=== PATIENT | male | born 1945 | race African-American/Black ===

== ENCOUNTER → 2016-12-17 | Outpatient (CLI) | payer MEDICARE, OTHER ==
--- NOTE | 2016-12-17 12:09 | MR ---
EXAMINATION TYPE: MR lumbar spine wo con DATE OF EXAM: 12/17/2016 COMPARISON: Prior MRI lumbar spine August 13, 2009. HISTORY: Lumbar stenosis and Lumbar DDD per order. Left-sided pain when walking into leg for 6 months per patient. TECHNIQUE: Multiplanar, multisequence imaging of the lumbar spine is performed without IV contrast. FINDINGS: Sagittal images of the lumbar spine show vertebral body heights to remain satisfactory. The re is straightening of lumbar spine on sagittal images. There is subtle grade 1 anterolisthesis of L3 on L4 new from prior exam measured 2 to 3 mm. There is persistent disc desiccation L3-L4 and L4-L5 l evels with mild to moderate disc space narrowing now present. There is mild anterior spurring with he terogeneous endplate changes L4-L5 level seen, they're Schmorl node in the inferior L4 endplate redem onstrated that is more prominent versus prior. No large posterior disc herniations are seen on sagitt al images The conus medullaris is stable in position ending at L1-L2 disc space level. The bone bonnie ow signal intensity otherwise is within normal limits. Axial images show the T12-L1, L1-L2, L2-L3 levels all to remain within normal limits. Axial images at L3-L4 level show mild facet degenerative changes and ligamentum flavum hypertrophy mi ldly effacing posterior lateral thecal sac on axial image 14. There is mild to moderate broad disc bu lge seen minimally effacing anterior thecal sac. There is mild to minimal bilateral anterior inferior neural foraminal narrowing. Some progression in findings from prior study is seen. Axial images at L4-L5 level show moderate broad disc bulge and mild facet degenerative changes bilate rally. There is mild effacement of the anterior thecal sac and posterior lateral thecal sac. There is mild to moderate bilateral anterior inferior neural foraminal narrowing at this level identified. Axial images at the L5-S1 level show mild facet degenerative changes bilaterally. There is broad-base d central disc protrusion seen but spinal canal is preserved and bilateral neural foramina are patent . No suspicious retroperitoneal findings are seen. Paraspinal muscle bulk is preserved. IMPRESSION: Straightening of lumbar spine is redemonstrated. There is new spondylolisthesis L3-L4 lev el. There is interval progression of degenerative changes mid to lower lumbar spine as detailed above . No prominent disc herniation is seen to account for patient's left-sided radiculopathy type symptom s. No significant spinal canal stenosis is noted.
== END | disposition home or self-care (01) ==
LOC: RADMRIMAIN 11:14
PROVIDERS: ATTEND Orthopaedic Surgery
DX: M43.16 Spondylolisthesis, lumbar region (principal); M47.816 Spondylosis without myelopathy or radiculopathy, lumbar region; R22.42 Localized swelling, mass and lump, left lower limb
CPT/HCPCS: 72148

== ENCOUNTER → 2017-04-22 | Day surgery (SDC) | payer MEDICARE, OTHER ==
[2017-04-20 14:30] VITALS: BMI 26.9
[~2017-04-22] MED LIST: LACTATED RINGERS 1,000 ML IV SCH; LIDOCAINE 1% 20 ML VIAL (10MG/ML) FOR IV START INTRADERMA ONE; PROPOFOL 10 MG/ML 20 ML VIAL IV ONE
[2017-04-22 11:30] VITALS: TEMP 97.8
--- NOTE | 2017-04-22 11:50 | P.GSHP ---
History of Present Illness H&P Date: 04/22/17 Chief Complaint: Screening colonoscopy, change in bowel habits This a 71-year-old male referred from Dr. Quevedo. Patient presents today for screening colonoscopy. His last colonoscopy is over 6 years ago. He's had some change in bowel habits with increasing constipation. Past Medical History Past Medical History: Eye Disorder, Hyperlipidemia, Hypertension Additional Past Medical History / Comment(s): glaucoma julio eyes,myasthenia gravis History of Any Multi-Drug Resistant Organisms: None Reported Additional Past Surgical History / Comment(s): thymus gland removed Past Anesthesia/Blood Transfusion Reactions: No Reported Reaction Smoking Status: Never smoker - Past Family History Mother Family Medical History: Cancer Additional Family Medical History / Comment(s): lung Medications and Allergies Home Medications Medication Instructions Recorded Confirmed Type Aspirin EC [Ecotrin] 325 mg PO DAILY 04/20/17 04/22/17 History Brinzolamide/Brimonidine Tart 1 drop BOTH EYES BID 04/20/17 04/22/17 History [Simbrinza 1%-0.2% Eye Drops] Latanoprost Ophth [Xalatan 0.005%] 1 drops BOTH EYES HS 04/20/17 04/22/17 History NIFEdipine [Procardia XL] 90 mg PO QAM 04/20/17 04/22/17 History Simvastatin [Zocor] 20 mg PO DAILY 04/20/17 04/22/17 History Tamsulosin HCl [Flomax] 0.4 mg PO DAILY 04/20/17 04/22/17 History Allergies Allergy/AdvReac Type Severity Reaction Status Date / Time No Known Allergies Allergy Verified 04/22/17 11:31 Surgical - Exam Vital Signs Temp Pulse Resp BP Pulse Ox 97.8 F 58 L 16 166/77 96 04/22/17 11:29 04/22/17 11:29 04/22/17 11:29 04/22/17 11:29 04/22/17 11:29 - General well developed, no distress - Eyes PERRL - ENT normal pinna - Neck no masses - Respiratory normal expansion - Cardiovascular Rhythm: regular - Abdomen Abdomen: soft, non tender Assessment and Plan Assessment: Change in bowel habit with constipation. We'll perform screening colonoscopy.
--- NOTE | 2017-04-22 12:04 | P.OP ---
Date of Procedure: 04/22/17 Preoperative Diagnosis: Screening colonoscopy, change in bowel habits, constipation Postoperative Diagnosis: Normal colonoscopy Procedure(s) Performed: Colonoscopy Anesthesia: MAC Surgeon: Rakesh Watters Pathology: none sent Condition: stable Disposition: PACU Description of Procedure: N PROCEDURE: The patient was placed on the endoscopy table in the lateral position. Digital rectal examination was performed which revealed no abnormalities. The prostate was symmetrical without nodules. Flexible colonoscope was then placed in the patient's anus and passed throughout the entire colon. The ileocecal valve was visualized. The cecum, ascending, transverse, descending and sigmoid colon were normal. The rectum was normal as well. There were no masses, polyps or diverticula noted in the entire colon. SUMMARY OF FINDINGS: Normal colonoscopy.
[2017-04-22 12:24] VITALS: RESP 16
[2017-04-22 12:53] VITALS: BP 146/72; PULSE 45
== END ==
LOC: ORWHC2ENDO 10:33
PROVIDERS: ATTEND Surgery
DX: K59.00 Constipation, unspecified (principal); I10 Essential (primary) hypertension; H40.9 Unspecified glaucoma; E78.5 Hyperlipidemia, unspecified; G70.00 Myasthenia gravis without (acute) exacerbation; Z79.82 Long term (current) use of aspirin; Z79.899 Other long term (current) drug therapy; R19.4 Change in bowel habit
CPT/HCPCS: 45378; J2704

== ENCOUNTER → 2018-04-25 | Outpatient (CLI) | payer MEDICARE ==
--- NOTE | 2018-04-26 18:19 | CT ---
EXAMINATION TYPE: CT abdomen pelvis w con DATE OF EXAM: 04/25/2018 COMPARISON: MRI lumbar spine dated 12/17/2016 HISTORY: Change in bowels CT DLP: 1582 mGycm Automated exposure control for dose reduction was used. TECHNIQUE: Helical acquisition of images was performed from the lung bases through the pelvis. CONTRAST: Performed with Oral Contrast and with IV Contrast, patient injected with 100 mL of Isovue 300. FINDINGS: LUNG BASES: Very minimal left basilar subsegmental dependent atelectasis is present. LIVER/GB: Liver is unremarkable and homogeneous enhancement. No intrahepatic biliary ductal dilatatio n is seen. No cholelithiasis. PANCREAS: No significant abnormality is seen. SPLEEN: No significant abnormality is seen. ADRENALS: No significant abnormality is seen. KIDNEYS: There are bilateral nonobstructing renal calculi. There is a punctate left lower pole renal calculus and a 3 mm left lower pole renal calculus. On the right there are 3 4 mm renal calculi of th e lower pole. Emanating from the left lower pole there is a 1.6 cm renal cyst. No hydronephrosis of e ither kidney. REPRODUCTIVE ORGANS: The prostate gland is heterogenous and enlarged measuring 6.6 cm in transverse d imension. There is asymmetric enlargement of the left seminal vesicle. URINARY BLADDER: No significant abnormality is seen. ADENOPATHY: Or superficial inguinal adenopathy bilaterally measuring up to 1.5 cm in short axis on t he left and 1.3 cm in short axis on the right. No retroperitoneal or mesenteric abnormal adenopathy i s seen. OSSEOUS STRUCTURES: There is a nonspecific sclerotic focus of the L4 vertebral body measuring 1 cm. This was present on the MRI lumbar spine dated 12/17/2016 and is stable, therefore likely representing a benign bone island. Degenerative change with Schmorl's node formation is seen at the inferior endpl ate of L4. Mild degenerative changes of L4-S1 are present. BOWEL: Sigmoid colon is redundant and mostly decompressed. Moderate amount retained colonic stool is seen. Oral contrast does not extend into the colon. These findings Limited evaluation of the colon. Appendix is within normal limits. Large and small bowel are nondilated. No periappendiceal or pericol onic fat stranding is seen. There is a very small fat filled umbilical hernia.. OTHER: Mild atheromatous plaquing is seen of the abdominal aorta and its branches. IMPRESSION: 1. NO EVIDENCE OF BOWEL OBSTRUCTION. EVALUATION FOR COLONIC MASSES IS LIMITED ORAL CONTRAST DOES N OT EXTEND INTO THE COLON AND THERE IS A MODERATE AMOUNT RETAINED COLONIC STOOL. GIVEN THE PATIENT'S D ESCRIBED CHANGE IN BOWEL HABITS COLONOSCOPY WOULD BE RECOMMENDED. 2. BILATERAL ABNORMAL SUPERFICIAL INGUINAL ADENOPATHY. MANAGEMENT CONSIDERATIONS WOULD BE FOR SHORT-T ERM FOLLOW-UP IN 3 MONTHS TO ASSESS STABILITY, PET/CT OR CONSIDERATION FOR PERCUTANEOUS BIOPSY IF THE RE IS CLINICAL SUSPICION. 3. ENLARGED AND HETEROGENOUS PROSTATE GLAND WITH ASYMMETRIC ENLARGEMENT OF THE LEFT SEMINAL VESICLE. CORRELATION WITH PSA IS RECOMMENDED. 4. BILATERAL NONOBSTRUCTING RENAL CALCULI AND BENIGN-APPEARING LEFT RENAL CYST.
== END | disposition home or self-care (01) ==
LOC: RADCTMAIN 13:50
PROVIDERS: ATTEND Internal Medicine
DX: N20.0 Calculus of kidney (principal); N40.0 Benign prostatic hyperplasia without lower urinary tract symptoms; N28.1 Cyst of kidney, acquired; R59.0 Localized enlarged lymph nodes; R19.4 Change in bowel habit
CPT/HCPCS: 82565; 84520; 74177; 36415; Q9967

== ENCOUNTER → 2021-01-14 | Outpatient (CLI) | payer MEDICARE ==
--- NOTE | 2021-01-14 12:58 | US ---
EXAMINATION TYPE: US thyroid st tissue head/neck DATE OF EXAM: 01/14/2021 COMPARISON: NONE CLINICAL HISTORY: R22.0 Swellling/ Mass/ palpable abnormality. Enlarged thyroid GLAND SIZE: Right Lobe: 3.4 x 0.8 x 0.9 cm Overall Parenchyma: homogenous Left Lobe: 8.4 x 6.4 x 7.1 cm, enlarged Overall Parenchyma: heterogeneous Isthmus Thickness: 0.5 cm NODULES RIGHT: # of nodules measured on right: 0 LEFT: # of nodules measured on left: 0 ISTHMUS: # of nodules measured in the isthmus: 0 Bilateral neck scanned, no evidence of lymphadenopathy. IMPRESSION: 1. Markedly enlarged left lobe thyroid which appears heterogenous. Discrete mass is not identified.
== END | disposition home or self-care (01) ==
LOC: RADUSWWP 12:07
PROVIDERS: ATTEND Internal Medicine
DX: E04.9 Nontoxic goiter, unspecified (principal)
CPT/HCPCS: 76536

== ENCOUNTER → 2022-03-24 | Outpatient (CLI) | payer MEDICARE ==
--- NOTE | 2022-03-24 15:55 | US ---
EXAMINATION TYPE: US renals and bladder DATE OF EXAM: 03/24/2022 COMPARISON: CT, US CLINICAL HISTORY: CKD. CKD. Hx of stones. EXAM MEASUREMENTS: Right Kidney: 10.7 x 5.9 x 4.4 cm Left Kidney: 10.9 x 5.0 x 4.7 cm Right Kidney: Anechoic area at mid-appearance of possible dilated collecting system: 1.5 x 1.0 x 0.7 cm. Hyperechoic focus seen at lower pole: 0.5 x 0.5 x 0.3 cm. Left Kidney: Hyperechoic focus seen at lower pole: 0.6 x 0.4 x 0.4 cm. Bladder: Not fully distended. Limited evaluation. Bilateral Jets seen: No *Prostate appears prominent in bladder images: 5.5 x 5.4 x 5.6 cm. IMPRESSION: 1. Nonobstructing inferior pole renal stones.
== END | disposition home or self-care (01) ==
LOC: RADUSWWP 14:38
PROVIDERS: ATTEND Internal Medicine Nephrology
DX: N18.32 Chronic kidney disease, stage 3b (principal); N20.0 Calculus of kidney
CPT/HCPCS: 76770

== ENCOUNTER 2022-09-27 12:11 | Emergency (ER) | payer MEDICARE ==
--- NOTE | 2022-09-27 12:45 | ED ---
General Adult HPI - General Chief complaint: Upper Respiratory Infection Stated complaint: cough Time Seen by Provider: 09/27/22 12:36 Source: patient, RN notes reviewed Mode of arrival: ambulatory Limitations: no limitations - History of Present Illness Initial comments: Patient is a pleasant 76-year-old male presenting to the emergency department with concerns with cough. Onset of symptoms was around a month ago. Patient did have productive cough however that just lasted a few days. Cough is been dry since that time. No new medications. Patient does have mild discomfort/scratchiness to his throat. No fevers. No dyspnea. No chest pain. Patient states his thyroid is chronically enlarged feels that is unchanged. Patient states he does see regularly for this and does have an appointment scheduled coming up. - Related Data Home Medications Medication Instructions Recorded Confirmed Aspirin EC [Ecotrin] 325 mg PO DAILY 04/20/17 04/22/17 Brinzolamide/Brimonidine Tart 1 drop BOTH EYES BID 04/20/17 04/22/17 [Simbrinza 1%-0.2% Eye Drops] Latanoprost Ophth [Xalatan 0.005%] 1 drops BOTH EYES HS 04/20/17 04/22/17 NIFEdipine [Procardia XL] 90 mg PO QAM 04/20/17 04/22/17 Simvastatin [Zocor] 20 mg PO DAILY 04/20/17 04/22/17 Tamsulosin HCl [Flomax] 0.4 mg PO DAILY 04/20/17 04/22/17 Allergies Allergy/AdvReac Type Severity Reaction Status Date / Time No Known Allergies Allergy Verified 09/27/22 12:25 Review of Systems ROS Statement: Those systems with pertinent positive or pertinent negative responses have been documented in the HPI. ROS Other: All systems not noted in ROS Statement are negative. Constitutional: Denies: fever Eyes: Denies: eye pain ENT: Reports: throat pain. Denies: ear pain Respiratory: Reports: as per HPI, cough Cardiovascular: Denies: chest pain Endocrine: Denies: fatigue Gastrointestinal: Denies: abdominal pain Genitourinary: Denies: urgency Musculoskeletal: Denies: back pain Past Medical History Past Medical History: Eye Disorder, Hyperlipidemia, Hypertension, Thyroid Disorder Additional Past Medical History / Comment(s): glaucoma julio eyes,myasthenia gr justin History of Any Multi-Drug Resistant Organisms: None Reported Additional Past Surgical History / Comment(s): thymus gland removed Past Anesthesia/Blood Transfusion Reactions: No Reported Reaction Past Psychological History: No Psychological Hx Reported Smoking Status: Never smoker Past Alcohol Use History: None Reported Past Drug Use History: None Reported - Past Family History Mother Family Medical History: Cancer Additional Family Medical History / Comment(s): lung General Exam Limitations: no limitations General appearance: alert, in no apparent distress Head exam: Present: normocephalic Eye exam: Present: normal appearance ENT exam: Present: normal oropharynx Neck exam: Present: thyromegaly Respiratory exam: Present: normal lung sounds bilaterally. Absent: respiratory distress, wheezes Cardiovascular Exam: Present: regular rate, normal rhythm GI/Abdominal exam: Present: soft. Absent: tenderness Extremities exam: Present: normal inspection. Absent: pedal edema, calf tenderness Neurological exam: Present: alert Psychiatric exam: Present: normal affect, normal mood Skin exam: Present: normal color Course Vital Signs 09/27/22 12:21 Temperature 98.0 F Pulse Rate 69 Respiratory 18 Rate Blood Pressure 160/85 O2 Sat by Pulse 99 Oximetry Medical Decision Making - Medical Decision Making Was pt. sent in by a medical professional or institution (, PA, [employer], urgent care, hospital, or usp...) When possible be specific @ -No Did you speak to anyone other than the patient for history (EMS, parent, family, police, friend...)? What history was obtained from this source @ -No Did you review nursing and triage notes (agree or disagree)? Why? @ -I reviewed and agree with nursing and triage notes Were old charts reviewed (outside hosp., previous admission, EMS record, old EKG, old radiological studies, urgent care reports/EKG's, usp records)? Report findings @ -No old charts were reviewed Differential Diagnosis (chest pain, altered mental status, abdominal pain women, abdominal pain men, vaginal bleeding, weakness, fever, dyspnea, syncope, headache, dizziness, GI bleed, back pain, seizure, CVA, palpatations, mental health)? @ -Differential Fever: Pneumonia, viral URI, endocarditis, myocarditis, pericarditis, otitis, sinusitis, peritonsillar Abscess, retropharyngeal Abscess, epiglottitis, peritonitis, appendicitis, Dominga cystitis, diverticulitis, hepatitis, colitis, UTI, PID, TOA, pyelonephritis, prostatitis, epididymitis, meningitis, en cephalitis, pulmonary embolism, CVA, thyroid storm, pancreatitis, adrenal crisis, cavernous sinus thrombosis, this is not meant to be an all-inclusive list. EKG interpreted by me (3pts min.). @ -As above X-rays interpreted by me (1pt min.). @ -Chest x-ray shows no acute process. Soft tissue neck x-ray shows thyroid prominence possible mass CT interpreted by me (1pt min.). @ -None done U/S interpreted by me (1pt. min.). @ -None done What testing was considered but not performed or refused? (CT, X-rays, U/S, labs)? Why? @ -None What meds were considered but not given or refused? Why? @ -None Did you discuss the management of the patient with other professionals (professionals i.e. , PA, [employer], lab, RT, psych nurse, social service assistant, ham curer, teacher, corporation officer, egg caser)? Give summary @ -No Was smoking cessation discussed for >3mins.? @ -No Was critical care preformed (if so, how long)? @ -No Were there social determinants of health that impacted care today? How? (Homelessness, low income, unemployed, alcoholism, drug addiction, transportation, low edu. Level, literacy, decrease access to med. care, longterm, rehab)? @ -No Was there de-escalation of care discussed even if they declined (Discuss DNR or withdrawal of care, Hospice)? DNR status @ -No What co-morbidities impacted this encounter? (DM, HTN, Smoking, COPD, CAD, Ca ncer, CVA, ARF, Chemo, Hep., AIDS, mental health diagnosis, sleep apnea, morbid obesity)? @ -None Was patient admitted / discharged? Hospital course, mention meds given and route, prescriptions, significant lab abnormalities, going to OR and other pertinent info. @ -Patient reevaluated. Patient updated. Patient is not a candidate for anti viral therapy secondary to onset close to a month ago. Patient is in no respiratory distress and stable for discharge. Patient is advised ENT follow-up regarding his thyroid. Patient is made aware of concern for this. Undiagnosed new problem with uncertain prognosis? @ -No Drug Therapy requiring intensive monitoring for toxicity (Heparin, Nitro, Insulin, Cardizem)? @ -No Were any procedures done? @ -No Diagnosis/symptom? @ -COVID-19, thyromegaly Acute, or Chronic, or Acute on Chronic? @ -Acute, chronic Uncomplicated (without systemic symptoms) or Complicated (systemic symptoms)? @ -default Side effects of treatment? @ -No Exacerbation, Progression, or Severe Exacerbation? @ -No Poses a threat to life or bodily function? How? (Chest pain, [place], AR, pneumonia, PE, COPD, DKA, ARF, appy, cholecystitis, CVA, Diverticulitis, Homicidal, Suicidal, threat to staff... and all critical care pts) @ -No - Lab Data Lab Results 09/27/22 Range/Units 12:54 Influenza Type A (PCR) Not Detected (Not Detectd) Influenza Type B (PCR) Not Detected (Not Detectd) RSV (PCR) Not Detected (Not Detectd) SARS-CoV-2 (PCR) Detected A (Not Detectd) Disposition Clinical Impression: Thyromegaly, Thyroid mass, COVID-19 Disposition: HOME SELF-CARE Condition: Stable Instructions (If sedation given, give patient instructions): COVID-19 (Coronavirus Disease 2019) (ED) Additional Instructions: Please do follow-up through primary care physician in the next couple days for recheck. Please also follow-up with ENT within the week, number provided. Return for difficulty breathing, not tolerating fluids, fevers, worsening symptoms or other concerns. Is patient prescribed a controlled substance at d/c from ED?: No Referrals: Kale Quevedo MD [Primary Care Provider] - 1-2 days Jaime Ovalle MD [STAFF PHYSICIAN] - 1-2 days Time of Disposition: 14:18
--- NOTE | 2022-09-27 13:15 | XR ---
EXAMINATION TYPE: XR chest 2V DATE OF EXAM: 09/27/2022 COMPARISON: NONE HISTORY: Shortness of breath TECHNIQUE: Frontal and lateral views of the chest are obtained. FINDINGS: Scattered senescent parenchymal changes noted. Hyperinflation compatible with COPD. No evidence for infiltrate. No evidence for atelectasis. Heart size is stable. Median sternotomy changes. Tracheal deviation from left to right may reflect underlying thyroid mass. No evidence for hilar prominence. Degenerative changes dorsal spine. IMPRESSION: 1. No evidence for acute pulmonary disease.
--- NOTE | 2022-09-27 13:16 | XR ---
EXAMINATION TYPE: XR soft tissue neck DATE OF EXAM: 09/27/2022 COMPARISON: NONE HISTORY: Cough TECHNIQUE: 2 views of the soft tissues of the neck are submitted. FINDINGS: The airway is patent. Normal appearing epiglottis. Retropharyngeal soft tissues are withi n normal limits. No evidence for radiopaque foreign body. Degenerative changes cervical spine. Trac heal deviation from left to right. Suspect underlying mass possibly of thyroid origin. IMPRESSION: Tracheal deviation from left to right. Suspect underlying mass possibly of thyroid origin.
[2022-09-27 14:36] VITALS: BP 140/80; PULSE 70; RESP 16; TEMP 98.3
== END 2022-09-27 14:41 | disposition home or self-care (01) ==
LOC: EC 12:11
DX: E01.0 Iodine-deficiency related diffuse (endemic) goiter (principal); C73 Malignant neoplasm of thyroid gland; U07.1 COVID-19; E78.5 Hyperlipidemia, unspecified; I10 Essential (primary) hypertension; Z79.899 Other long term (current) drug therapy; Z79.82 Long term (current) use of aspirin
CPT/HCPCS: 70360; 71046; 87636; 99283

== ENCOUNTER → 2022-12-20 | Outpatient (CLI) | payer MEDICARE | END | disposition home or self-care (01) | LOC: LABWHC1 14:21 | PROVIDERS: ATTEND Internal Medicine Nephrology | DX: N18.32 Chronic kidney disease, stage 3b (principal) | CPT/HCPCS: 36415; 80051; 82565; 84520; 85025; 85610; 85730; 86850; 86900; 86901 ==

== ENCOUNTER 2022-12-22 07:57 | Day surgery (SDC) | payer MEDICARE ==
[2022-12-20 16:23] LABS: Partial Thromboplastin Time 23.8 sec (22.0-30.0); Prothrombin Time 10.4 sec (9.0-12.0)
[2022-12-20 16:27] LABS: Anisocytosis Slight; Basophils % (A) 1 %; Eosinophils # (A) 0.1 k/uL (0-0.7); Eosinophils % (A) 1 %; HCT 37.2 % (39.0-53.0); HGB 11.4 gm/dL (13.0-17.5); Hypochromasia Slight; Lymphocytes # (A) 1.2 k/uL (1.0-4.8); Lymphocytes % (A) 24 %; MCH 26.2 pg (25.0-35.0); MCHC 30.8 g/dL (31.0-37.0); MCV 85.2 fL (80.0-100.0); Mean Platelet Volume 7.9; Monocytes # (A) 0.4 k/uL (0-1.0); Monocytes % (A) 7 %; Neutrophils # (A) 3.2 k/uL (1.3-7.7); Neutrophils % (A) 66 %; Platelet Count 165 k/uL (150-450); RBC 4.36 m/uL (4.30-5.90); RDW 16.1 % (11.5-15.5); WBC 4.8 k/uL (3.8-10.6)
[2022-12-20 16:35] LABS: African American GFR (CKD) 16 (>60 ml/min/1.73 sqM); Anion Gap 8 mmol/L; Blood Urea Nitrogen 48 mg/dL (9-20); Carbon Dioxide 25 mmol/L (22-30); Chloride 111 mmol/L (98-107); Non-African American GFR(CKD) 14 (>60 ml/min/1.73 sqM); Potassium 5.1 mmol/L (3.5-5.1); Sodium 144 mmol/L (137-145)
[2022-12-22] MEDS ORDERED: HYDROmorphone 0.5 MG/0.5 ML SYRINGE IVP PRN (08:18)
[2022-12-22] MEDS ORDERED: ALPRAZolam 0.25 MG TAB PO PRN (08:18)
[2022-12-22] MEDS ORDERED: DESMOPRESSIN ACETATE 32 MCG in SODIUM CHLORIDE 0.9% 50 ML IVPB ONE (09:00)
[2022-12-22 09:23] VITALS: RESP 16; TEMP 97.7
--- NOTE | 2022-12-22 12:29 | CT ---
EXAMINATION TYPE: CT biopsy renal LT DATE OF EXAM: 12/22/2022 COMPARISON: NONE HISTORY: Chronic renal disease CT DLP: 3176 mGycm The procedure was explained to the patient. The risks, complications, benefits, and alternatives wer e discussed and any questions were answered. Informed consent was obtained. Patient was placed pron e on the CT table and prepped and draped in the usual sterile fashion. Utilizing CT guidance, an 18 gauge core biopsy needle access into the left renal cortex was achieved and three 18 gauge core samples were obtained. The patient was stable throughout the procedure and r emained stable upon discharge. IMPRESSION: Successful 18 gauge core biopsy of the kidney function.
[2022-12-23 15:42] VITALS: BP 154/76; PULSE 54
== END 2022-12-22 14:35 | disposition home or self-care (01) ==
LOC: RADPROMAIN 07:57
PROVIDERS: ATTEND Internal Medicine Nephrology
DX: I12.9 Hypertensive chronic kidney disease with stage 1 through stage 4 chronic kidney disease, or unspecified chronic kidney disease (principal); N18.9 Chronic kidney disease, unspecified
CPT/HCPCS: 86900; 86901; 80051; 82565; 84520; 85025; 85610; 85730; 86850; 36415 ×2; 50200; 77012; J2597; J1170

== ENCOUNTER 2023-08-03 07:59 | Day surgery (SDC) | payer MEDICARE ==
[~2023-08-03 07:59] MED LIST changes: +HYDROmorphone 0.5 MG/0.5 ML SYRINGE IVP PRN; +LIDOCAINE 1% (10MG/ML) FOR IV START INTRADERMA PRN; -LIDOCAINE 1% 20 ML VIAL (10MG/ML) FOR IV START INTRADERMA ONE; -PROPOFOL 10 MG/ML 20 ML VIAL IV ONE; +droPERidol 5 MG/2 ML VIAL IVP ONE
[2023-08-03] MEDS: LACTATED RINGERS 1,000 ML IV ONE (08:20)
[2023-08-03] MEDS: SODIUM CHLORIDE 0.9% 500 ML 500 ML IV ONE (08:20)
[2023-08-03] MEDS: ONDANSETRON 4 MG/2 ML VIAL IVP ONE (09:34)
[2023-08-03] MEDS: DEXAMETHASONE SOD PHOSPHATE 4 MG/ML 1 ML VIAL IV ONE (09:34)
[2023-08-03 09:39] LABS: African American GFR (CKD) 11 (>60 ml/min/1.73 sqM); Anion Gap 9 mmol/L; Anisocytosis Slight; Basophils % (A) 1 %; Blood Urea Nitrogen 59 mg/dL (9-20); Calcium 7.8 mg/dL (8.4-10.2); Carbon Dioxide 22 mmol/L (22-30); Chloride 113 mmol/L (98-107); Eosinophils # (A) 0.1 k/uL (0-0.7); Eosinophils % (A) 3 %; Glucose 93 mg/dL (74-99); HCT 30.1 % (39.0-53.0); HGB 9.2 gm/dL (13.0-17.5); Lymphocytes # (A) 0.9 k/uL (1.0-4.8); Lymphocytes % (A) 21 %; MCH 25.1 pg (25.0-35.0); MCHC 30.4 g/dL (31.0-37.0); MCV 82.4 fL (80.0-100.0); Mean Platelet Volume 7.2; Monocytes # (A) 0.4 k/uL (0-1.0); Monocytes % (A) 9 %; Neutrophils # (A) 2.7 k/uL (1.3-7.7); Neutrophils % (A) 65 %; Non-African American GFR(CKD) 9 (>60 ml/min/1.73 sqM); Platelet Count 177 k/uL (150-450); Potassium 4.6 mmol/L (3.5-5.1); RBC 3.66 m/uL (4.30-5.90); RDW 16.7 % (11.5-15.5); Sodium 144 mmol/L (137-145); WBC 4.1 k/uL (3.8-10.6)
[2023-08-03] MEDS ORDERED: LIDOCAINE 1% INJ 10MG/ML (20 ML MDV) ONE (09:54)
[2023-08-03] MEDS ORDERED: fentaNYL (PF) 50 MCG/ML 2 ML AMP ONE (09:54)
[2023-08-03] MEDS ORDERED: PROTAMINE SULFATE 10 MG/ML 5 ML VIAL ONE (09:54)
[2023-08-03] MEDS ORDERED: PROPOFOL 10 MG/ML 20 ML VIAL IV ONE (09:54)
[2023-08-03] MEDS ORDERED: HEPARIN SODIUM,PORCINE 5,000 UNIT/ML 1 ML VIAL ONE (09:54)
[2023-08-03] MEDS ORDERED: MIDAZOLAM 2 MG/2 ML VIAL ONE (09:54)
[2023-08-03] MEDS: LIDOCAINE 1% INJ 10MG/ML (20 ML MDV) SQ ONE ×2 (10:35)
[2023-08-03] MEDS: THROMBIN (BOVINE) 5,000 UNIT VIAL MISCELLANE ONE (10:35)
[2023-08-03] MEDS: HEPARIN SODIUM,PORCINE (1 ML) 2,000 UNIT in SODIUM CHLORIDE 0.9% 500 ML 500 ML IRRIGATION ONE (10:37)
[2023-08-03] MEDS: ceFAZolin 2 GM in SODIUM CHLORIDE 0.9% 500 ML 500 ML IRRIGATION ONE (10:37)
--- NOTE | 2023-08-03 12:03 | P.OP ---
Date of Procedure: 08/03/23 Preoperative Diagnosis: CKD with need for hemodialysis access. Postoperative Diagnosis: Same. Procedure(s) Performed: Creation of a right upper extremity brachial artery to brachial vein AV dialysis graft utilizing 4 to 7 mm PTFE graft. Anesthesia: AGUEDA Surgeon: Austin Bone Estimated Blood Loss (ml): 15 Urine output (ml): 0 Pathology: none sent Condition: stable Disposition: no change Indications for Procedure: Patient is a 77-year-old male suffering from decreasing renal function and is in need of hemodialysis access. He was evaluated for AV fistula however his veins are not thought to be of good quality to support an AV fistula and the patient was offered an AV graft. The procedure, risk and benefits were discussed with the patient. All questions were answered to patient's satisfaction. Description of Procedure: Patient was brought the op room placed in the supine position administered general inhalational anesthesia administered by the department of anesthesiology. Patient received intravenously administered Ancef in the perioperative phase for prophylactic antibiotic therapy. The right upper extremity was sterilely prepped and draped in usual manner. Palpable radial pulse was noted at the beginning of the procedure. 1% Xylocaine was utilized for local anesthesia of the tissues overlying the distal segment of the brachial artery. Transverse skin incision was made through the studies here and carried down through the subcutaneous tissues. Hemostasis was achieved using electrocautery. Brachial artery was identified and dissected free of investing tissues and Vesseloops were utilized to control the artery both proximally and distally. The brachial vein was also identified and dissected free investing tissues and encircled with Vesseloops. 4 mm 7 mm PTFE graft was selected. A counterincision was made at the distal forearm level. Subcutaneous tunnel was created in a loop fashion in the graft was then tunneled tunneled, with care taken to avoid twisting of the graft. The patient received 5000 units of heparin intravenously. Once adequate circulation timeout occurred the Vesseloops surrounding the brachial artery were drawn close. 5 mm arteriotomy was made to extend with Guzman Metzenobias scissors. The PTFE graft was spatulated to match the arteriotomy and into side anastomosis was created with 6-0 Prolene suture placed in running fashion. Once completed flow was restored through the artery and into the graft flushing any debris or air. Flow was then restored distally. Vesseloops surrounding the vein were drawn close and a longitudinal venotomy was made and extended with Guzman scissors. The graft was cut to appropriate length and spatulated to match the venotomy. In the side anastomosis between the graft and the vein was completed with 6-0 Prolene suture placed in running fashion. Just prior to completion of anastomotic line the graft was flushed no thrombus was retrieved. The anastomotic line was completed and flow restored through the graft into the venous outflow tract. Excellent flow characteristics within the graft were noted. Patient received 12.5 mg of protamine to reverse the heparin effect. Topical thrombin and Gelfoam were placed about the anastomotic line to help assure hemostasis. The wounds were irrigated. Deep tissues were closed with 3-0 Vicryl dermis was closed with 4-0 Monocryl placed in a running intradermal fashion. Steri-Strips were applied. Appropriate dressings were then placed. Patient tolerated the procedure well. Palpable radial pulse was noted at the completion of the procedure. Patient was taken to the recovery in satisfactory and stable condition. Plan - Discharge Summary New Discharge Prescriptions: No Action Simvastatin [Zocor] 20 mg PO DAILY Latanoprost Ophth [Xalatan 0.005%] 1 drops BOTH EYES HS Brinzolamide/Brimonidine Tart [Simbrinza 1%-0.2% Eye Drops] 1 drop BOTH EYES BID Tamsulosin HCl [Flomax] 0.4 mg PO DAILY NIFEdipine [Procardia XL] 90 mg PO QAM Donepezil [Aricept] 5 mg PO HS Aspirin [Adult Low Dose Aspirin EC] 81 mg PO DAILY Discharge Medication List Brinzolamide/Brimonidine Tart [Simbrinza 1%-0.2% Eye Drops] 1 drop BOTH EYES BID 04/20/17 [History] Latanoprost Ophth [Xalatan 0.005%] 1 drops BOTH EYES HS 04/20/17 [History] NIFEdipine [Procardia XL] 90 mg PO QAM 04/20/17 [History] Simvastatin [Zocor] 20 mg PO DAILY 04/20/17 [History] Tamsulosin HCl [Flomax] 0.4 mg PO DAILY 04/20/17 [History] Aspirin [Adult Low Dose Aspirin EC] 81 mg PO DAILY 12/07/22 [History] Donepezil [Aricept] 5 mg PO HS 12/22/22 [History]
[2023-08-03 12:27] VITALS: PULSE 59; RESP 16; TEMP 97
[2023-08-03 13:10] VITALS: BP 169/80
== END 2023-08-03 13:16 | disposition home or self-care (01) ==
LOC: OR 07:59
PROVIDERS: ATTEND Surgery
DX: N18.6 End stage renal disease (principal); I12.0 Hypertensive chronic kidney disease with stage 5 chronic kidney disease or end stage renal disease; E78.00 Pure hypercholesterolemia, unspecified; N40.0 Benign prostatic hyperplasia without lower urinary tract symptoms; Z79.82 Long term (current) use of aspirin; Z79.899 Other long term (current) drug therapy; Z98.890 Other specified postprocedural states
CPT/HCPCS: 36830; 80048; 85025; L8670; J2250; J2720; J1644; J1100; J0690; J2405; J2001; J3010; J2704

== ENCOUNTER 2023-08-03 19:06 | Emergency (ER) | payer MEDICARE ==
[2023-08-03 19:32] VITALS: BP 206/94; PULSE 92; RESP 16; TEMP 97.4
--- NOTE | 2023-08-03 19:42 | ED ---
General Adult HPI - General Chief complaint: Urogenital Stated complaint: Post-op pain Time Seen by Provider: 08/03/23 19:35 Source: patient, RN notes reviewed Mode of arrival: ambulatory Limitations: no limitations - History of Present Illness Initial comments: 77-year-old male presenting to the ED with complaints of difficulty urinating. Has history of chronic kidney disease and just had dialysis graft placed in his right arm by Dr. Talavera Reports since the morning has been unable to urinate. Denies fever or chills. No chest pain shortness of breath. No other complaints at this time. - Related Data Home Medications Medication Instructions Recorded Confirmed Brinzolamide/Brimonidine Tart 1 drop BOTH EYES BID 04/20/17 08/03/23 [Simbrinza 1%-0.2% Eye Drops] Latanoprost Ophth [Xalatan 0.005%] 1 drops BOTH EYES HS 04/20/17 08/03/23 NIFEdipine [Procardia XL] 90 mg PO QAM 04/20/17 08/03/23 Simvastatin [Zocor] 20 mg PO DAILY 04/20/17 08/03/23 Tamsulosin HCl [Flomax] 0.4 mg PO DAILY 04/20/17 08/03/23 Aspirin [Adult Low Dose Aspirin EC] 81 mg PO DAILY 12/07/22 08/03/23 Donepezil [Aricept] 5 mg PO HS 12/22/22 08/03/23 Previous Rx's Medication Instructions Recorded HYDROcodone/APAP 5-325MG [[place] 1 tab PO Q6HR PRN 3 Days #10 tab 08/03/23 5-325] Allergies Allergy/AdvReac Type Severity Reaction Status Date / Time No Known Allergies Allergy Verified 12/22/22 09:09 Review of Systems ROS Statement: Those systems with pertinent positive or pertinent negative responses have been documented in the HPI. ROS Other: All systems not noted in ROS Statement are negative. Past Medical History Past Medical History: Eye Disorder, Hyperlipidemia, Hypertension, Renal Disease, Thyroid Disorder Additional Past Medical History / Comment(s): glaucoma julio eyes,myasthenia gravis History of Any Multi-Drug Resistant Organisms: None Reported Additional Past Surgical History / Comment(s): thymus gland removed 1988. dialysis graft Past Anesthesia/Blood Transfusion Reactions: No Reported Reaction Past Psychological History: No Psychological Hx Reported Smoking Status: Never smoker Past Alcohol Use History: Occasional Past Drug Use History: None Reported - Past Family History Mother Family Medical History: Cancer Additional Family Medical History / Comment(s): lung General Exam - General Exam Comments Initial Comments: Visual Physical Exam Vital signs reviewed General: Well-appearing, nontoxic, no acute distress. Head: Normocephalic, atraumatic Eyes: PERRLA, EOMI ENT: Airway patent Chest: Nonlabored breathing Skin: No visual rash, normal skin tone Neuro: Alert and oriented 3 Musculoskeletal: No gross abnormalities Limitations: no limitations General appearance: alert, in no apparent distress Eye exam: Present: normal appearance Neck exam: Present: normal inspection Respiratory exam: Present: normal lung sounds bilaterally Cardiovascular Exam: Present: regular rate GI/Abdominal exam: Present: soft. Absent: distended, tenderness, guarding, rebound, rigid Neurological exam: Present: alert, oriented X3 Skin exam: Present: warm, dry Course Vital Signs 08/03/23 19:10 Temperature 97.4 F L Pulse Rate 92 Respiratory 16 Rate Blood Pressure 206/94 O2 Sat by Pulse 98 Oximetry Medical Decision Making - Medical Decision Making Quicknote portion performed. Signed Blaise Muhammad PA-C Was pt. sent in by a medical professional or institution (JOSEE Villalobos, BEHAVIORAL HEALTH CASE MANAGER, urgent care, hospital, or snf...) When possible be specific @ -No Did you speak to anyone other than the patient for history (EMS, parent, family, police, friend...)? What history was obtained from this source @ -No Did you review nursing and triage notes (agree or disagree)? Why? @ -I reviewed and agree with nursing and triage notes Were old charts reviewed (outside hosp., previous admission, EMS record, old EKG, old radiological studies, urgent care reports/EKG's, snf records)? Report findings @ -No old charts were reviewed Differential Diagnosis (chest pain, altered mental status, abdominal pain women, abdominal pain men, vaginal bleeding, weakness, fever, dyspnea, syncope, headache, dizziness, GI bleed, back pain, seizure, CVA, palpatations, mental health, musculoskeletal)? @ -Differential Abdominal Pain Men: Appendicitis, cholecystitis, diverticulosis, ischemic bowel, pancreatitis, hepatitis, UTI, gastroenteritis, AAA, incarcerated hernia, bowel obstruction, constipation, inflammatory bowel, hepatitis, peptic ulcer disease, splenic infarction, perforated viscus, testicular torsion, this is not meant to be an all-inclusive list EKG interpreted by me (3pts min.). @ -None X-rays interpreted by me (1pt min.). @ -None done CT interpreted by me (1pt min.). @ -None done U/S interpreted by me (1pt. min.). @ -None done What testing was considered but not performed or refused? (CT, X-rays, U/S, labs)? Why? @ -None What meds were considered but not given or refused? Why? @ -None Did you discuss the management of the patient with other professionals (professionals i.e. DrKlaus, PA, BEHAVIORAL HEALTH CASE MANAGER, lab, RT, psych nurse, director of social media marketing, time lock expert, teacher, field artillery officer, high risk case manager)? Give summary @ -No Was smoking cessation discussed for >3mins.? @ -No Was critical care preformed (if so, how long)? @ -No Were there social determinants of health that impacted care today? How? (Homelessness, low income, unemployed, alcoholism, drug addiction, transportation, low edu. Level, literacy, decrease access to med. care, fci, rehab)? @ -No Was there de-escalation of care discussed even if they declined (Discuss DNR or withdrawal of care, Hospice)? DNR status @ -No What co-morbidities impacted this encounter? (DM, HTN, Smoking, COPD, CAD, Cancer, CVA, ARF, Chemo, Hep., AIDS, mental health diagnosis, sleep apnea, morbid obesity)? @ -None Was patient admitted / discharged? Hospital course, mention meds given and route, prescriptions, significant lab abnormalities, going to OR and other pertinent info. @ -Discharge 77-year-old male with a past medical history significant for chronic kidney disease reporting he had a hemodialysis shunt placed today this morning by Dr. Talavera. Reports that since then he has been unable to urinate. Upon arrival to the ED bladder scan showed greater than 500 cc. Laboratory studies reviewed. CBC largely unremarkable. Chemistry panel significant for elevations in BUN and creatinine at 60 and 5.22 consistent with history of kidney disease. No other remarkable findings on chemistry panel. Urine shows no significant evidence of infection. A Marino catheter was placed and patient discharged home in stable condition with referral to see urology. Discussed return precautions with patient and family at bedside who verbalized agreement. Undiagnosed new problem with uncertain prognosis? @ -No Drug Therapy requiring intensive monitoring for toxicity (Heparin, Nitro, Insulin, Cardizem)? @ -No Were any procedures done? @ -No Diagnosis/symptom? @ -Status post dialysis shunt, difficulty urinating Acute, or Chronic, or Acute on Chronic? @ -Acute Uncomplicated (without systemic symptoms) or Complicated (systemic symptoms)? @ -Uncomplicated Side effects of treatment? @ -No Exacerbation, Progression, or Severe Exacerbation? @ -No Poses a threat to life or bodily function? How? (Chest pain, [place], [place], pneumonia, PE, COPD, DKA, ARF, appy, cholecystitis, CVA, Diverticulitis, Homicidal, Suicidal, threat to staff... and all critical care pts) @ -No - Lab Data Result diagrams: 08/03/23 21:30 08/03/23 21:30 Lab Results 08/03/23 08/03/23 08/03/23 Range/Units 21:30 21:30 21:58 WBC 6.7 (3.8-10.6) k/uL RBC 4.08 L (4.30-5.90) m/uL Hgb 10.5 L (13.0-17.5) gm/dL Hct 34.4 L (39.0-53.0) % MCV 84.1 (80.0-100.0) fL MCH 25.7 (25.0-35.0) pg MCHC 30.6 L (31.0-37.0) g/dL RDW 16.6 H (11.5-15.5) % Plt Count 182 (150-450) k/uL MPV 7.7 Neutrophils % 83 % Lymphocytes % 11 % Monocytes % 3 % Eosinophils % 2 % Basophils % 0 % Neutrophils # 5.5 (1.3-7.7) k/uL Lymphocytes # 0.8 L (1.0-4.8) k/uL Monocytes # 0.2 (0-1.0) k/uL Eosinophils # 0.1 (0-0.7) k/uL Basophils # 0.0 (0-0.2) k/uL Hypochromasia Slight Anisocytosis Slight Sodium 140 (137-145) mmol/L Potassium 4.9 (3.5-5.1) mmol/L Chloride 109 H (98-107) mmol/L Carbon Dioxide 19 L (22-30) mmol/L Anion Gap 12 mmol/L BUN 60 H (9-20) mg/dL Creatinine 5.22 H (0.66-1.25) mg/dL Est GFR (CKD-EPI)AfAm 11 (>60 ml/min/1.73 sqM) Est GFR (CKD-EPI)NonAf 10 (>60 ml/min/1.73 sqM) Glucose 123 H (74-99) mg/dL Calcium 8.1 L (8.4-10.2) mg/dL Total Bilirubin 0.4 (0.2-1.3) mg/dL AST 23 (17-59) U/L ALT 13 (4-49) U/L Alkaline Phosphatase 104 (38-126) U/L Total Protein 8.2 (6.3-8.2) g/dL Albumin 3.8 (3.5-5.0) g/dL Urine Color Colorless Urine Appearance Clear (Clear) Urine pH 6.0 (5.0-8.0) Ur Specific [place] 1.012 (1.001-1.035) Urine Protein 2+ H (Negative) Urine Glucose (UA) 2+ H (Negative) Urine Ketones Negative (Negative) Urine Blood Small H (Negative) Urine Nitrite Negative (Negative) Urine Bilirubin Negative (Negative) Urine Urobilinogen <2.0 (<2.0) mg/dL Ur Leukocyte Esterase Negative (Negative) Urine RBC 4 (0-5) /hpf Urine WBC 1 (0-5) /hpf Urine Bacteria Rare H (None) /hpf Urine Mucus Rare H (None) /hpf Disposition Clinical Impression: Difficulty urinating Disposition: HOME SELF-CARE Condition: Good Instructions (If sedation given, give patient instructions): Marino Catheter Placement and Care (ED), How to Change a Catheter Drainage Bag (DC) Additional Instructions: Please return to the Emergency Department if symptoms worsen or any other concerns. Please follow-up with urology. Is patient prescribed a controlled substance at d/c from ED?: No Referrals: None,Stated [Primary Care Provider] - 1-2 days Abel Colbert MD [STAFF PHYSICIAN] - 1-2 days Ricardo Richter MD [STAFF PHYSICIAN] - 1-2 days Time of Disposition: 22:40
[2023-08-03 21:44] LABS: Anisocytosis Slight; Basophils % (A) 0 %; Eosinophils # (A) 0.1 k/uL (0-0.7); Eosinophils % (A) 2 %; HCT 34.4 % (39.0-53.0); HGB 10.5 gm/dL (13.0-17.5); Hypochromasia Slight; Lymphocytes # (A) 0.8 k/uL (1.0-4.8); Lymphocytes % (A) 11 %; MCH 25.7 pg (25.0-35.0); MCHC 30.6 g/dL (31.0-37.0); MCV 84.1 fL (80.0-100.0); Mean Platelet Volume 7.7; Monocytes # (A) 0.2 k/uL (0-1.0); Monocytes % (A) 3 %; Neutrophils # (A) 5.5 k/uL (1.3-7.7); Neutrophils % (A) 83 %; Platelet Count 182 k/uL (150-450); RBC 4.08 m/uL (4.30-5.90); RDW 16.6 % (11.5-15.5); WBC 6.7 k/uL (3.8-10.6)
[2023-08-03 22:07] LABS: ALT 13 U/L (4-49); AST 23 U/L (17-59); African American GFR (CKD) 11 (>60 ml/min/1.73 sqM); Albumin 3.8 g/dL (3.5-5.0); Alkaline Phosphatase 104 U/L (38-126); Anion Gap 12 mmol/L; Blood Urea Nitrogen 60 mg/dL (9-20); Calcium 8.1 mg/dL (8.4-10.2); Carbon Dioxide 19 mmol/L (22-30); Chloride 109 mmol/L (98-107); Glucose 123 mg/dL (74-99); Non-African American GFR(CKD) 10 (>60 ml/min/1.73 sqM); Potassium 4.9 mmol/L (3.5-5.1); Sodium 140 mmol/L (137-145); Total Bilirubin 0.4 mg/dL (0.2-1.3); Total Protein 8.2 g/dL (6.3-8.2)
[2023-08-03 22:15] LABS: Appearance,Urine Clear (Clear); Bacteria,Urine Rare /hpf; Bilirubin,Urine Negative (Negative); Blood,Urine Small (Negative); Color,Urine Colorless; Glucose,Urine (UA) 2+ (Negative); Ketones,Urine Negative (Negative); Leukocyte Esterase,Urine Negative (Negative); Mucus,Urine Rare /hpf; Nitrite,Urine Negative (Negative); Protein,Urine 2+ (Negative); RBC,Urine 4 /hpf (0-5); Specific Gravity,Urine 1.012 (1.001-1.035); Urobilinogen,Urine <2.0 mg/dL (<2.0); WBC,Urine 1 /hpf (0-5)
== END 2023-08-03 23:05 | disposition home or self-care (01) ==
LOC: EC 19:06
DX: R39.198 Other difficulties with micturition (principal)
CPT/HCPCS: 36415; 51702; 80053; 81001; 85025; 99283

== ENCOUNTER 2023-10-01 12:56 | Observation (INO) | payer MEDICARE ==
--- NOTE | 2023-10-01 13:06 | ED ---
General Adult HPI - General Stated complaint: Syncope Time Seen by Provider: 10/01/23 12:58 Source: patient, EMS, RN notes reviewed Mode of arrival: EMS Limitations: no limitations - History of Present Illness Initial comments: Patient is a 77-year-old male presenting to the emergency department following syncopal episode. Patient felt lightheaded however did not recall passing out. EMS reports that patient was reportedly unresponsive for 2 to 5 minutes. Patient was found wet however they are unclear if patient was sweaty or somebody put water on him. Patient states he feels fine at this time he has no complaints. No chest pain or dyspnea. No abdominal or back pain. No headache or confusion or weakness. - Related Data Home Medications Medication Instructions Recorded Confirmed Brinzolamide/Brimonidine Tart 1 drop BOTH EYES BID 04/20/17 09/16/23 [Simbrinza 1%-0.2% Eye Drops] Latanoprost Ophth [Xalatan 0.005%] 1 drops BOTH EYES HS 04/20/17 09/16/23 NIFEdipine [Procardia XL] 90 mg PO QAM 04/20/17 09/16/23 Simvastatin [Zocor] 20 mg PO DAILY 04/20/17 09/16/23 Tamsulosin HCl [Flomax] 0.4 mg PO DAILY 04/20/17 09/16/23 Aspirin [Adult Low Dose Aspirin EC] 81 mg PO DAILY 12/07/22 09/16/23 Donepezil [Aricept] 5 mg PO HS 12/22/22 09/16/23 Previous Rx's Medication Instructions Recorded HYDROcodone/APAP 5-325MG [[place] 1 tab PO Q6HR PRN 3 Days #10 tab 08/03/23 5-325] Allergies Allergy/AdvReac Type Severity Reaction Status Date / Time No Known Allergies Allergy Verified 10/01/23 13:17 Review of Systems ROS Statement: Those systems with pertinent positive or pertinent negative responses have been documented in the HPI. ROS Other: All systems not noted in ROS Statement are negative. Constitutional: Denies: fever Eyes: Denies: eye pain ENT: Denies: ear pain Respiratory: Denies: cough, dyspnea Cardiovascular: Denies: chest pain Endocrine: Denies: fatigue Gastrointestinal: Denies: abdominal pain Musculoskeletal: Denies: back pain Neurological: Denies: headache, weakness Past Medical History Past Medical History: Eye Disorder, Hyperlipidemia, Hypertension, Renal Disease, Thyroid Disorder Additional Past Medical History / Comment(s): glaucoma julio eyes,myasthenia gravis History of Any Multi-Drug Resistant Organisms: None Reported Additional Past Surgical History / Comment(s): thymus gland removed 1988. dialysis graft right arm Past Anesthesia/Blood Transfusion Reactions: No Reported Reaction Smoking Status: Never smoker - Past Family History Mother Family Medical History: Cancer Additional Family Medical History / Comment(s): lung General Exam Limitations: no limitations General appearance: alert, in no apparent distress Head exam: Present: normocephalic Eye exam: Present: normal appearance, PERRL, EOMI ENT exam: Present: normal oropharynx Neck exam: Present: normal inspection. Absent: tenderness, meningismus Respiratory exam: Present: normal lung sounds bilaterally Cardiovascular Exam: Present: normal rhythm, bradycardia GI/Abdominal exam: Present: soft. Absent: tenderness Extremities exam: Present: normal inspection, full ROM. Absent: tenderness, pedal edema, calf tenderness Neurological exam: Present: alert, oriented X3, CN II-XII intact. Absent: motor sensory deficit Expanded Neurological exam: Present: protecting the airway Patient oriented to: Present: person, place, time Speech: Present: fluid speech Cranial nerves: EOM's Intact: Normal Motor strength exam: RUE: 5, LUE: 5, RLE: 5, LLE: 5 Eye Response: (4) open spontaneously Motor Response: (6) obeys commands Verbal Response: (5) oriented Psychiatric exam: Present: normal affect, normal mood Skin exam: Present: normal color Course Vital Signs 10/01/23 10/01/23 13:13 13:26 Temperature 99.5 F 98.1 F Pulse Rate 48 L 48 L Respiratory 18 18 Rate Blood Pressure 133/55 O2 Sat by Pulse 99 Oximetry EKG Findings - EKG Results: EKG: interpreted by ERMD (First-degree AV block with a AL of 255. QT 494. QTc 470), sinus rhythm, normal axis, normal QRS, normal ST/T Medical Decision Making - Medical Decision Making Was pt. sent in by a medical professional or institution (, PA, MOUNTING MACHINE OPERATOR, urgent care, hospital, or assisted...) When possible be specific @ -No Did you speak to anyone other than the patient for history (EMS, parent, family, police, friend...)? What history was obtained from this source @ -EMS helps provide history as patient did not recall having a syncopal episode Did you review nursing and triage notes (agree or disagree)? Why? @ -I reviewed and agree with nursing and triage notes Were old charts reviewed (outside hosp., previous admission, EMS record, old EKG, old radiological studies, urgent care reports/EKG's, assisted records)? Report findings @ -No old charts were reviewed Differential Diagnosis (chest pain, altered mental status, abdominal pain women, abdominal pain men, vaginal bleeding, weakness, fever, dyspnea, syncope, h eadache, dizziness, GI bleed, back pain, seizure, CVA, palpatations, mental health, musculoskeletal)? @ -Differential Syncope: Valvular disease, hypertrophic cardiomyopathy, pulmonary embolism, tamponade, tachycardia, bradycardia, MD, hypovolemia, hemorrhage, dissection, anemia, intracranial hemorrhage, seizure, hypoglycemia, carbon monoxide poisoning, this is not meant to be an all-inclusive list. EKG interpreted by me (3pts min.). @ -As above X-rays interpreted by me (1pt min.). @ -Chest x-ray shows no acute process CT interpreted by me (1pt min.). @ -CT scan of the brain does not reveal acute abnormality U/S interpreted by me (1pt. min.). @ -None done What testing was considered but not performed or refused? (CT, X-rays, U/S, labs)? Why? @ -None What meds were considered but not given or refused? Why? @ -None Did you discuss the management of the patient with other professionals (professionals i.e. , PA, MOUNTING MACHINE OPERATOR, lab, RT, psych nurse, mental health social worker, hvac specialist, teacher, human resource officer, nurse case management)? Give summary @ -Case was discussed with Dr. Jones who will admit covering hospital call Was smoking cessation discussed for >3mins.? @ -No Was critical care preformed (if so, how long)? @ -No Were there social determinants of health that impacted care today? How? (Homelessness, low income, unemployed, alcoholism, drug addiction, transportation, low edu. Level, literacy, decrease access to med. care, [place] [facility], rehab)? @ -No Was there de-escalation of care discussed even if they declined (Discuss DNR or withdrawal of care, Hospice)? DNR status @ -No What co-morbidities impacted this encounter? (DM, HTN, Smoking, COPD, CAD, Cancer, CVA, ARF, Chemo, Hep., AIDS, mental health diagnosis, sleep apnea, morbid obesity)? @ -None Was patient admitted / discharged? Hospital course, mention meds given and route, prescriptions, significant lab abnormalities, going to OR and other pertinent info. @ -Patient presents with syncopal episode. Patient does have some bradycardia and QTc 470. Patient is on Procardia. Patient will be admitted with cardiac consult. Admission orders written Undiagnosed new problem with uncertain prognosis? @ -No Drug Therapy requiring intensive monitoring for toxicity (Heparin, Nitro, Insulin, Cardizem)? @ -No Were any procedures done? @ -No Diagnosis/symptom? @ -Syncope Acute, or Chronic, or Acute on Chronic? @ -Acute Uncomplicated (without systemic symptoms) or Complicated (systemic symptoms)? @ -Default Side effects of treatment? @ -No Exacerbation, Progression, or Severe Exacerbation? @ -No Poses a threat to life or bodily function? How? (Chest pain, USA, MD, pneumonia, PE, COPD, DKA, ARF, appy, cholecystitis, CVA, Diverticulitis, Homicidal, Suicidal, threat to staff... and all critical care pts) @ -No - Lab Data Result diagrams: 10/01/23 13:37 10/01/23 13:37 Lab Results 10/01/23 10/01/23 10/01/23 Range/Units 13:37 13:37 13:37 WBC 4.3 (3.8-10.6) k/uL RBC 3.89 L (4.30-5.90) m/uL Hgb 9.9 L (13.0-17.5) gm/dL Hct 33.0 L (39.0-53.0) % MCV 84.8 (80.0-100.0) fL MCH 25.4 (25.0-35.0) pg MCHC 30.0 L (31.0-37.0) g/dL RDW 16.1 H (11.5-15.5) % Plt Count 129 L (150-450) k/uL MPV 8.5 Neutrophils % 73 % Lymphocytes % 14 % Monocytes % 9 % Eosinophils % 2 % Basophils % 1 % Neutrophils # 3.1 (1.3-7.7) k/uL Lymphocytes # 0.6 L (1.0-4.8) k/uL Monocytes # 0.4 (0-1.0) k/uL Eosinophils # 0.1 (0-0.7) k/uL Basophils # 0.0 (0-0.2) k/uL Hypochromasia Slight Anisocytosis Slight PT 11.0 (10.0-12.5) sec INR 1.0 (<1.2) APTT 24.5 (22.0-30.0) sec Sodium 138 (137-145) mmol/L Potassium 3.4 L (3.5-5.1) mmol/L Chloride 101 (98-107) mmol/L Carbon Dioxide 29 (22-30) mmol/L Anion Gap 8 mmol/L BUN 23 H (9-20) mg/dL Creatinine 3.99 H (0.66-1.25) mg/dL Est GFR (CKD-EPI)AfAm 16 (>60 ml/min/1.73 sqM) Est GFR (CKD-EPI)NonAf 14 (>60 ml/min/1.73 sqM) Glucose 127 H (74-99) mg/dL Calcium 8.6 (8.4-10.2) mg/dL Magnesium 1.8 (1.6-2.3) mg/dL Total Bilirubin 0.4 (0.2-1.3) mg/dL AST 23 (17-59) U/L ALT 10 (4-49) U/L Alkaline Phosphatase 85 (38-126) U/L Troponin I (0.000-0.034) ng/mL Total Protein 7.1 (6.3-8.2) g/dL Albumin 3.6 (3.5-5.0) g/dL 10/01/23 Range/Units 13:37 WBC (3.8-10.6) k/uL RBC (4.30-5.90) m/uL Hgb (13.0-17.5) gm/dL Hct (39.0-53.0) % MCV (80.0-100.0) fL MCH (25.0-35.0) pg MCHC (31.0-37.0) g/dL RDW (11.5-15.5) % Plt Count (150-450) k/uL MPV Neutrophils % % Lymphocytes % % Monocytes % % Eosinophils % % Basophils % % Neutrophils # (1.3-7.7) k/uL Lymphocytes # (1.0-4.8) k/uL Monocytes # (0-1.0) k/uL Eosinophils # (0-0.7) k/uL Basophils # (0-0.2) k/uL Hypochromasia Anisocytosis PT (10.0-12.5) sec INR (<1.2) APTT (22.0-30.0) sec Sodium (137-145) mmol/L Potassium (3.5-5.1) mmol/L Chloride (98-107) mmol/L Carbon Dioxide (22-30) mmol/L Anion Gap mmol/L BUN (9-20) mg/dL Creatinine (0.66-1.25) mg/dL Est GFR (CKD-EPI)AfAm (>60 ml/min/1.73 sqM) Est GFR (CKD-EPI)NonAf (>60 ml/min/1.73 sqM) Glucose (74-99) mg/dL Calcium (8.4-10.2) mg/dL Magnesium (1.6-2.3) mg/dL Total Bilirubin (0.2-1.3) mg/dL AST (17-59) U/L ALT (4-49) U/L Alkaline Phosphatase (38-126) U/L Troponin I <0.012 (0.000-0.034) ng/mL Total Protein (6.3-8.2) g/dL Albumin (3.5-5.0) g/dL Disposition Clinical Impression: Syncope Disposition: ADMITTED IP TO THIS [facility] Is patient prescribed a controlled substance at d/c from ED?: No Referrals: Nonstaff,Physician [REFERRING] - 1-2 days Time of Disposition: 14:37
[2023-10-01 13:53] LABS: Anisocytosis Slight; Basophils % (A) 1 %; Eosinophils # (A) 0.1 k/uL (0-0.7); Eosinophils % (A) 2 %; HGB 9.9 gm/dL (13.0-17.5); Hypochromasia Slight; Lymphocytes # (A) 0.6 k/uL (1.0-4.8); Lymphocytes % (A) 14 %; MCH 25.4 pg (25.0-35.0); MCV 84.8 fL (80.0-100.0); Mean Platelet Volume 8.5; Monocytes # (A) 0.4 k/uL (0-1.0); Monocytes % (A) 9 %; Neutrophils # (A) 3.1 k/uL (1.3-7.7); Neutrophils % (A) 73 %; Platelet Count 129 k/uL (150-450); RBC 3.89 m/uL (4.30-5.90); RDW 16.1 % (11.5-15.5); WBC 4.3 k/uL (3.8-10.6)
[2023-10-01 14:06] LABS: ALT 10 U/L (4-49); AST 23 U/L (17-59); African American GFR (CKD) 16 (>60 ml/min/1.73 sqM); Albumin 3.6 g/dL (3.5-5.0); Alkaline Phosphatase 85 U/L (38-126); Anion Gap 8 mmol/L; Blood Urea Nitrogen 23 mg/dL (9-20); Calcium 8.6 mg/dL (8.4-10.2); Carbon Dioxide 29 mmol/L (22-30); Chloride 101 mmol/L (98-107); Glucose 127 mg/dL (74-99); Magnesium 1.8 mg/dL (1.6-2.3); Non-African American GFR(CKD) 14 (>60 ml/min/1.73 sqM); Potassium 3.4 mmol/L (3.5-5.1); Sodium 138 mmol/L (137-145); Total Bilirubin 0.4 mg/dL (0.2-1.3); Total Protein 7.1 g/dL (6.3-8.2)
[2023-10-01 14:13] LABS: Partial Thromboplastin Time 24.5 sec (22.0-30.0)
--- NOTE | 2023-10-01 14:23 | CT ---
EXAMINATION TYPE: CT brain wo con DATE OF EXAM: 10/01/2023 COMPARISON: None HISTORY: syncope CT DLP: 1233.[address] of the brain was performed. The ventricles, basal cisterns and sulci overlying the cerebral convexities demonstrate mild enlargem ent. There is no evidence for intracranial hemorrhage or sulcal effacement. There is decreased attenuation about the periventricular white matter and deep white matter of both c erebral hemispheres, compatible with chronic small vessel ischemia. Differential diagnosis does inclu de demyelination. No mass effects are seen.No midline shift. Osseous calvarium is intact. Mucous retention cyst left maxillary sinus. If symptoms persist consider MRI. IMPRESSION: 1. Age related atrophic and chronic small vessel ischemic change without acute intracranial process s een at this time.
--- NOTE | 2023-10-01 14:30 | XR ---
EXAMINATION TYPE: XR chest 2V DATE OF EXAM: 10/01/2023 COMPARISON: 09/27/22 HISTORY: Shortness of breath TECHNIQUE: Frontal and lateral views of the chest are obtained. FINDINGS: Scattered senescent parenchymal changes noted. Hyperinflation compatible with COPD. No evidence for infiltrate. No evidence for atelectasis. Heart size is stable. Mediastinal structures are stable and grossly unremarkable. No evidence for hilar prominence. Degenerative changes dorsal spine. IMPRESSION: 1. No evidence for acute pulmonary disease.
[2023-10-01] MEDS ORDERED: NALOXONE 0.4 MG/ML 1 ML VIAL IV PRN (14:38)
[2023-10-01] MEDS: SODIUM CHLORIDE 0.9% 1,000 ML IV SCH (15:49)
--- NOTE | 2023-10-01 16:04 | P.HPIM ---
History of Present Illness H&P Date: 10/01/23 Patient is a 77-year-old male with history of end-stage renal disease, hypertension, BPH, dyslipidemia, cognitive disorders presenting with episode of syncope. Claims that he was outside with a bunch of other family members on a boat when he had an episode of syncope while standing. He is unsure for how long he was on the floor, denies any periods of confusion, loss of bowel or bladder control, or any tongue biting. He denies if anyone witnessed any seizure-like activities. He denies any chest pain, shortness of breath, palpitations. In the ED, temperature was 99.5, pulse 48, respiratory rate 18, blood pressure range between 133/55, saturating at 99% on room air. EKG independently interpreted, shows sinus bradycardia with first-degree AV block, QTc slightly prolonged. Chest x-ray independently interpreted, shows no significant opacities. Head CT does not show any acute process. WBC 4.3, hemoglobin around baseline at 9.9, platelet 129, sodium 138, potassium 3.4, creatinine 3.99, glucose 127, troponin negative. Patient admitted for further workup. Pending cardiology and nephrology evaluation. Pertinent positives and negatives as discussed in HPI, a complete review of systems was performed and all other systems are negative. Patient seen and examined at bedside. Vital signs reviewed General: nontoxic, no distress, appears at stated age Derm: warm, dry Head: atraumatic, normocephalic, symmetric Eyes: EOMI, no lid lag, anicteric sclera, pupils equal round reactive to light ENT: Nose and ears atraumatic Neck: No thyromegaly, supple Mouth: no lip lesion, mucus membranes moist Cardiovascular: S1S2 reg, bradycardic, no murmur, no edema Lungs: clear to auscultation bilateral, no rhonchi, no rales, no wheeze, no accessory muscle use Abdominal: soft, nontender to palpation, no guarding, no appreciable organomegaly Ext: no gross muscle atrophy, muscle strength muscle strength 5 out of 5 in all 4 extremities, no contractures, right arm fistula Neuro: CN II-XII grossly intact Psych: Alert, oriented, appropriate affect Assessment/Plan: Active: Syncope and collapse Sinus bradycardia with first-degree AV block Prolonged QTc -Possibly vasovagal versus secondary to bradycardia -Check orthostatic vitals -Hold nifedipine -Continue to monitor on telemetry -Cardiology consulted -TSH, echo ordered -Repeat troponin ESRD Mild hypokalemia -No indications for emergent dialysis -Nephrology consulted, pending recommendations Resolved: Chronic: Dyslipidemia Hypertension BPH Cognitive disorder The patient is admitted with an anticipated less than 2 midnight stay as observation status for evaluation of syncope. Surrogate decision-maker: Gurdeep CODE STATUS: Full code DVT prophylaxis: Subcu heparin Anticipated discharge date: Pending clinical course Anticipated discharge place: Pending clinical course A total of 55 minutes was spent on the care of this complex patient more than 50% of the time was spent in counseling and care coordination. Past Medical History Past Medical History: Eye Disorder, Hyperlipidemia, Hypertension, Renal Disease, Thyroid Disorder Additional Past Medical History / Comment(s): glaucoma julio eyes,myasthenia gravis History of Any Multi-Drug Resistant Organisms: None Reported Additional Past Surgical History / Comment(s): thymus gland removed 1988. dialysis graft right arm Past Anesthesia/Blood Transfusion Reactions: No Reported Reaction Smoking Status: Never smoker - Past Family History Mother Family Medical History: Cancer Additional Family Medical History / Comment(s): lung Medications and Allergies Home Medications Medication Instructions Recorded Confirmed Type Brinzolamide/Brimonidine Tart 1 drop BOTH EYES BID 04/20/17 10/01/23 History [Simbrinza 1%-0.2% Eye Drops] Latanoprost Ophth [Xalatan 0.005%] 1 drop BOTH EYES HS 04/20/17 10/01/23 History NIFEdipine [Procardia XL] 90 mg PO DAILY 04/20/17 10/01/23 History Simvastatin [Zocor] 20 mg PO DAILY 04/20/17 10/01/23 History Tamsulosin HCl [Flomax] 0.4 mg PO DAILY 04/20/17 10/01/23 History Aspirin [Adult Low Dose Aspirin EC] 81 mg PO DAILY 12/07/22 10/01/23 History Donepezil [Aricept] 5 mg PO DAILY 12/22/22 10/01/23 History Calcium Carbonate [Calcium] 1,200 mg PO BID 10/01/23 10/01/23 History Levothyroxine Sodium [Synthroid] 125 mcg PO DAILY 10/01/23 10/01/23 History lisinopriL [Zestril] 5 mg PO DAILY 10/01/23 10/01/23 History Allergies Allergy/AdvReac Type Severity Reaction Status Date / Time No Known Allergies Allergy Verified 10/01/23 16:01 Physical Exam Vitals: Vital Signs Temp Pulse Resp BP Pulse Ox 10/01/23 13:26 98.1 F 48 L 18 10/01/23 13:13 99.5 F 48 L 18 133/55 99 Intake and Output 10/01/23 10/01/23 10/01/23 06:59 14:59 22:59 Other: Weight 95.254 kg Results CBC & Chem 7: 10/01/23 13:37 10/01/23 13:37 Labs: Abnormal Lab Results - Last 24 Hours (Table) 10/01/23 10/01/23 Range/Units 13:37 13:37 RBC 3.89 L (4.30-5.90) m/uL Hgb 9.9 L (13.0-17.5) gm/dL Hct 33.0 L (39.0-53.0) % MCHC 30.0 L (31.0-37.0) g/dL RDW 16.1 H (11.5-15.5) % Plt Count 129 L (150-450) k/uL Lymphocytes # 0.6 L (1.0-4.8) k/uL Potassium 3.4 L (3.5-5.1) mmol/L BUN 23 H (9-20) mg/dL Creatinine 3.99 H (0.66-1.25) mg/dL Glucose 127 H (74-99) mg/dL
[2023-10-01] MEDS: CALCIUM CARBONATE 500 MG CHEWABLE PO SCH (20:52)
[2023-10-01] MEDS: DORZOLAMIDE HCL 2% DROPS 10 ML BTL BOTH EYES SCH (20:52)
[2023-10-01] MEDS: FAMOTIDINE 20 MG TAB PO SCH (20:52)
[2023-10-01] MEDS: LATANOPROST 0.005% OPHTH DROPS 2.5 ML BTL BOTH EYES SCH (22:11)
[2023-10-02 07:10] LABS: Basophils % (A) 1 %; Eosinophils # (A) 0.1 k/uL (0-0.7); Eosinophils % (A) 3 %; HCT 31.6 % (39.0-53.0); HGB 9.4 gm/dL (13.0-17.5); Hypochromasia Slight; Lymphocytes # (A) 1.4 k/uL (1.0-4.8); Lymphocytes % (A) 36 %; MCH 25.6 pg (25.0-35.0); MCHC 29.8 g/dL (31.0-37.0); MCV 85.8 fL (80.0-100.0); Monocytes # (A) 0.3 k/uL (0-1.0); Monocytes % (A) 8 %; Neutrophils # (A) 1.9 k/uL (1.3-7.7); Neutrophils % (A) 51 %; Platelet Count 121 k/uL (150-450); RBC 3.68 m/uL (4.30-5.90); WBC 3.8 k/uL (3.8-10.6)
[2023-10-02 07:28] LABS: ALT 8 U/L (4-49); AST 22 U/L (17-59); African American GFR (CKD) 12 (>60 ml/min/1.73 sqM); Albumin 3.2 g/dL (3.5-5.0); Alkaline Phosphatase 80 U/L (38-126); Anion Gap 4 mmol/L; Blood Urea Nitrogen 30 mg/dL (9-20); Calcium 7.9 mg/dL (8.4-10.2); Carbon Dioxide 29 mmol/L (22-30); Chloride 104 mmol/L (98-107); Glucose 89 mg/dL (74-99); Non-African American GFR(CKD) 10 (>60 ml/min/1.73 sqM); Potassium 4.6 mmol/L (3.5-5.1); Sodium 137 mmol/L (137-145); Total Bilirubin 0.3 mg/dL (0.2-1.3); Total Protein 6.5 g/dL (6.3-8.2)
[2023-10-02] MEDS: TAMSULOSIN 0.4 MG CAP.ER.24H PO SCH (08:50)
[2023-10-02] MEDS: FAMOTIDINE 20 MG TAB PO SCH (08:50)
[2023-10-02] MEDS: ASPIRIN 81 MG PO SCH (08:50)
[2023-10-02] MEDS: LEVOTHYROXINE 125 MCG TAB PO SCH (08:51)
[2023-10-02] MEDS: ATORVASTATIN 10 MG TAB PO SCH (08:51)
[2023-10-02] MEDS: lisinopriL 5 MG TAB PO SCH (08:51)
[2023-10-02] MEDS: DONEPEZIL 5 MG TAB PO SCH (09:26)
[2023-10-02 09:44] VITALS: RESP 14; TEMP 98
[2023-10-02 09:49] VITALS: BP 130/55; PULSE 55
--- NOTE | 2023-10-02 09:56 | P.CRDCN ---
History of Present Illness History of present illness: HISTORY OF PRESENT ILLNESS: This is a 77-year-old male with a past medical history significant for hypertension, hyperlipidemia, end-stage renal disease on hemodialysis and valvular heart disease. Patient follows in the office with Dr. Roman. We have been asked to see the patient in consultation for syncope. Patient examined at the bedside. Patient states he was getting ready to go on a boat tour yesterday when he passed out. He states he was standing in the boarding line when he began to have blurred vision. He denied any chest pain or pressure. Patient states he remembers all of the events that happened. He remembers people standing over him talking to him and stating they were going to call an ambulance and the patient states he told them not to call an ambulance but they did anyways. However according to EMS the patient was unresponsive for a minute or 2. The patient denies having any syncopal episodes in the past. The patient states that he feels like he may have been dehydrated. He states that he had dialysis in the morning and then he did not have anything to drink afterwards. He does not know exactly how much fluid was removed yesterday. He states he has been on dialysis for approximately 1 month. His normal dialysis days are Tuesday and Tuesday. Patient was found to be bradycardic with a heart rate in the 50s. Patient states his heart rate has been in the 50s60s since he was 20 years old and this is normal for him. DIAGNOSTICS: - EKG reveals sinus mechanism with first-degree AV block. No signs of acute ischemia. - Chest xray negative for acute process. - Laboratory data: WBC 3.8. Hemoglobin 9.4. Platelet count 121. Sodium 137. Potassium 4.6. BUN 30. Creatinine 5.05. Troponin 0.012. 0.036. 0.012. TSH 3.060. - Current home cardiac medications include aspirin 81 mg daily, simvastatin 20 mg daily, lisinopril 5 mg daily, and nifedipine 90 mg daily. - Most recent echocardiogram obtained in March 2023 reveals normal EF, mild to moderate TR, mild to moderate AR, mild to moderate MR. - Patient underwent Lexiscan stress test in February 2022 which was negative for ischemia REVIEW OF SYSTEMS: At the time of my exam: CONSTITUTIONAL: Denies fever or chills. HEENT: Denies blurred vision, vision changes, or eye pain. Denies hemoptysis CARDIOVASCULAR: Denies chest pain. Denies orthopnea. Denies PND. Denies palpit ations RESPIRATORY: Denies shortness of breath. GASTROINTESTINAL: Denies abdominal pain. Denies nausea or vomiting. HEMATOLOGIC: Denies bleeding disorders. GENITOURINARY: Denies any blood in urine. SKIN: Denies pruitis. Denies rash. PHYSICAL EXAM: VITAL SIGNS: Reviewed. GENERAL: Well-developed in no acute distress. HEENT: Head is normocephalic. Pupils are equal, round. Sclerae anicteric. Mucous membranes of the mouth are moist. Neck supple. No JVD or thyromegaly LUNGS: Respirations even and unlabored. Lungs essentially clear to auscultation bilaterally. HEART: Regular rate and rhythm. S1 and S2 heard. Systolic murmur noted. ABDOMEN: Soft. Nondistended. Nontender. EXTREMITIES: Normal range of motion. No clubbing or cyanosis. Peripheral pulses intact. No lower extremity edema NEUROLOGIC: Awake and alert. Oriented x 3. ASSESSMENT: Syncope Isolated reading of 1 elevated troponin of unclear significance, no evidence of ischemia/myocardial injury Hypertension Hyperlipidemia End-stage renal disease, initiated on hemodialysis approximately 1 month ago Valvular heart disease PLAN: Continue telemetry monitoring Obtain orthostatic blood pressures Nifedipine has been placed on hold Continue telemetry monitoring Patient may be discharged home this afternoon from a cardiac standpoint. May have echocardiogram performed on an outpatient basis Further recommendations pending patient course Nurse practitioner note has been reviewed by physician. Signing provider agrees with the documented findings, assessment, and plan of care documented by FACE HARDENER as a scribe. Past Medical History Past Medical History: Eye Disorder, Hyperlipidemia, Hypertension, Renal Disease, Thyroid Disorder Additional Past Medical History / Comment(s): glaucoma julio eyes,myasthenia gravis History of Any Multi-Drug Resistant Organisms: None Reported Additional Past Surgical History / Comment(s): thymus gland removed 1988. dialysis graft right arm Past Anesthesia/Blood Transfusion Reactions: No Reported Reaction Smoking Status: Never smoker - Past Family History Mother Family Medical History: Cancer Additional Family Medical History / Comment(s): lung Medications and Allergies Home Medications Medication Instructions Recorded Confirmed Type Brinzolamide/Brimonidine Tart 1 drop BOTH EYES BID 04/20/17 10/01/23 History [Simbrinza 1%-0.2% Eye Drops] Latanoprost Ophth [Xalatan 0.005%] 1 drop BOTH EYES HS 04/20/17 10/01/23 History NIFEdipine [Procardia XL] 90 mg PO DAILY 04/20/17 10/01/23 History Simvastatin [Zocor] 20 mg PO DAILY 04/20/17 10/01/23 History Tamsulosin HCl [Flomax] 0.4 mg PO DAILY 04/20/17 10/01/23 History Aspirin [Adult Low Dose Aspirin EC] 81 mg PO DAILY 12/07/22 10/01/23 History Donepezil [Aricept] 5 mg PO DAILY 12/22/22 10/01/23 History Calcium Carbonate [Calcium] 1,200 mg PO BID 10/01/23 10/01/23 History Levothyroxine Sodium [Synthroid] 125 mcg PO DAILY 10/01/23 10/01/23 History lisinopriL [Zestril] 5 mg PO DAILY 10/01/23 10/01/23 History Allergies Allergy/AdvReac Type Severity Reaction Status Date / Time No Known Allergies Allergy Verified 10/01/23 16:01 Physical Exam Vitals: Vital Signs Temp Pulse Resp BP Pulse Ox 10/02/23 06:00 52 L 16 150/72 98 10/02/23 02:00 51 L 16 130/60 98 10/01/23 22:00 48 L 16 136/71 97 10/01/23 19:46 55 L 16 139/68 100 10/01/23 18:22 98.1 F 58 L 18 147/78 100 10/01/23 13:26 98.1 F 48 L 18 10/01/23 13:13 99.5 F 48 L 18 133/55 99 Results 10/02/23 06:40 10/02/23 06:40 Cardiac Enzymes 10/01/23 10/01/23 10/01/23 Range/Units 13:37 13:37 16:58 AST 23 (17-59) U/L Troponin I <0.012 0.036 H* (0.000-0.034) ng/mL 10/01/23 10/02/23 Range/Units 22:00 06:40 AST 22 (17-59) U/L Troponin I <0.012 (0.000-0.034) ng/mL Coagulation 10/01/23 Range/Units 13:37 PT 11.0 (10.0-12.5) sec APTT 24.5 (22.0-30.0) sec CBC 10/01/23 10/02/23 Range/Units 13:37 06:40 WBC 4.3 3.8 (3.8-10.6) k/uL RBC 3.89 L 3.68 L (4.30-5.90) m/uL Hgb 9.9 L 9.4 L (13.0-17.5) gm/dL Hct 33.0 L 31.6 L (39.0-53.0) % Plt Count 129 L 121 L (150-450) k/uL Comprehensive Metabolic Panel 10/01/23 10/02/23 Range/Units 13:37 06:40 Sodium 138 137 (137-145) mmol/L Potassium 3.4 L 4.6 (3.5-5.1) mmol/L Chloride 101 104 (98-107) mmol/L Carbon Dioxide 29 29 (22-30) mmol/L BUN 23 H 30 H (9-20) mg/dL Creatinine 3.99 H 5.05 H (0.66-1.25) mg/dL Glucose 127 H 89 (74-99) mg/dL Calcium 8.6 7.9 L (8.4-10.2) mg/dL AST 23 22 (17-59) U/L ALT 10 8 (4-49) U/L Alkaline Phosphatase 85 80 (38-126) U/L Total Protein 7.1 6.5 (6.3-8.2) g/dL Albumin 3.6 3.2 L (3.5-5.0) g/dL Current Medications Generic Name Dose Route Start Last Admin Trade Name Freq PRN Reason Stop Dose Admin Aspirin 81 mg 10/02/23 09:00 Aspirin 81 Mg PO DAILY [facility] Atorvastatin Calcium 10 mg 10/02/23 09:00 Atorvastatin 10 Mg Tab PO DAILY [facility] Calcium Carbonate/Glycine 1,000 mg 10/01/23 21:00 10/01/23 20:52 Calcium Carbonate 500 Mg Chewable PO Not Given BID [facility] Donepezil HCl 5 mg 10/02/23 09:00 Donepezil 5 Mg Tab PO DAILY [facility] Dorzolamide HCl 1 drops 10/01/23 21:00 10/01/23 20:52 Dorzolamide Hcl 2% Drops 10 Ml Btl BOTH EYES 1 drops BID CECILIA Administration Famotidine 20 mg 10/02/23 09:00 Famotidine 20 Mg Tab PO DAILY [facility] Sodium Chloride 1,000 mls @ 20 mls/hr 10/01/23 14:45 10/01/23 15:49 Saline 0.9% IV 20 mls/hr .Q24H [facility] Administration Latanoprost 1 drops 10/01/23 21:00 10/01/23 22:11 Latanoprost 0.005% Ophth Drops 2.5 Ml Btl BOTH EYES 1 drops HS [facility] Administration Levothyroxine Sodium 125 mcg 10/02/23 09:00 Levothyroxine 125 Mcg Tab PO DAILY [facility] Lisinopril 5 mg 10/02/23 09:00 Lisinopril 5 Mg Tab PO DAILY [facility] Naloxone HCl 0.2 mg 10/01/23 14:38 Naloxone 0.4 Mg/Ml 1 Ml Vial IV Q2M PRN Opioid Reversal Tamsulosin HCl 0.4 mg 10/02/23 09:00 Tamsulosin 0.4 Mg Cap.Er.24h PO DAILY [facility] 10/02/23 06:40 10/02/23 06:40
--- NOTE | 2023-10-02 10:17 | P.DS ---
Providers Date of admission: 10/01/23 14:38 Expected date of discharge: 10/02/23 Attending physician: Kurt Gama MD Consults: 10/01/23 14:38 Consult Physician Routine Consulting Provider: Ulises Roman Consult Reason/Comments: syncope, sirisha, [id number] Do you want consulting provider notified?: Yes 10/01/23 15:09 Consult Physician Routine Consulting Provider: Jigna Harvey Consult Reason/Comments: ESRD Do you want consulting provider notified?: Yes Primary care physician: Vasquez Morton MD Hospital Course: Discharge Diagnosis: Syncope and collapse Sinus bradycardia with first-degree AV block Prolonged QTc ESRD Mild hypokalemia Hospital Course: 77-year-old male with history of end-stage renal disease, hypertension, BPH, dyslipidemia, cognitive disorders presenting with episode of syncope. In the ED, temperature was 99.5, pulse 48, respiratory rate 18, blood pressure range between 133/55, saturating at 99% on room air. EKG independently interpreted, shows sinus bradycardia with first-degree AV block, QTc slightly prolonged. Chest x-ray independently interpreted, shows no significant opacities. Head CT does not show any acute process. WBC 4.3, hemoglobin around baseline at 9.9, platelet 129, sodium 138, potassium 3.4, creatinine 3.99, glucose 127, troponin negative. Patient admitted for further workup. Cardiology and nephrology consulted. Patient's second troponin was mildly elevated at 0.036. Denies any chest pain. Orthostatic vitals negative. Syncope likely vasovagal. Outpatient follow-up with cardiology for echocardiogram. Nifedipine discontinued. Patient seen and examined at bedside. Vital signs reviewed and stable. General: Nontoxic, no distress, appears at stated age Derm: Warm, dry Head: Atraumatic, normocephalic, symmetric Eyes: EOMI, no lid lag, anicteric sclera Mouth: No lip lesion, mucus membranes moist Cardiovascular: S1S2 reg, no murmur Lungs: CTA bilateral, no rhonchi, no rales, no accessory muscle use Abdominal: Soft, nontender to palpation, no guarding, no appreciable organomegaly Ext: No gross muscle atrophy, no edema, no contractures Neuro: CN II-XI grossly intact, no focal neuro deficits Psych: Alert, oriented, appropriate affect A total of 33 minutes of time were spent preparing this complex discharge summary. Patient was discharged on 10/02/2023 at 0958. Patient Condition at Discharge: Stable Plan - Discharge Summary New Discharge Prescriptions: Continue Simvastatin [Zocor] 20 mg PO DAILY Latanoprost Ophth [Xalatan 0.005%] 1 drop BOTH EYES HS Brinzolamide/Brimonidine Tart [Simbrinza 1%-0.2% Eye Drops] 1 drop BOTH EYES BID Tamsulosin HCl [Flomax] 0.4 mg PO DAILY Donepezil [Aricept] 5 mg PO DAILY lisinopriL [Zestril] 5 mg PO DAILY Aspirin [Adult Low Dose Aspirin EC] 81 mg PO DAILY Levothyroxine Sodium [Synthroid] 125 mcg PO DAILY Calcium Carbonate [Calcium] 1,200 mg PO BID Discontinued NIFEdipine [Procardia XL] 90 mg PO DAILY Discharge Medication List Brinzolamide/Brimonidine Tart [Simbrinza 1%-0.2% Eye Drops] 1 drop BOTH EYES BID 04/20/17 [History] Latanoprost Ophth [Xalatan 0.005%] 1 drop BOTH EYES HS 04/20/17 [History] Simvastatin [Zocor] 20 mg PO DAILY 04/20/17 [History] Tamsulosin HCl [Flomax] 0.4 mg PO DAILY 04/20/17 [History] Aspirin [Adult Low Dose Aspirin EC] 81 mg PO DAILY 12/07/22 [History] Donepezil [Aricept] 5 mg PO DAILY 12/22/22 [History] Calcium Carbonate [Calcium] 1,200 mg PO BID 10/01/23 [History] Levothyroxine Sodium [Synthroid] 125 mcg PO DAILY 10/01/23 [History] lisinopriL [Zestril] 5 mg PO DAILY 10/01/23 [History] Follow up Appointment(s)/Referral(s): Catrachito Santos MD [STAFF PHYSICIAN] - 1 Week Nonstaff,Physician [REFERRING] - 1-2 days Patient Instructions/Handouts: Syncope (DC), Bradycardia (DC) Activity/Diet/Wound Care/Special Instructions: Please see your PCP and cardiology. You will need an echocardiogram. Discharge Disposition: HOME SELF-CARE
== END 2023-10-02 11:24 | disposition home or self-care (01) ==
LOC: SUPCPDRO 12:56 → EC 12:56 → 6NMEDSUR 14:38 → 3SCARD 19:27
PROVIDERS: ADMIT Student in an Organized Health Care Education/Training Program; ATTEND Student in an Organized Health Care Education/Training Program
DX: R55 Syncope and collapse (principal); I44.0 Atrioventricular block, first degree; N18.6 End stage renal disease; R94.31 Abnormal electrocardiogram [ECG] [EKG]; E87.6 Hypokalemia; I12.0 Hypertensive chronic kidney disease with stage 5 chronic kidney disease or end stage renal disease; E78.5 Hyperlipidemia, unspecified; F10.20 Alcohol dependence, uncomplicated; E11.22 Type 2 diabetes mellitus with diabetic chronic kidney disease
CPT/HCPCS: 99285; 36415; 93005; 80053 ×2; 84443; 83735; 84484; 85025 ×2; 85610; 85730; 71046; 70450; G0378 ×2

== ENCOUNTER → 2023-10-12 | Outpatient (CLI) | payer MEDICARE ==
[2023-10-13 03:52] LABS: T4, Free (Free Thyroxine) 1.38 ng/dL (0.80-1.80)
== END | disposition home or self-care (01) ==
LOC: LABWHC1 15:21
PROVIDERS: ATTEND Internal Medicine
DX: C73 Malignant neoplasm of thyroid gland (principal); E03.9 Hypothyroidism, unspecified
CPT/HCPCS: 36415; 84432; 84439; 84443; 86800

== ENCOUNTER 2024-02-07 08:21 | Observation (INO) | payer MEDICARE ==
[2024-02-07] MEDS ORDERED: NALOXONE 0.4 MG/ML 1 ML VIAL IV PRN (08:53)
--- NOTE | 2024-02-07 08:53 | ED ---
General Adult HPI - General Chief complaint: Recheck/Abnormal Lab/Rx Stated complaint: Port clogged Time Seen by Provider: 02/07/24 08:22 Source: patient, RN notes reviewed Mode of arrival: ambulatory Limitations: no limitations - History of Present Illness Initial comments: 78-year-old male presents emergency department chief complaint of fistula proble ms. Patient states he went to dialysis today states that they could not access his fistula and there was no thrill. Patient denies any other complaints he does have some discomfort in his right forearm where his fistula is. Patient states this was done by Dr. Talavera over 1 year ago. Patient denies any chest pain shortness of breath. Patient states he did have dialysis on Tuesday. - Related Data Home Medications Medication Instructions Recorded Confirmed Brinzolamide/Brimonidine Tart 1 drop BOTH EYES BID 04/20/17 02/07/24 [Simbrinza 1%-0.2% Eye Drops] Latanoprost Ophth [Xalatan 0.005%] 1 drop BOTH EYES HS 04/20/17 02/07/24 Simvastatin [Zocor] 20 mg PO HS 04/20/17 02/07/24 Tamsulosin HCl [Flomax] 0.4 mg PO DAILY 04/20/17 02/07/24 Donepezil [Aricept] 5 mg PO HS 12/22/22 02/07/24 Calcium Acetate [Phoslo] 667 mg PO AC-TID 02/07/24 02/07/24 Levothyroxine Sodium [Synthroid] 137 mcg PO DAILY 02/07/24 02/07/24 lisinopriL [Zestril] 10 mg PO DAILY 02/07/24 02/07/24 Allergies Allergy/AdvReac Type Severity Reaction Status Date / Time No Known Allergies Allergy Verified 02/07/24 09:32 Review of Systems ROS Statement: Those systems with pertinent positive or pertinent negative responses have been documented in the HPI. ROS Other: All systems not noted in ROS Statement are negative. Past Medical History Past Medical History: Eye Disorder, Hyperlipidemia, Hypertension, Renal Disease, Thyroid Disorder Additional Past Medical History / Comment(s): glaucoma julio eyes,myasthenia gravis, dialysis Tue, Thurs, Sat, History of Any Multi-Drug Resistant Organisms: None Reported Additional Past Surgical History / Comment(s): thymus gland removed 1988. dialysis graft right arm Past Anesthesia/Blood Transfusion Reactions: No Reported Reaction Past Psychological History: No Psychological Hx Reported Smoking Status: Never smoker Past Alcohol Use History: None Reported Past Drug Use History: None Reported - Past Family History Mother Family Medical History: Cancer Additional Family Medical History / Comment(s): lung General Exam Limitations: no limitations General appearance: alert, in no apparent distress Head exam: Present: atraumatic, normocephalic, normal inspection ENT exam: Present: normal exam, mucous membranes moist Neck exam: Present: normal inspection, full ROM. Absent: tenderness, meningismus, lymphadenopathy Respiratory exam: Present: normal lung sounds bilaterally. Absent: respiratory distress, wheezes, rales, rhonchi, stridor Cardiovascular Exam: Present: regular rate, normal rhythm, normal heart sounds. Absent: systolic murmur, diastolic murmur, rubs, gallop, clicks Neurological exam: Present: alert Skin exam: Present: warm, dry, intact, normal color. Absent: rash Course Vital Signs 02/07/24 02/07/24 02/07/24 08:21 10:15 11:23 Temperature 97.7 F 97.8 F Pulse Rate 57 L 52 L 45 L Respiratory 18 16 18 Rate Blood Pressure 189/75 164/80 165/79 O2 Sat by Pulse 100 99 100 Oximetry Medical Decision Making - Medical Decision Making Was pt. sent in by a medical professional or institution (Dr. PA, RAFTSMAN, urgent care, hospital, or care home...) When possible be specific @ -Dialysis Did you speak to anyone other than the patient for history (EMS, parent, family, police, friend...)? What history was obtained from this source @ -No Did you review nursing and triage notes (agree or disagree)? Why? @ -I reviewed and agree with nursing and triage notes Were old charts reviewed (outside hosp., previous admission, EMS record, old EKG, old radiological studies, urgent care reports/EKG's, care home records)? Report findings @ -No old charts were reviewed Differential Diagnosis (chest pain, altered mental status, abdominal pain women, abdominal pain men, vaginal bleeding, weakness, fever, dyspnea, syncope, headache, dizziness, GI bleed, back pain, seizure, CVA, palpatations, mental health, musculoskeletal)? @ -Fistula complications, malfunctioning fistula, ESRD EKG interpreted by me (3pts min.). @ -None X-rays interpreted by me (1pt min.). @ -None done CT interpreted by me (1pt min.). @ -None done U/S interpreted by me (1pt. min.). @ -None done What testing was considered but not performed or refused? (CT, X-rays, U/S, labs)? Why? @ -None What meds were considered but not given or refused? Why? @ -None Did you discuss the management of the patient with other professionals (professionals i.e. , PA, RAFTSMAN, lab, RT, psych nurse, social media campaign manager, diploma medical assistant, teacher, fisheries enforcement officer, window caser)? Give summary @ -Discussed the case with vascular who come evaluate the patient. Discussed case with sound physician for admission Was smoking cessation discussed for >3mins.? @ -No Was critical care preformed (if so, how long)? @ -No Were there social determinants of health that impacted care today? How? (Homelessness, low income, unemployed, alcoholism, drug addiction, transportation, low edu. Level, literacy, decrease access to med. care, nursing home, rehab)? @ -No Was there de-escalation of care discussed even if they declined (Discuss DNR or withdrawal of care, Hospice)? DNR status @ -No What co-morbidities impacted this encounter? (DM, HTN, Smoking, COPD, CAD, Cancer, CVA, ARF, Chemo, Hep., AIDS, mental health diagnosis, sleep apnea, morbid obesity)? @ -ESRD Was patient admitted / discharged? Hospital course, mention meds given and route, prescriptions, significant lab abnormalities, going to OR and other pertinent info. @ -Admitted patient has right fistula not functioning. Patient will be admitted for vascular procedure. Patient will have consult to nephrology Undiagnosed new problem with uncertain prognosis? @ -No Drug Therapy requiring intensive monitoring for toxicity (Heparin, Nitro, Insulin, Cardizem)? @ -No Were any procedures done? @ -No Diagnosis/symptom? @ -Fistula malfunction, ESRD Acute, or Chronic, or Acute on Chronic? @ -Acute, chronic Uncomplicated (without systemic symptoms) or Complicated (systemic symptoms)? @ -Complicated Side effects of treatment? @ -No Exacerbation, Progression, or Severe Exacerbation? @ -No Poses a threat to life or bodily function? How? (Chest pain, USA, AR, pneumonia, PE, COPD, DKA, ARF, appy, cholecystitis, CVA, Diverticulitis, Homicidal, Suicidal, threat to staff... and all critical care pts) @ -Yes renal failure without dialysis causing hyperkalemia and cardiac arrest - Lab Data Result diagrams: 02/07/24 08:49 02/07/24 08:49 Lab Results 02/07/24 02/07/24 02/07/24 Range/Units 08:49 08:49 08:49 WBC 6.3 (3.8-10.6) k/uL RBC 4.07 L (4.30-5.90) m/uL Hgb 11.5 L (13.0-17.5) gm/dL Hct 36.6 L (39.0-53.0) % MCV 89.9 (80.0-100.0) fL MCH 28.3 (25.0-35.0) pg MCHC 31.5 (31.0-37.0) g/dL RDW 16.7 H (11.5-15.5) % Plt Count 174 (150-450) k/uL MPV 7.3 Neutrophils % 66 % Lymphocytes % 23 % Monocytes % 7 % Eosinophils % 3 % Basophils % 1 % Neutrophils # 4.1 (1.3-7.7) k/uL Lymphocytes # 1.5 (1.0-4.8) k/uL Monocytes # 0.4 (0-1.0) k/uL Eosinophils # 0.2 (0-0.7) k/uL Basophils # 0.0 (0-0.2) k/uL Hypochromasia Slight Anisocytosis Slight PT 10.9 (10.0-12.5) sec INR 1.0 (<1.2) APTT 25.3 (22.0-30.0) sec Sodium 141 (137-145) mmol/L Potassium 5.2 H (3.5-5.1) mmol/L Chloride 99 (98-107) mmol/L Carbon Dioxide 32 H (22-30) mmol/L Anion Gap 10 mmol/L BUN 64 H (9-20) mg/dL Creatinine 10.19 H* (0.66-1.25) mg/dL Est GFR (CKD-EPI)AfAm 5 (>60 ml/min/1.73 sqM) Est GFR (CKD-EPI)NonAf 4 (>60 ml/min/1.73 sqM) Glucose 87 (74-99) mg/dL Calcium 8.1 L (8.4-10.2) mg/dL Phosphorus 4.7 H (2.5-4.5) mg/dL Magnesium 2.5 H (1.6-2.3) mg/dL Total Bilirubin 0.5 (0.2-1.3) mg/dL AST 24 (17-59) U/L ALT 12 (4-49) U/L Alkaline Phosphatase 74 (38-126) U/L Total Protein 8.3 H (6.3-8.2) g/dL Albumin 4.1 (3.5-5.0) g/dL Disposition Clinical Impression: Complication of AV dialysis fistula, ESRD (end stage renal disease) Disposition: ADMITTED IP TO THIS [facility] Time of Disposition: 08:53
[2024-02-07 09:00] LABS: Anisocytosis Slight; Basophils % (A) 1 %; Eosinophils # (A) 0.2 k/uL (0-0.7); Eosinophils % (A) 3 %; HCT 36.6 % (39.0-53.0); HGB 11.5 gm/dL (13.0-17.5); Hypochromasia Slight; Lymphocytes # (A) 1.5 k/uL (1.0-4.8); Lymphocytes % (A) 23 %; MCH 28.3 pg (25.0-35.0); MCHC 31.5 g/dL (31.0-37.0); MCV 89.9 fL (80.0-100.0); Mean Platelet Volume 7.3; Monocytes # (A) 0.4 k/uL (0-1.0); Monocytes % (A) 7 %; Neutrophils # (A) 4.1 k/uL (1.3-7.7); Neutrophils % (A) 66 %; Platelet Count 174 k/uL (150-450); RBC 4.07 m/uL (4.30-5.90); RDW 16.7 % (11.5-15.5); WBC 6.3 k/uL (3.8-10.6)
[2024-02-07 09:11] LABS: Partial Thromboplastin Time 25.3 sec (22.0-30.0); Prothrombin Time 10.9 sec (10.0-12.5)
[2024-02-07 09:21] LABS: ALT 12 U/L (4-49); AST 24 U/L (17-59); African American GFR (CKD) 5 (>60 ml/min/1.73 sqM); Albumin 4.1 g/dL (3.5-5.0); Alkaline Phosphatase 74 U/L (38-126); Anion Gap 10 mmol/L; Blood Urea Nitrogen 64 mg/dL (9-20); Calcium 8.1 mg/dL (8.4-10.2); Carbon Dioxide 32 mmol/L (22-30); Chloride 99 mmol/L (98-107); Glucose 87 mg/dL (74-99); Magnesium 2.5 mg/dL (1.6-2.3); Non-African American GFR(CKD) 4 (>60 ml/min/1.73 sqM); Phosphorus 4.7 mg/dL (2.5-4.5); Potassium 5.2 mmol/L (3.5-5.1); Sodium 141 mmol/L (137-145); Total Bilirubin 0.5 mg/dL (0.2-1.3); Total Protein 8.3 g/dL (6.3-8.2)
--- NOTE | 2024-02-07 12:43 | P.GSCN ---
History of Present Illness Consult date: 02/07/24 Reason for Consult: Malfunctioning fistula Requesting physician: Hawk Issa History of present illness: This a pleasant 78-year-old -[place] male end-stage renal disease on hemodialysis who presented to the emergency department after he went to dialysis this morning and they were unable to access his AV graft. He gets dialysis Saturdays. He has a right upper extremity brachial AV graft that was placed in August [address] Bone. States he has not had any problems with dialysis since the graft has been placed. States he has not missed any dialysis until today. His last dialysis treatment was on Tuesday without any complications. He denies any pain in his right arm, swelling, or drainage. He denies any shortness of breath, chest pain, or extremity swelling. Sodium 141 potassium 5.2 BUN 64 creatinine 10.19 magnesium 2.5 Past Medical History Past Medical History: Eye Disorder, Hyperlipidemia, Hypertension, Renal Disease, Thyroid Disorder Additional Past Medical History / Comment(s): glaucoma julio eyes,myasthenia gravis, dialysis Tue, , Tue, History of Any Multi-Drug Resistant Organisms: None Reported Additional Past Surgical History / Comment(s): thymus gland removed 1988. dialysis graft right arm Past Anesthesia/Blood Transfusion Reactions: No Reported Reaction Past Psychological History: No Psychological Hx Reported Smoking Status: Never smoker Past Alcohol Use History: None Reported Past Drug Use History: None Reported - Past Family History Mother Family Medical History: Cancer Additional Family Medical History / Comment(s): lung Medications and Allergies Home Medications Medication Instructions Recorded Confirmed Type Brinzolamide/Brimonidine Tart 1 drop BOTH EYES BID 04/20/17 02/07/24 History [Simbrinza 1%-0.2% Eye Drops] Latanoprost Ophth [Xalatan 0.005%] 1 drop BOTH EYES HS 04/20/17 02/07/24 History Simvastatin [Zocor] 20 mg PO HS 04/20/17 02/07/24 History Tamsulosin HCl [Flomax] 0.4 mg PO DAILY 04/20/17 02/07/24 History Donepezil [Aricept] 5 mg PO HS 12/22/22 02/07/24 History Calcium Acetate [Phoslo] 667 mg PO AC-TID 02/07/24 02/07/24 History Levothyroxine Sodium [Synthroid] 137 mcg PO DAILY 02/07/24 02/07/24 History lisinopriL [Zestril] 10 mg PO DAILY 02/07/24 02/07/24 History Allergies Allergy/AdvReac Type Severity Reaction Status Date / Time No Known Allergies Allergy Verified 02/07/24 09:32 Surgical - Exam Vital Signs Temp Pulse Resp BP Pulse Ox 97.7 F 57 L 18 189/75 100 02/07/24 08:21 02/07/24 08:21 02/07/24 08:21 02/07/24 08:21 02/07/24 08:21 General appearance: The patient is alert, oriented, appears in no acute distress. HET: Head is normocephalic and atraumatic. Pupils are equal and reactive. Neck: Supple. Heart: Regular. Lungs: Equal expansion, normal respiratory effort. Abdomen: Soft, nontender, nondistended. Extremities: Normal skin color and turgor. Right upper extremity AV graft with nonpalpable thrill, no audible bruit. Palpable radial pulse. Neurological: No focal deficits. Strength and sensation are grossly intact. Results - Labs 02/07/24 08:49 02/07/24 08:49 Abnormal Lab Results - Last 24 Hours (Table) 02/07/24 02/07/24 Range/Units 08:49 08:49 RBC 4.07 L (4.30-5.90) m/uL Hgb 11.5 L (13.0-17.5) gm/dL Hct 36.6 L (39.0-53.0) % RDW 16.7 H (11.5-15.5) % Potassium 5.2 H (3.5-5.1) mmol/L Carbon Dioxide 32 H (22-30) mmol/L BUN 64 H (9-20) mg/dL Creatinine 10.19 H* (0.66-1.25) mg/dL Calcium 8.1 L (8.4-10.2) mg/dL Phosphorus 4.7 H (2.5-4.5) mg/dL Magnesium 2.5 H (1.6-2.3) mg/dL Total Protein 8.3 H (6.3-8.2) g/dL Diabetes panel 02/07/24 Range/Units 08:49 Sodium 141 (137-145) mmol/L Potassium 5.2 H (3.5-5.1) mmol/L Chloride 99 (98-107) mmol/L Carbon Dioxide 32 H (22-30) mmol/L BUN 64 H (9-20) mg/dL Creatinine 10.19 H* (0.66-1.25) mg/dL Glucose 87 (74-99) mg/dL Calcium 8.1 L (8.4-10.2) mg/dL AST 24 (17-59) U/L ALT 12 (4-49) U/L Alkaline Phosphatase 74 (38-126) U/L Total Protein 8.3 H (6.3-8.2) g/dL Albumin 4.1 (3.5-5.0) g/dL Calcium panel 02/07/24 Range/Units 08:49 Calcium 8.1 L (8.4-10.2) mg/dL Phosphorus 4.7 H (2.5-4.5) mg/dL Albumin 4.1 (3.5-5.0) g/dL Pituitary panel 02/07/24 Range/Units 08:49 Sodium 141 (137-145) mmol/L Potassium 5.2 H (3.5-5.1) mmol/L Chloride 99 (98-107) mmol/L Carbon Dioxide 32 H (22-30) mmol/L BUN 64 H (9-20) mg/dL Creatinine 10.19 H* (0.66-1.25) mg/dL Glucose 87 (74-99) mg/dL Calcium 8.1 L (8.4-10.2) mg/dL Adrenal panel 02/07/24 Range/Units 08:49 Sodium 141 (137-145) mmol/L Potassium 5.2 H (3.5-5.1) mmol/L Chloride 99 (98-107) mmol/L Carbon Dioxide 32 H (22-30) mmol/L BUN 64 H (9-20) mg/dL Creatinine 10.19 H* (0.66-1.25) mg/dL Glucose 87 (74-99) mg/dL Calcium 8.1 L (8.4-10.2) mg/dL Total Bilirubin 0.5 (0.2-1.3) mg/dL AST 24 (17-59) U/L ALT 12 (4-49) U/L Alkaline Phosphatase 74 (38-126) U/L Total Protein 8.3 H (6.3-8.2) g/dL Albumin 4.1 (3.5-5.0) g/dL Assessment and Plan Assessment: 1. Right upper extremity malfunctioning AV graft 2. End-stage renal disease on hemodialysis Plan: 1. Keep n.p.o. 2. Will plan for right upper extremity fistulogram with possible intervention 3. Hemodialysis per nephrology Thank you for this consultation, we will continue to follow. The impression and plan of care has been dictated as directed. I performed a history and examination of this patient, discussed the same with the dictator. I agree with the dictator's note ,documented as a scribe. Any additional findings or plans will be noted.
[2024-02-07] MEDS: CALCIUM ACETATE 667 MG TAB PO SCH (13:27)
--- NOTE | 2024-02-07 13:40 | P.NPCON ---
History of Present Illness - Reason for Consult end stage renal disease - History of Present Illness patient is a 78-year-old male with end-stage renal disease on hemodialysis on Tuesday schedule. He was sent in from the dialysis unit due to thrombosed AVG. Patient has been evaluated by vascular surgery and is scheduled for fistulogram and thrombectomy this afternoon. No complaints of chest pain or shortness of breath. Serum potassium is 5.2. Heart rate is between 45-57 which is baseline Past Medical History Past Medical History: Eye Disorder, Hyperlipidemia, Hypertension, Renal Disease, Thyroid Disorder Additional Past Medical History / Comment(s): glaucoma julio eyes,myasthenia gravis, dialysis Tue, , Tue, History of Any Multi-Drug Resistant Organisms: None Reported Additional Past Surgical History / Comment(s): thymus gland removed 1988. dialysis graft right arm Past Anesthesia/Blood Transfusion Reactions: No Reported Reaction Past Psychological History: No Psychological Hx Reported Smoking Status: Never smoker Past Alcohol Use History: None Reported Past Drug Use History: None Reported - Past Family History Mother Family Medical History: Cancer Additional Family Medical History / Comment(s): lung Medications and Allergies Home Medications Medication Instructions Recorded Confirmed Type Brinzolamide/Brimonidine Tart 1 drop BOTH EYES BID 04/20/17 02/07/24 History [Simbrinza 1%-0.2% Eye Drops] Latanoprost Ophth [Xalatan 0.005%] 1 drop BOTH EYES HS 04/20/17 02/07/24 History Simvastatin [Zocor] 20 mg PO HS 04/20/17 02/07/24 History Tamsulosin HCl [Flomax] 0.4 mg PO DAILY 04/20/17 02/07/24 History Donepezil [Aricept] 5 mg PO HS 12/22/22 02/07/24 History Calcium Acetate [Phoslo] 667 mg PO AC-TID 02/07/24 02/07/24 History Levothyroxine Sodium [Synthroid] 137 mcg PO DAILY 02/07/24 02/07/24 History lisinopriL [Zestril] 10 mg PO DAILY 02/07/24 02/07/24 History Allergies Allergy/AdvReac Type Severity Reaction Status Date / Time No Known Allergies Allergy Verified 02/07/24 09:32 Physical Exam Vitals: Vital Signs Temp Pulse Pulse Resp BP BP Pulse Ox 02/07/24 11:42 97.7 F 52 L 16 180/81 100 02/07/24 11:23 97.8 F 45 L 18 165/79 100 02/07/24 10:15 52 L 16 164/80 99 02/07/24 08:21 97.7 F 57 L 18 189/75 100 Intake and Output 02/06/24 02/07/24 02/07/24 22:59 06:59 14:59 Other: Weight 96.162 kg patient is awake, comfortable. Alert oriented times. Examination of the heart S1 and S2 Examination of the lungs bilateral breath sounds are heard Abdomen is soft nontender Examination of lower extremities shows no evidence of edema Results - Lab Results Most recent lab results Calcium 8.1 mg/dL (8.4-10.2) L 02/07/24 08:49 Phosphorus 4.7 mg/dL (2.5-4.5) H 02/07/24 08:49 Magnesium 2.5 mg/dL (1.6-2.3) H 02/07/24 08:49 02/07/24 08:49 02/07/24 08:49 Assessment and Plan Assessment: 1. End-stage renal disease on hemodialysis on Tuesday schedule. 2. Thrombosed right forearm AV graft 3. Hypertension with CK D stage IV 4. Hyperkalemia associated with end-stage renal disease Plan: hemodialysis once access is functional. continue lisinopril, increase dose as blood pressure is elevated. Continue with PhosLo with meals Thank you for the consultation. We will continue to follow the patient with you during his hospitalization
--- NOTE | 2024-02-07 14:01 | P.HPIM ---
History of Present Illness H&P Date: 02/07/24 78 year old M with PMH of ESRD on HD TTS, Glaucoma, HTN, Hypothyroid, BPH, HLD, Dementia presents to the ED after going to HD today and staff was unable to access his AV graft. He reports no complaints otherwise. In the ED he underwent extensive evaluation. BP 189/75, HR 57, T 97.7F, RR 18, 100% on RA. CBC, Coag panel, CMP significant for RBC 4.07, Hg 11.5, Hct 36.6, K 5.2, bicarb 32, BUN 64, Cr 10.19, Ca 8.1. Phos 4.7. Mag 2.5. Patient is admitted for further workup and management. General: non toxic, no distress, appears at stated age Derm: warm, dry Head: atraumatic, normocephalic, symmetric Eyes: EOMI, no lid lag, anicteric sclera Mouth: no lip lesion, mucus membranes moist Cardiovascular: S1S2 sirisha, no murmur Lungs: Decreased BS bilateral, no rhonchi, no rales, no accessory muscle use Ext: no gross muscle atrophy, no edema, no contractures, RUE fistula Neuro: no focal neuro deficits Psych: Alert, oriented, appropriate affect Based on my assessment of this patient, this patient meets a moderate complexity level of care. Malfunctioning AV graft: Vascular surgery for RUE fistulogram with possible intervention. ESRD: Nephrology consulted for HD. Hyperkalemia: Mild elevation due to ESRD. Normocytic anemia likely AOCD from renal failure. Glaucoma: Latanoprost and Brimonidine eye drops. HTN: Lisinopril 10 mg PO QD. Hypothyroid: Synthroid 137 mcg PO QD. BPH: Flomax 0.4 mg PO QD. HLD: Lipitor 10 mg PO QHS. Dementia: Aricept 5 mg PO QHS. CODE STATUS: FULL CODE DVT Prophylaxis: Heparin SQ GI Prophylaxis: Designated medical POA if patient is not able to make medical decisions for themselves: I have reviewed the following [employer] consultant notes: Vascular, Nephro, ER provider. I have reviewed the results of the following tests: As above. I have ordered the following tests: BMP in the AM. I have discussed the care of this patient with the following independent historian: I have independently interpreted the following test below: Past Medical History Past Medical History: Eye Disorder, Hyperlipidemia, Hypertension, Renal Disease, Thyroid Disorder Additional Past Medical History / Comment(s): glaucoma julio eyes,myasthenia gravis, dialysis Tue, Thurs, Sat, History of Any Multi-Drug Resistant Organisms: None Reported Additional Past Surgical History / Comment(s): thymus gland removed 1988. dialysis graft right arm Past Anesthesia/Blood Transfusion Reactions: No Reported Reaction Past Psychological History: No Psychological Hx Reported Smoking Status: Never smoker Past Alcohol Use History: None Reported Past Drug Use History: None Reported - Past Family History Mother Family Medical History: Cancer Additional Family Medical History / Comment(s): lung Medications and Allergies Home Medications Medication Instructions Recorded Confirmed Type Brinzolamide/Brimonidine Tart 1 drop BOTH EYES BID 04/20/17 02/07/24 History [Simbrinza 1%-0.2% Eye Drops] Latanoprost Ophth [Xalatan 0.005%] 1 drop BOTH EYES HS 04/20/17 02/07/24 History Simvastatin [Zocor] 20 mg PO HS 04/20/17 02/07/24 History Tamsulosin HCl [Flomax] 0.4 mg PO DAILY 04/20/17 02/07/24 History Donepezil [Aricept] 5 mg PO HS 12/22/22 02/07/24 History Calcium Acetate [Phoslo] 667 mg PO AC-TID 02/07/24 02/07/24 History Levothyroxine Sodium [Synthroid] 137 mcg PO DAILY 02/07/24 02/07/24 History lisinopriL [Zestril] 10 mg PO DAILY 02/07/24 02/07/24 History Allergies Allergy/AdvReac Type Severity Reaction Status Date / Time No Known Allergies Allergy Verified 02/07/24 09:32 Physical Exam Vitals: Vital Signs Temp Pulse Pulse Resp BP BP Pulse Ox 02/07/24 11:42 97.7 F 52 L 16 180/81 100 02/07/24 11:23 97.8 F 45 L 18 165/79 100 02/07/24 10:15 52 L 16 164/80 99 02/07/24 08:21 97.7 F 57 L 18 189/75 100 Intake and Output 02/06/24 02/07/24 02/07/24 22:59 06:59 14:59 Other: Weight 96.162 kg Results CBC & Chem 7: 02/07/24 08:49 02/07/24 08:49 Labs: Abnormal Lab Results - Last 24 Hours (Table) 02/07/24 02/07/24 Range/Units 08:49 08:49 RBC 4.07 L (4.30-5.90) m/uL Hgb 11.5 L (13.0-17.5) gm/dL Hct 36.6 L (39.0-53.0) % RDW 16.7 H (11.5-15.5) % Potassium 5.2 H (3.5-5.1) mmol/L Carbon Dioxide 32 H (22-30) mmol/L BUN 64 H (9-20) mg/dL Creatinine 10.19 H* (0.66-1.25) mg/dL Calcium 8.1 L (8.4-10.2) mg/dL Phosphorus 4.7 H (2.5-4.5) mg/dL Magnesium 2.5 H (1.6-2.3) mg/dL Total Protein 8.3 H (6.3-8.2) g/dL Thrombosis Risk Factor Assmnt - Choose All That Apply Each Risk Factor Represents 3 Points: Age 75 years or older Thrombosis Risk Factor Assessment Total Risk Factor Score: 3 Thrombosis Risk Factor Assessment Level: Moderate Risk
[2024-02-07] MEDS: fentaNYL (PF) 50 MCG/ML 2 ML AMP IVP ONE (16:06)
[2024-02-07] MEDS: LIDOCAINE 1% INJ 10MG/ML (20 ML MDV) SQ ONE (16:06)
[2024-02-07] MEDS: MIDAZOLAM 2 MG/2 ML VIAL IVP ONE (16:07)
[2024-02-07] MEDS: HEPARIN SODIUM 1,000 UN/ML (10ML VL) IVP ONE (16:37)
[2024-02-07] MEDS: ALTEPLASE 2 MG VIAL (CATHFLO) IV ONE (16:37)
[2024-02-07] MEDS: SODIUM CHLORIDE 0.9% 500 ML 500 ML IV ONE (16:47)
--- NOTE | 2024-02-07 17:16 | P.OP ---
Date of Procedure: 02/07/24 Description of Procedure: Preoperative diagnosis: Thrombosed right upper extremity loop arteriovenous graft Postoperative diagnosis: Same plus outflow stenosis Procedure: Right upper extremity fistulogram with ultrasound guided access Percutaneous thrombectomy with AngioJet of the inflow and outflow Percutaneous transluminal balloon angioplasty of the outflow stenosis with an 8 x 40 mm balloon Conscious sedation x 45 minutes Surgeon: Jarvis Rosales DO Anesthesia : Local Estimated blood loss: Minimal Complications: None Condition: Stable Disposition: Palpable thrill with good augmentation of the loop graft Indications: 78-year-old gentleman with history of end-stage renal disease on hemodialysis via right upper extremity loop graft presents after unable to use graft for hemodialysis today. Ultrasound demonstrated thrombosed graft without any thrill. Patient states last dialysis was on Tuesday and prior to that no issues with his dialysis access. Operative narrative: After written informed consent was obtained the patient all risks benefits complications were described the patient is brought to the Jail [facility] and laid in a supine position with their right arm outstretched on an armboard. The area of the arm was prepped and draped in usual sterile fashion. Utilizing local anesthetic the fistula was accessed under ultrasound guidance and a 6-Mauritian sheath was placed at the inflow and outflow segments of the loop graft. Fistulogram was then obtained demonstrating thrombosed graft. Angiojet catheter was then placed both through the inflow and outflow of the loop graft and thrombectomy was performed. Once completed fistulogram was obtained demonstrating improved flow through the graft with some residual thrombus extending into the outflow where there was a mild stenosis. Again the AngioJet catheter was placed and thrombectomy was performed. There was some residual thrombus within the graft which was ballooned with a an 8 x 40 mm balloon as well as towards the outflow. Final angiogram was obtained demonstrating brisk flow through the graft without any residual stenosis. Central venogram was obtained demonstrating no significant stenosis with good flow to the heart. Patient tolerated procedure well all catheters and sheaths were removed and access sites were sutured in normal fashion for hemostasis. The area was then cleansed and dressings were placed. The patient taught the procedure well and was sent back to his room for recovery. He is okay to undergo dialysis today through his access.
[2024-02-07] MEDS: ALTEPLASE 2 MG VIAL (CATHFLO) IV STA (18:28)
[2024-02-07] MEDS ORDERED: BRIMONIDINE TART BOTH EYES SCH (21:00)
[2024-02-07] MEDS ORDERED: BRINZOLAMIDE BOTH EYES SCH (21:00)
[2024-02-07] MEDS ORDERED: [UNRECOGNIZED DRUG - OTHER] BOTH EYES SCH (21:00)
[2024-02-07] MEDS: HEPARIN SODIUM,PORCINE 5,000 UNIT/ML 1 ML VIAL SQ SCH (22:24)
[2024-02-07] MEDS: BRIMONIDINE TARTRATE 0.2% DROPS 5 ML BTL BOTH EYES SCH (22:25)
[2024-02-07] MEDS: DONEPEZIL 5 MG TAB PO SCH (22:25)
[2024-02-07] MEDS: ATORVASTATIN 10 MG TAB PO SCH (22:25)
[2024-02-07] MEDS: DORZOLAMIDE HCL 2% DROPS 10 ML BTL BOTH EYES SCH (22:26)
[2024-02-07] MEDS: LATANOPROST 0.005% OPHTH DROPS 2.5 ML BTL BOTH EYES SCH (22:27)
[2024-02-08] MEDS: LEVOTHYROXINE 137 MCG TAB PO SCH (06:27)
[2024-02-08 07:33] VITALS: BP 124/56; PULSE 51; RESP 14; TEMP 98
[2024-02-08] MEDS: TAMSULOSIN 0.4 MG CAP.ER.24H PO SCH (07:34)
[2024-02-08] MEDS: lisinopriL 10 MG TAB PO SCH (07:34)
--- NOTE | 2024-02-08 08:12 | IR ---
EXAMINATION TYPE: IR angio upper extremity RT DATE OF EXAM: 02/07/2024 5:03 PM COMPARISON: Pre Operative Images if available both CT/MRI or plain film CLINICAL INDICATION: Male, 78 years old with history of RIGHT ARM FISTULOGRAM, 9.1 MINS FLT, 0.034 GY ; TECHNIQUE: IR angio upper extremity RT, multiple fluoroscopic images provided for procedure. Total fluoroscopy time: 9.1 min Total submitted images to PACS: 0 DAP: 0.034 mGym2 Gycm2 uGym2 cGycm2 or equivalent. FINDINGS: IMPRESSION: 1. Report was generated for administrative purposes only. 2. Please see the operative/procedural note for further details. [facility], , 02/08/2024 8:09 AM
--- NOTE | 2024-02-08 11:07 | P.DS ---
Providers Date of admission: 02/07/24 09:19 Attending physician: Kurt Gama Consults: 02/07/24 08:45 Consult Physician Routine Consulting Provider: Jigna Harvey Consult Reason/Comments: Dialysis Do you want consulting provider notified?: Yes Consult Physician Urgent Consulting Provider: Mariana Marino Consult Reason/Comments: Malfunctioning fistula Do you want consulting provider notified?: Already Contacted Primary care physician: Vasquez Morton MD Hospital Course: Discharge Diagnosis: Malfunctioning AV graft ESRD Mild hyperkalemia Normocytic anemia Glaucoma Hypertension Hypothyroidism BPH Hyperlipidemia Dementia Hospital Course: 78 year old M with PMH of ESRD on HD TTS, Glaucoma, HTN, Hypothyroid, BPH, HLD, Dementia presents to the ED after going to HD today and staff was unable to access his AV graft. He reports no complaints otherwise. In the ED he underwent extensive evaluation. BP 189/75, HR 57, T 97.7F, RR 18, 100% on RA. CBC, Coag panel, CMP significant for RBC 4.07, Hg 11.5, Hct 36.6, K 5.2, bicarb 32, BUN 64, Cr 10.19, Ca 8.1. Phos 4.7. Mag 2.5. Patient is admitted for further workup and management. On the same day as admission patient had thrombectomy as well as angioplasty. He then had dialysis and tolerated well. Patient did have asymptomatic bradycardia so I discontinued his Aricept. At the time of disc harge patient denied any acute complaints. He was deemed stable for discharge. Patient seen and examined at bedside.[] Vital signs reviewed and stable. General: [non toxic], [no distress], [appears at stated age] Derm: [warm], [dry] Head: [atraumatic], [normocephalic], [symmetric] Eyes: [EOMI], [no lid lag], [anicteric sclera] Mouth: [no lip lesion], [mucus membranes moist] Cardiovascular: [S1S2 reg], [no murmur], [positive posterior tibial pulse bilateral], Lungs: [CTA bilateral], [no rhonchi, no rales] , [no accessory muscle use] Abdominal: [soft], [ nontender to palpation], [no guarding], [no appreciable organomegaly] Ext: [no gross muscle atrophy], [no edema], [no contractures] Neuro: [ CN II-XI grossly intact], [no focal neuro deficits] Psych: [Alert], [oriented], [appropriate affect] A total of [33] minutes of time were spent preparing this complex discharge summary . Patient discharged on [02/08/2024] Patient Condition at Discharge: Poor Plan - Discharge Summary New Discharge Prescriptions: Continue Simvastatin [Zocor] 20 mg PO HS Latanoprost Ophth [Xalatan 0.005%] 1 drop BOTH EYES HS Brinzolamide/Brimonidine Tart [Simbrinza 1%-0.2% Eye Drops] 1 drop BOTH EYES BID Tamsulosin HCl [Flomax] 0.4 mg PO DAILY lisinopriL [Zestril] 10 mg PO DAILY Calcium Acetate [PhosLo] 667 mg PO AC-TID Levothyroxine Sodium [Synthroid] 137 mcg PO DAILY Discontinued Donepezil [Aricept] 5 mg PO HS Discharge Medication List Brinzolamide/Brimonidine Tart [Simbrinza 1%-0.2% Eye Drops] 1 drop BOTH EYES BID 04/20/17 [History] Latanoprost Ophth [Xalatan 0.005%] 1 drop BOTH EYES HS 04/20/17 [History] Simvastatin [Zocor] 20 mg PO HS 04/20/17 [History] Tamsulosin HCl [Flomax] 0.4 mg PO DAILY 04/20/17 [History] Calcium Acetate [PhosLo] 667 mg PO AC-TID 02/07/24 [History] Levothyroxine Sodium [Synthroid] 137 mcg PO DAILY 02/07/24 [History] lisinopriL [Zestril] 10 mg PO DAILY 02/07/24 [History] Follow up Appointment(s)/Referral(s): Vasquez Morton MD [Primary Care Provider] - 1-2 days Discharge Disposition: HOME SELF-CARE Plan of Treatment: Stop taking Aricept as it can cause bradycardia
--- NOTE | 2024-02-08 12:00 | P.PN ---
Subjective Progress Note Date: 02/08/24 Principal diagnosis: Thrombosed AV graft Patient is seen and examined today as a follow-up. Yesterday he underwent fistulogram with percutaneous thrombectomy and transluminal balloon angioplasty. Yesterday he underwent dialysis without any complications from using loop graft however patient did have a shortened dialysis secondary to hypotension. He denies any pain to his right upper extremity. Objective - Vital Signs Vital signs: Vital Signs Temp 98.0 F 02/08/24 07:08 Pulse 51 L 02/08/24 07:08 Resp 14 02/08/24 07:08 BP 124/56 02/08/24 07:08 Pulse Ox 97 02/08/24 07:08 FiO2 Intake & Output 02/07/24 02/08/24 02/08/24 18:59 06:59 18:59 Intake Total 300 900 Output Total 1500 Balance 300 -600 Weight 96.162 kg Intake: IV 300 Hemodialysis 900 Output: Hemodialysis 1200 Hemodialysis Net Amount 300 Other: Voiding Method Toilet # Voids 3 - Exam General appearance: The patient is alert, oriented, appears in no acute distress. HET: Head is normocephalic and atraumatic. Pupils are equal and reactive. Neck: Supple. Abdomen: Soft, nondistended. Extremities: Normal skin color and turgor. Right upper extremity loop AV graft with palpable thrill and audible bruit. Neurological: Alert and oriented.. - Labs CBC & Chem 7: 02/07/24 08:49 02/07/24 08:49 Assessment and Plan Assessment: 1. Right upper extremity thrombosed AV graft status post fistulogram with percutaneous thrombectomy and transluminal balloon angioplasty 2. End-stage renal disease on hemodialysis Plan: 1. Hemodialysis per nephrology 2. Patient is cleared from vascular surgery for discharge Thank you for this consultation, we will sign off at this time. The impression and plan of care has been dictated as directed. Dr. Marino I performed a history and examination of this patient, discussed the same with the dictator. I agree with the dictator's note ,documented as a scribe. Any additional findings or plans will be noted.
--- NOTE | 2024-02-08 13:11 | P.PN ---
Subjective patient is seen for follow-up for end-stage renal disease. Status post hemodialysis yesterday. No significant complaints today. Patient tolerated treatment well and there were no issues with the access. Objective - Vital Signs Vital signs: Vital Signs Temp 98.0 F 02/08/24 07:08 Pulse 51 L 02/08/24 07:08 Resp 14 02/08/24 07:08 BP 124/56 02/08/24 07:08 Pulse Ox 97 02/08/24 07:08 FiO2 Intake & Output 02/07/24 02/08/24 02/08/24 18:59 06:59 18:59 Intake Total 300 900 Output Total 1500 Balance 300 -600 Weight 96.162 kg Intake: IV 300 Hemodialysis 900 Output: Hemodialysis 1200 Hemodialysis Net Amount 300 Other: Voiding Method Toilet # Voids 3 - Exam patient is awake, comfortable. Alert oriented times. Examination of the heart S1 and S2 Examination of the lungs bilateral breath sounds are heard Abdomen is soft nontender Examination of lower extremities shows no evidence of edema - Labs CBC & Chem 7: 02/07/24 08:49 02/07/24 08:49 Assessment and Plan Assessment: 1. End-stage renal disease on hemodialysis on Tuesday schedule. 2. Thrombosed right forearm AV graft, status post fistulogram and thrombectomy 3. Hypertension with CK D stage IV 4. Hyperkalemia associated with end-stage renal disease Plan: stable for discharge from nephrology standpoint.
== END 2024-02-08 12:13 | disposition home or self-care (01) ==
LOC: EC 08:21 → 5NMEDONC 09:19
PROVIDERS: ADMIT Student in an Organized Health Care Education/Training Program; ATTEND Student in an Organized Health Care Education/Training Program
DX: T82.868A Thrombosis due to vascular prosthetic devices, implants and grafts, initial encounter (principal); Y83.2 Surgical operation with anastomosis, bypass or graft as the cause of abnormal reaction of the patient, or of later complication, without mention of misadventure at the time of the procedure; I12.0 Hypertensive chronic kidney disease with stage 5 chronic kidney disease or end stage renal disease; N18.6 End stage renal disease; E87.5 Hyperkalemia; R00.1 Bradycardia, unspecified; D63.1 Anemia in chronic kidney disease; E03.9 Hypothyroidism, unspecified; N40.0 Benign prostatic hyperplasia without lower urinary tract symptoms; F03.90 Unspecified dementia, unspecified severity, without behavioral disturbance, psychotic disturbance, mood disturbance, and anxiety; H40.9 Unspecified glaucoma; E78.5 Hyperlipidemia, unspecified; Z99.2 Dependence on renal dialysis; Z79.890 Hormone replacement therapy; Z79.899 Other long term (current) drug therapy
CPT/HCPCS: 90935; 96372; 99285; 36415; 76937; 36905; 80053; 83735; 84100; 85025; 85610; 85730; G0378 ×2; C1894; C1769 ×2; C1725; C1757; J2250; J1644 ×2; J2003; J3010; J2997

== ENCOUNTER 2024-02-14 10:04 | Observation (INO) | payer MEDICARE ==
--- NOTE | 2024-02-14 11:07 | ED ---
General Adult HPI - General Chief complaint: Recheck/Abnormal Lab/Rx Stated complaint: R arm clot issues Time Seen by Provider: 02/14/24 10:12 Source: patient, RN notes reviewed Mode of arrival: ambulatory Limitations: no limitations - History of Present Illness Initial comments: Patient is a 78-year-old male present to the emergency department with problems with his dialysis fistula. Patient had similar issues last week and this was cleaned out by vascular. Last dialysis was Tuesday. Patient went today and they were unable to perform dialysis. Patient otherwise feels fine and has no complaints. - Related Data Home Medications Medication Instructions Recorded Confirmed Brinzolamide/Brimonidine Tart 1 drop BOTH EYES BID 04/20/17 02/14/24 [Simbrinza 1%-0.2% Eye Drops] Latanoprost Ophth [Xalatan 0.005%] 1 drop BOTH EYES HS 04/20/17 02/14/24 Simvastatin [Zocor] 20 mg PO HS 04/20/17 02/14/24 Tamsulosin HCl [Flomax] 0.4 mg PO DAILY 04/20/17 02/14/24 Calcium Acetate [PhosLo] 667 mg PO AC-TID 02/07/24 02/14/24 Levothyroxine Sodium [Synthroid] 137 mcg PO DAILY 02/07/24 02/14/24 lisinopriL [Zestril] 10 mg PO SUMOWEFR 02/07/24 02/14/24 Aspirin EC [Ecotrin Low Dose] 81 mg PO HS 02/14/24 02/14/24 Allergies Allergy/AdvReac Type Severity Reaction Status Date / Time No Known Allergies Allergy Verified 02/14/24 11:54 Review of Systems ROS Statement: Those systems with pertinent positive or pertinent negative responses have been documented in the HPI. ROS Other: All systems not noted in ROS Statement are negative. Constitutional: Denies: fever Eyes: Denies: eye pain ENT: Denies: ear pain Respiratory: Denies: cough, dyspnea Cardiovascular: Denies: chest pain Endocrine: Denies: fatigue Gastrointestinal: Denies: abdominal pain Past Medical History Past Medical History: Eye Disorder, Hyperlipidemia, Hypertension, Renal Disease, Thyroid Disorder Additional Past Medical History / Comment(s): glaucoma julio eyes,myasthenia gravis, dialysis Tue, Thurs, Sat, History of Any Multi-Drug Resistant Organisms: None Reported Additional Past Surgical History / Comment(s): thymus gland removed 1988. d ialysis graft right arm Past Anesthesia/Blood Transfusion Reactions: No Reported Reaction Past Psychological History: No Psychological Hx Reported Smoking Status: Never smoker Past Alcohol Use History: None Reported Past Drug Use History: None Reported - Past Family History Mother Family Medical History: Cancer Additional Family Medical History / Comment(s): lung General Exam Limitations: no limitations General appearance: alert, in no apparent distress Head exam: Present: normocephalic Eye exam: Present: normal appearance Neck exam: Present: normal inspection Respiratory exam: Present: normal lung sounds bilaterally Cardiovascular Exam: Present: regular rate, normal rhythm GI/Abdominal exam: Present: soft. Absent: tenderness Extremities exam: Present: other (Right arm fistula without thrill) Neurological exam: Present: alert Psychiatric exam: Present: normal affect, normal mood Skin exam: Present: normal color Course Vital Signs 02/14/24 10:09 Temperature 97.6 F Pulse Rate 55 L Respiratory 18 Rate Blood Pressure 134/72 O2 Sat by Pulse 99 Oximetry EKG Findings - EKG Results: EKG: interpreted by ERMD, sinus rhythm, normal axis, normal QRS, normal ST/T EKG shows: bradycardia Medical Decision Making - Medical Decision Making Was pt. sent in by a medical professional or institution (JOSEE Villalobos, GIFTS OFFICER, urgent care, hospital, or care home...) When possible be specific @ -Patient was sent by dialysis Did you speak to anyone other than the patient for history (EMS, parent, family, police, friend...)? What history was obtained from this source @ -No Did you review nursing and triage notes (agree or disagree)? Why? @ -I reviewed and agree with nursing and triage notes Were old charts reviewed (outside hosp., previous admission, EMS record, old EKG, old radiological studies, urgent care reports/EKG's, care home records)? Report findings @ -Previous admission reviewed including previous surgical notes for graft placement Differential Diagnosis (chest pain, altered mental status, abdominal pain women, abdominal pain men, vaginal bleeding, weakness, fever, dyspnea, syncope, headache, dizziness, GI bleed, back pain, seizure, CVA, palpatations, mental health, musculoskeletal)? @ -Differential Weakness: Hypoglycemia, shock, sepsis, hyponatremia, anemia, infection, [place], ETOH, adverse medicine reaction, overdose, stroke, this is not meant to be an all-inclusive list. EKG interpreted by me (3pts min.). @ -As above X-rays interpreted by me (1pt min.). @ -None done CT interpreted by me (1pt min.). @ -None done U/S interpreted by me (1pt. min.). @ -None done What testing was considered but not performed or refused? (CT, X-rays, U/S, labs)? Why? @ -None What meds were considered but not given or refused? Why? @ -None Did you discuss the management of the patient with other professionals (professionals i.e. Dr., PA, GIFTS OFFICER, lab, RT, psych nurse, social media content manager, personal computer network analyst, teacher, personal banking officer, housing case manager)? Give summary @ -Case was discussed with Dr. Talavera as well as practitioner Meredith Alvarez. Patient will be admitted and kept n.p.o. Unclear when procedure will be done. Case also discussed with Dr. Washington who will admit covering hospital call Was smoking cessation discussed for >3mins.? @ -No Was critical care preformed (if so, how long)? @ -No Were there social determinants of health that impacted care today? How? (Homelessness, low income, unemployed, alcoholism, drug addiction, transportation, low edu. Level, literacy, decrease access to med. care, skilled nursing, rehab)? @ -No Was there de-escalation of care discussed even if they declined (Discuss DNR or withdrawal of care, Hospice)? DNR status @ -No What co-morbidities impacted this encounter? (DM, HTN, Smoking, COPD, CAD, Cancer, CVA, ARF, Chemo, Hep., AIDS, mental health diagnosis, sleep apnea, morbid obesity)? @ -End-stage renal disease on hemodialysis Was patient admitted / discharged? Hospital course, mention meds given and route, prescriptions, significant lab abnormalities, going to OR and other pertinent info. @ -Patient presents with clotted graft. Patient will be admitted with vascular consult. Nephrology consult will also be placed. Admission orders written. Patient updated. Undiagnosed new problem with uncertain prognosis? @ -No Drug Therapy requiring intensive monitoring for toxicity (Heparin, Nitro, Insulin, Cardizem)? @ -No Were any procedures done? @ -No Diagnosis/symptom? @ -AV graft malfunction Acute, or Chronic, or Acute on Chronic? @ -Acute Uncomplicated (without systemic symptoms) or Complicated (systemic symptoms)? @ -Default Side effects of treatment? @ -No Exacerbation, Progression, or Severe Exacerbation? @ -No Poses a threat to life or bodily function? How? (Chest pain, [place], [place], pneumonia, PE, COPD, DKA, ARF, appy, cholecystitis, CVA, Diverticulitis, Homicidal, Suicidal, threat to staff... and all critical care pts) @ -Threat to inability to have dialysis with renal impairment. - Lab Data Result diagrams: 02/14/24 11:02/14/24 11: Lab Results 02/14/24 02/14/24 02/14/24 Range/Units 11: 11: 11: WBC 3.5 L (3.8-10.6) k/uL RBC 3.45 L (4.30-5.90) m/uL Hgb 10.0 L D (13.0-17.5) gm/dL Hct 30.9 L (39.0-53.0) % MCV 89.5 (80.0-100.0) fL MCH 29.0 (25.0-35.0) pg MCHC 32.5 (31.0-37.0) g/dL RDW 16.1 H (11.5-15.5) % Plt Count 127 L (150-450) k/uL MPV 7.7 Neutrophils % 55 % Lymphocytes % 28 % Monocytes % 10 % Eosinophils % 3 % Basophils % 1 % Neutrophils # 1.9 (1.3-7.7) k/uL Lymphocytes # 1.0 (1.0-4.8) k/uL Monocytes # 0.4 (0-1.0) k/uL Eosinophils # 0.1 (0-0.7) k/uL Basophils # 0.0 (0-0.2) k/uL Hypochromasia Slight Anisocytosis Slight PT 11.0 (10.0-12.5) sec INR 1.0 (<1.2) APTT 25.4 (22.0-30.0) sec Sodium 143 (137-145) mmol/L Potassium 4.4 (3.5-5.1) mmol/L Chloride 107 (98-107) mmol/L Carbon Dioxide 30 (22-30) mmol/L Anion Gap 6 mmol/L BUN 66 H (9-20) mg/dL Creatinine 9.57 H* (0.66-1.25) mg/dL Est GFR (CKD-EPI)AfAm 5 (>60 ml/min/1.73 sqM) Est GFR (CKD-EPI)NonAf 5 (>60 ml/min/1.73 sqM) Glucose 85 (74-99) mg/dL Calcium 7.1 L (8.4-10.2) mg/dL Phosphorus 5.3 H (2.5-4.5) mg/dL Magnesium 2.3 (1.6-2.3) mg/dL Total Bilirubin 0.3 (0.2-1.3) mg/dL AST 21 (17-59) U/L ALT 13 (4-49) U/L Alkaline Phosphatase 66 (38-126) U/L Total Protein 6.7 (6.3-8.2) g/dL Albumin 3.3 L (3.5-5.0) g/dL Disposition Clinical Impression: Complication of AV dialysis fistula, ESRD (end stage renal disease) Disposition: ADMITTED IP TO THIS HOSP Is patient prescribed a controlled substance at d/c from ED?: No Referrals: Vasquez Morton MD [Primary Care Provider] - 1-2 days Time of Disposition: 13:14
[2024-02-14 11:56] LABS: Anisocytosis Slight; Basophils % (A) 1 %; Eosinophils # (A) 0.1 k/uL (0-0.7); Eosinophils % (A) 3 %; HCT 30.9 % (39.0-53.0); Hypochromasia Slight; Lymphocytes % (A) 28 %; MCHC 32.5 g/dL (31.0-37.0); MCV 89.5 fL (80.0-100.0); Mean Platelet Volume 7.7; Monocytes # (A) 0.4 k/uL (0-1.0); Monocytes % (A) 10 %; Neutrophils # (A) 1.9 k/uL (1.3-7.7); Neutrophils % (A) 55 %; Platelet Count 127 k/uL (150-450); RBC 3.45 m/uL (4.30-5.90); RDW 16.1 % (11.5-15.5); WBC 3.5 k/uL (3.8-10.6)
[2024-02-14 12:10] LABS: ALT 13 U/L (4-49); AST 21 U/L (17-59); African American GFR (CKD) 5 (>60 ml/min/1.73 sqM); Albumin 3.3 g/dL (3.5-5.0); Alkaline Phosphatase 66 U/L (38-126); Anion Gap 6 mmol/L; Blood Urea Nitrogen 66 mg/dL (9-20); Calcium 7.1 mg/dL (8.4-10.2); Carbon Dioxide 30 mmol/L (22-30); Chloride 107 mmol/L (98-107); Glucose 85 mg/dL (74-99); Magnesium 2.3 mg/dL (1.6-2.3); Non-African American GFR(CKD) 5 (>60 ml/min/1.73 sqM); Phosphorus 5.3 mg/dL (2.5-4.5); Potassium 4.4 mmol/L (3.5-5.1); Sodium 143 mmol/L (137-145); Total Bilirubin 0.3 mg/dL (0.2-1.3); Total Protein 6.7 g/dL (6.3-8.2)
[2024-02-14 12:23] LABS: Partial Thromboplastin Time 25.4 sec (22.0-30.0)
--- NOTE | 2024-02-14 12:56 | P.GSCN ---
History of Present Illness Consult date: 02/14/24 Reason for Consult: Malfunctioning AV graft Requesting physician: Rafi Lema History of present illness: This a pleasant 78-year-old -Citizen Of [place] male end-stage renal disease on hemodialysis who presented to the emergency department after he went to dialysis this morning and they were unable to access his AV graft. He gets dialysis Saturdays. Last dialysis was on Tuesday without any complica tions according to the patient. He has a right upper extremity brachial AV graft that was placed in August [address] Bone. He was recently hospitalized and seen by vascular surgery on 02/07/2024 for malfunctioning AV graft and underwent right upper extremity fistulogram with percutaneous thrombectomy and balloon angioplasty with Dr Rosales. He had dialysis following that without any complications. Sodium 143 potassium 4.4 BUN 66 creatinine 9.5 magnesium 2.3. He denies any pain in his right upper extremity. No shortness of breath or chest pain. No nausea or vomiting. Review of Systems A 14 point review systems was completed all pertinent positives and negatives as stated in the HPI. Past Medical History Past Medical History: Eye Disorder, Hyperlipidemia, Hypertension, Renal Disease, Thyroid Disorder Additional Past Medical History / Comment(s): glaucoma julio eyes,myasthenia gravis, dialysis Tue, , Tue, History of Any Multi-Drug Resistant Organisms: None Reported Additional Past Surgical History / Comment(s): thymus gland removed 1988. dialysis graft right arm Past Anesthesia/Blood Transfusion Reactions: No Reported Reaction Past Psychological History: No Psychological Hx Reported Smoking Status: Never smoker Past Alcohol Use History: None Reported Past Drug Use History: None Reported - Past Family History Mother Family Medical History: Cancer Additional Family Medical History / Comment(s): lung Medications and Allergies Home Medications Medication Instructions Recorded Confirmed Type Brinzolamide/Brimonidine Tart 1 drop BOTH EYES BID 04/20/17 02/14/24 History [Simbrinza 1%-0.2% Eye Drops] Latanoprost Ophth [Xalatan 0.005%] 1 drop BOTH EYES HS 04/20/17 02/14/24 History Simvastatin [Zocor] 20 mg PO HS 04/20/17 02/14/24 History Tamsulosin HCl [Flomax] 0.4 mg PO DAILY 04/20/17 02/14/24 History Calcium Acetate [PhosLo] 667 mg PO AC-TID 02/07/24 02/14/24 History Levothyroxine Sodium [Synthroid] 137 mcg PO DAILY 02/07/24 02/14/24 History lisinopriL [Zestril] 10 mg PO SUMOWEFR 02/07/24 02/14/24 History Aspirin EC [Ecotrin Low Dose] 81 mg PO HS 02/14/24 02/14/24 History Allergies Allergy/AdvReac Type Severity Reaction Status Date / Time No Known Allergies Allergy Verified 02/14/24 11:54 Surgical - Exam Vital Signs Temp Pulse Resp BP Pulse Ox 97.6 F 55 L 18 134/72 99 02/14/24 10:09 02/14/24 10:09 02/14/24 10:09 02/14/24 10:09 02/14/24 10:09 General appearance: The patient is alert, oriented, appears in no acute distress. HET: Head is normocephalic and atraumatic. Pupils are equal and reactive. Neck: Supple. Heart: Regular. Lungs: Equal expansion, normal respiratory effort. Abdomen: Soft, nontender, nondistended. Extremities: Normal skin color and turgor. Nonpalpable thrill and no audible bruit right upper extremity loop graft. Neurological: No focal deficits. Strength and sensation are grossly intact. Results - Labs 02/14/24 11:29 02/14/24 11:29 Abnormal Lab Results - Last 24 Hours (Table) 02/14/24 02/14/24 Range/Units 11:29 11:29 WBC 3.5 L (3.8-10.6) k/uL RBC 3.45 L (4.30-5.90) m/uL Hgb 10.0 L D (13.0-17.5) gm/dL Hct 30.9 L (39.0-53.0) % RDW 16.1 H (11.5-15.5) % Plt Count 127 L (150-450) k/uL BUN 66 H (9-20) mg/dL Creatinine 9.57 H* (0.66-1.25) mg/dL Calcium 7.1 L (8.4-10.2) mg/dL Phosphorus 5.3 H (2.5-4.5) mg/dL Albumin 3.3 L (3.5-5.0) g/dL Diabetes panel 02/14/24 Range/Units 11:29 Sodium 143 (137-145) mmol/L Potassium 4.4 (3.5-5.1) mmol/L Chloride 107 (98-107) mmol/L Carbon Dioxide 30 (22-30) mmol/L BUN 66 H (9-20) mg/dL Creatinine 9.57 H* (0.66-1.25) mg/dL Glucose 85 (74-99) mg/dL Calcium 7.1 L (8.4-10.2) mg/dL AST 21 (17-59) U/L ALT 13 (4-49) U/L Alkaline Phosphatase 66 (38-126) U/L Total Protein 6.7 (6.3-8.2) g/dL Albumin 3.3 L (3.5-5.0) g/dL Calcium panel 02/14/24 Range/Units 11:29 Calcium 7.1 L (8.4-10.2) mg/dL Phosphorus 5.3 H (2.5-4.5) mg/dL Albumin 3.3 L (3.5-5.0) g/dL Pituitary panel 02/14/24 Range/Units 11:29 Sodium 143 (137-145) mmol/L Potassium 4.4 (3.5-5.1) mmol/L Chloride 107 (98-107) mmol/L Carbon Dioxide 30 (22-30) mmol/L BUN 66 H (9-20) mg/dL Creatinine 9.57 H* (0.66-1.25) mg/dL Glucose 85 (74-99) mg/dL Calcium 7.1 L (8.4-10.2) mg/dL Adrenal panel 02/14/24 Range/Units 11:29 Sodium 143 (137-145) mmol/L Potassium 4.4 (3.5-5.1) mmol/L Chloride 107 (98-107) mmol/L Carbon Dioxide 30 (22-30) mmol/L BUN 66 H (9-20) mg/dL Creatinine 9.57 H* (0.66-1.25) mg/dL Glucose 85 (74-99) mg/dL Calcium 7.1 L (8.4-10.2) mg/dL Total Bilirubin 0.3 (0.2-1.3) mg/dL AST 21 (17-59) U/L ALT 13 (4-49) U/L Alkaline Phosphatase 66 (38-126) U/L Total Protein 6.7 (6.3-8.2) g/dL Albumin 3.3 L (3.5-5.0) g/dL Assessment and Plan Assessment: 1. Malfunctioning right upper extremity AV graft 2. End-stage renal disease on hemodialysis Plan: 1. Patient may have renal diet, n.p.o. after midnight 2. Will schedule patient for right upper extremity thrombectomy, possible tunneled catheter placement 3. Hemodialysis per recommendations from nephrology 4. Rest of medical management per primary medical team Thank you for this consultation, we will continue to follow. The impression and plan of care has been dictated as directed. I performed a history and examination of this patient, discussed the same with the dictator. I agree with the dictator's note ,documented as a scribe. Any additional findings or plans will be noted.
[2024-02-14] MEDS ORDERED: NALOXONE 0.4 MG/ML 1 ML VIAL IV PRN (13:14)
[2024-02-14] MEDS: CALCIUM ACETATE 667 MG TAB PO SCH (17:53)
--- NOTE | 2024-02-14 17:56 | P.HPIM ---
History of Present Illness H&P Date: 02/14/24 78 year old M with PMH of ESRD on HD TTS, Glaucoma, HTN, Hypothyroid, BPH, HLD, Dementia presents to the ED after going to HD today and staff was unable to access his AV graft. He reports no complaints otherwise. In the ED he underwent extensive evaluation. BP 134/72, HR 55, T 97.6F, RR 18, 99% on RA. CBC, Coag panel, CMP significant for WBC 3.5, RBC 3.45, Hg 10, Hct 30.9, Plt 127, BUN 66, Cr 9.57, Ca 7.1. Phos 5.3. Mag 2.3. EKG sinus bradycardia with first degree AV block. Patient is admitted for further workup and management. General: non toxic, no distress, appears at stated age Derm: warm, dry Head: atraumatic, normocephalic, symmetric Eyes: EOMI, no lid lag, anicteric sclera Mouth: no lip lesion, mucus membranes moist Cardiovascular: S1S2 sirisha, no murmur Lungs: Decreased BS bilateral, no rhonchi, no rales, no accessory muscle use Ext: no gross muscle atrophy, no edema, no contractures, RUE fistula Neuro: no focal neuro deficits Psych: Alert, oriented, appropriate affect Based on my assessment of this patient, this patient meets a moderate complexity level of care. Malfunctioning AV graft: Vascular surgery for RUE fistulogram with possible intervention. ESRD: Nephrology consulted for HD. Hyperkalemia: Mild elevation due to ESRD. Normocytic anemia likely AOCD from renal failure. Glaucoma: Latanoprost and Brimonidine eye drops. HTN: Lisinopril 10 mg PO QD. Hypothyroid: Synthroid 137 mcg PO QD. BPH: Flomax 0.4 mg PO QD. HLD: Lipitor 10 mg PO QHS. CODE STATUS: FULL CODE DVT Prophylaxis: Heparin SQ GI Prophylaxis: Designated medical POA if patient is not able to make medical decisions for themselves: I have reviewed the following unix consultant notes: Vascular, ER provider. I have reviewed the results of the following tests: As above. I have ordered the following tests: I have discussed the care of this patient with the following independent historian: I have independently interpreted the following test below: Past Medical History Past Medical History: Eye Disorder, Hyperlipidemia, Hypertension, Renal Disease, Thyroid Disorder Additional Past Medical History / Comment(s): glaucoma julio eyes,myasthenia gravis, dialysis Tu//Sat History of Any Multi-Drug Resistant Organisms: None Reported Additional Past Surgical History / Comment(s): thymus gland removed 1988; AV fistula right upper extremity Past Anesthesia/Blood Transfusion Reactions: No Reported Reaction Past Psychological History: No Psychological Hx Reported Smoking Status: Never smoker Past Alcohol Use History: None Reported Past Drug Use History: None Reported - Past Family History Mother Family Medical History: Cancer Additional Family Medical History / Comment(s): lung Medications and Allergies Home Medications Medication Instructions Recorded Confirmed Type Brinzolamide/Brimonidine Tart 1 drop BOTH EYES BID 04/20/17 02/14/24 History [Simbrinza 1%-0.2% Eye Drops] Latanoprost Ophth [Xalatan 0.005%] 1 drop BOTH EYES HS 04/20/17 02/14/24 History Simvastatin [Zocor] 20 mg PO HS 04/20/17 02/14/24 History Tamsulosin HCl [Flomax] 0.4 mg PO DAILY 04/20/17 02/14/24 History Calcium Acetate [PhosLo] 667 mg PO AC-TID 02/07/24 02/14/24 History Levothyroxine Sodium [Synthroid] 137 mcg PO DAILY 02/07/24 02/14/24 History lisinopriL [Zestril] 10 mg PO SUMOWEFR 02/07/24 02/14/24 History Aspirin EC [Ecotrin Low Dose] 81 mg PO HS 02/14/24 02/14/24 History Allergies Allergy/AdvReac Type Severity Reaction Status Date / Time No Known Allergies Allergy Verified 02/14/24 11:54 Physical Exam Vitals: Vital Signs Temp Pulse Pulse Resp BP BP Pulse Ox 02/14/24 15:00 97.5 F L 41 L 16 186/69 100 02/14/24 14:45 97.5 F L 44 L 16 154/74 100 02/14/24 10:09 97.6 F 55 L 18 134/72 99 Intake and Output 02/14/24 02/14/24 02/14/24 06:59 14:59 22:59 Other: Voiding Method Toilet Weight 96.162 kg 96.162 kg Results CBC & Chem 7: 02/14/24 11:29 02/14/24 11:29 Labs: Abnormal Lab Results - Last 24 Hours (Table) 02/14/24 02/14/24 Range/Units 11:29 11:29 WBC 3.5 L (3.8-10.6) k/uL RBC 3.45 L (4.30-5.90) m/uL Hgb 10.0 L D (13.0-17.5) gm/dL Hct 30.9 L (39.0-53.0) % RDW 16.1 H (11.5-15.5) % Plt Count 127 L (150-450) k/uL BUN 66 H (9-20) mg/dL Creatinine 9.57 H* (0.66-1.25) mg/dL Calcium 7.1 L (8.4-10.2) mg/dL Phosphorus 5.3 H (2.5-4.5) mg/dL Albumin 3.3 L (3.5-5.0) g/dL Thrombosis Risk Factor Assmnt - Choose All That Apply Any of the Below Risk Factors Present?: Yes Each Factor Represents 1 point: Obesity (BMI >25) Other Risk Factors: Yes Each Risk Factor Represents 3 Points: Age 75 years or older Thrombosis Risk Factor Assessment Total Risk Factor Score: 4 Thrombosis Risk Factor Assessment Level: Moderate Risk
[2024-02-14] MEDS: ATORVASTATIN 10 MG TAB PO SCH (20:02)
[2024-02-14] MEDS: ASPIRIN 81 MG PO SCH (20:02)
[2024-02-14] MEDS: HEPARIN SODIUM,PORCINE 5,000 UNIT/ML 1 ML VIAL SQ SCH (20:03)
[2024-02-14] MEDS: DORZOLAMIDE HCL 2% DROPS 10 ML BTL BOTH EYES SCH (20:03)
[2024-02-14] MEDS: LATANOPROST 0.005% OPHTH DROPS 2.5 ML BTL BOTH EYES SCH (21:03)
[2024-02-15] MEDS: TAMSULOSIN 0.4 MG CAP.ER.24H PO SCH (08:51)
[2024-02-15] MEDS: LEVOTHYROXINE 137 MCG TAB PO SCH (08:51)
--- NOTE | 2024-02-15 11:29 | P.NPCON ---
History of Present Illness - Reason for Consult end stage renal disease - History of Present Illness Reason for consultation: End-stage renal disease History of present illness: Patient is a 78-year-old male seen in renal consultation for end-stage renal disease. He is maintained on hemodialysis on Tuesday schedule. Last hemodialysis was on Tuesday. [facility] both sent to the hospital due to malfunctioning AV graft. Patient states he recently underwent intervention for his access last week and is now clotted again. He denies history of diabetes or coronary artery disease. He does make some urine. No vomiting or diarrhea. No fever or chills. No edema. Vital signs are stable. General: No acute distress. HEENT: Head exam is unremarkable. LUNGS: No audible rhonchi or wheezes. HEART: Rate and Rhythm are regular. ABDOMEN: Nontender. EXTREMITITES: No edema. Past Medical History Past Medical History: Eye Disorder, Hyperlipidemia, Hypertension, Renal Disease, Thyroid Disorder Additional Past Medical History / Comment(s): glaucoma julio eyes,myasthenia gravis, dialysis //Tue History of Any Multi-Drug Resistant Organisms: None Reported Additional Past Surgical History / Comment(s): thymus gland removed 1988; AV fistula right upper extremity Past Anesthesia/Blood Transfusion Reactions: No Reported Reaction Past Psychological History: No Psychological Hx Reported Smoking Status: Never smoker Past Alcohol Use History: None Reported Past Drug Use History: None Reported - Past Family History Mother Family Medical History: Cancer Additional Family Medical History / Comment(s): lung Medications and Allergies Home Medications Medication Instructions Recorded Confirmed Type Brinzolamide/Brimonidine Tart 1 drop BOTH EYES BID 04/20/17 02/14/24 History [Simbrinza 1%-0.2% Eye Drops] Latanoprost Ophth [Xalatan 0.005%] 1 drop BOTH EYES HS 04/20/17 02/14/24 History Simvastatin [Zocor] 20 mg PO HS 04/20/17 02/14/24 History Tamsulosin HCl [Flomax] 0.4 mg PO DAILY 04/20/17 02/14/24 History Calcium Acetate [PhosLo] 667 mg PO AC-TID 02/07/24 02/14/24 History Levothyroxine Sodium [Synthroid] 137 mcg PO DAILY 02/07/24 02/14/24 History lisinopriL [Zestril] 10 mg PO SUMOWEFR 02/07/24 02/14/24 History Aspirin EC [Ecotrin Low Dose] 81 mg PO HS 02/14/24 02/14/24 History Allergies Allergy/AdvReac Type Severity Reaction Status Date / Time No Known Allergies Allergy Verified 02/14/24 11:54 Physical Exam Vitals: Vital Signs Temp Pulse Pulse Resp BP BP Pulse Ox 02/15/24 07:00 98.2 F 46 L 16 167/76 100 02/15/24 01:59 98.1 F 44 L 16 175/74 100 02/14/24 19:34 97.5 F L 51 L 16 137/67 100 02/14/24 15:00 97.5 F L 41 L 16 186/69 100 02/14/24 14:45 97.5 F L 44 L 16 154/74 100 Intake and Output 02/14/24 02/15/24 02/15/24 22:59 06:59 14:59 Intake Total 118 Balance 118 Intake: Oral 118 Other: Voiding Method Toilet Toilet Toilet # Voids 0 2 Weight 96.162 kg Results - Lab Results Most recent lab results Calcium 7.1 mg/dL (8.4-10.2) L 02/14/24 11:29 Phosphorus 5.3 mg/dL (2.5-4.5) H 02/14/24 11: Magnesium 2.3 mg/dL (1.6-2.3) 02/14/24 11:29 02/14/24 11:29 02/14/24 11:29 Assessment and Plan Plan: Assessment: 1. End-stage renal disease maintained on hemodialysis on Tuesday schedule. 2. Malfunctioning right upper extremity AV graft. 3. Hypertension with chronic kidney disease. 4. Chronic kidney disease mineral bone disease maintained on PhosLo. 5. Anemia of chronic kidney disease. Plan: Hemodialysis today after vascular intervention. Another treatment tomorrow per his outpatient schedule. Check iron studies. Add as needed hydralazine. Thank you for the consultation. I will continue to follow the patient with you during his hospital stay.
--- NOTE | 2024-02-15 13:40 | P.PN ---
Subjective Progress Note Date: 02/15/24 78 year old M with PMH of ESRD on HD TTS, Glaucoma, HTN, Hypothyroid, BPH, HLD, Dementia presents to the ED after going to HD today and staff was unable to access his AV graft. He reports no complaints otherwise. In the ED he underwent extensive evaluation. BP 134/72, HR 55, T 97.6F, RR 18, 99% on RA. CBC, Coag panel, CMP significant for WBC 3.5, RBC 3.45, Hg 10, Hct 30.9, Plt 127, BUN 66, Cr 9.57, Ca 7.1. Phos 5.3. Mag 2.3. EKG sinus bradycardia with first degree AV block. Patient is admitted for further workup and management. 02/14 Patient was seen and examined. Plans for RUE fistulogram with possible intervention today. General: non toxic, no distress, appears at stated age Derm: warm, dry Head: atraumatic, normocephalic, symmetric Eyes: EOMI, no lid lag, anicteric sclera Mouth: no lip lesion, mucus membranes moist Cardiovascular: S1S2 sirisha, no murmur Lungs: Decreased BS bilateral, no rhonchi, no rales, no accessory muscle use Ext: no gross muscle atrophy, no edema, no contractures, RUE fistula Neuro: no focal neuro deficits Psych: Alert, oriented, appropriate affect Based on my assessment of this patient, this patient meets a moderate complexity level of care. Malfunctioning AV graft: Vascular surgery for RUE fistulogram with possible intervention. ESRD: Nephrology consulted for HD. Hyperkalemia: Mild elevation due to ESRD. Normocytic anemia likely AOCD from renal failure. Glaucoma: Latanoprost and Brimonidine eye drops. HTN: Lisinopril 10 mg PO QD. Hypothyroid: Synthroid 137 mcg PO QD. BPH: Flomax 0.4 mg PO QD. HLD: Lipitor 10 mg PO QHS. CODE STATUS: FULL CODE DVT Prophylaxis: Heparin SQ GI Prophylaxis: Designated medical POA if patient is not able to make medical decisions for themselves: Possible discharge later on if able to have a successful HD session. I have reviewed the following client insights consultant notes: Vascular, Nephro provider. I have reviewed the results of the following tests: I have ordered the following tests: I have discussed the care of this patient with the following independent historian: RN. I have independently interpreted the following test below: Objective - Vital Signs Vital signs: Vital Signs Temp 98.2 F 02/15/24 07:00 Pulse 46 L 02/15/24 07:00 Resp 16 02/15/24 07:00 BP 167/76 02/15/24 07:00 Pulse Ox 100 02/15/24 07:00 FiO2 Intake & Output 02/14/24 02/15/24 02/15/24 18:59 06:59 18:59 Intake Total 118 Balance 118 Weight 96.162 kg Intake: Oral 118 Other: Voiding Method Toilet Toilet # Voids 2 - Labs CBC & Chem 7: 02/14/24 11:29 02/14/24 11:29 Labs: Abnormal Lab Results - Last 24 Hours (Table) 02/14/24 02/14/24 Range/Units 11:29 11:29 WBC 3.5 L (3.8-10.6) k/uL RBC 3.45 L (4.30-5.90) m/uL Hgb 10.0 L D (13.0-17.5) gm/dL Hct 30.9 L (39.0-53.0) % RDW 16.1 H (11.5-15.5) % Plt Count 127 L (150-450) k/uL BUN 66 H (9-20) mg/dL Creatinine 9.57 H* (0.66-1.25) mg/dL Calcium 7.1 L (8.4-10.2) mg/dL Phosphorus 5.3 H (2.5-4.5) mg/dL Albumin 3.3 L (3.5-5.0) g/dL
[2024-02-15] MEDS: IV FLUID CONTINUATION 1,000 ML IV ONE (13:51)
[2024-02-15] MEDS: lisinopriL 10 MG TAB PO SCH (13:51)
[2024-02-15] MEDS: ONDANSETRON 4 MG/2 ML VIAL IVP STA (14:16)
[2024-02-15] MEDS: DEXAMETHASONE SOD PHOSPHATE 4 MG/ML 1 ML VIAL IVP STA (14:17)
[2024-02-15] MEDS: LACTATED RINGERS 1,000 ML BAG IV STA (14:20)
[2024-02-15] MEDS: LIDOCAINE 1% INJ 10MG/ML (20 ML MDV) SQ ONE ×3 (14:33→15:08)
[2024-02-15] MEDS ORDERED: PROPOFOL 10 MG/ML 20 ML VIAL IV ONE (14:48)
[2024-02-15] MEDS ORDERED: KETAMINE HCL IN 0.9 % NACL 50 MG/5 ML SYRINGE ONE (14:48)
[2024-02-15] MEDS ORDERED: PHENYLEPHRINE-0.9% NACL SYG 1,000 MCG/10 ML SYRINGE ONE (14:48)
[2024-02-15] MEDS ORDERED: fentaNYL (PF) 50 MCG/ML 2 ML AMP ONE (14:48)
[2024-02-15] MEDS ORDERED: GLYCOPYRROLATE 0.2 MG/ML 2 ML VIAL ONE (14:48)
[2024-02-15] MEDS ORDERED: MIDAZOLAM 2 MG/2 ML VIAL ONE (14:48)
[2024-02-15] MEDS ORDERED: LIDOCAINE 1% INJ 10MG/ML (20 ML MDV) ONE (14:48)
[2024-02-15] MEDS ORDERED: ceFAZolin 1 GM/50 ML BAG (PMX) ONE (14:48)
[2024-02-15] MEDS: SODIUM CHLORIDE 0.9% 100 ML with ceFAZolin 2,000 MG IV ONE (15:12)
[2024-02-15] MEDS: ceFAZolin 2 GM in SODIUM CHLORIDE 0.9% 500 ML 500 ML IRRIGATION ONE (15:12)
[2024-02-15] MEDS: SODIUM CHLORIDE 0.9% 500 ML 500 ML with HEPARIN SODIUM,PORCINE (1 ML) 5,000 UNIT IV ONE (15:13)
[2024-02-15 15:14] LABS: % Iron Saturation 22.17 (15.00-50.00)
[2024-02-15] MEDS: hydrALAZINE HCL 20 MG/ML 1 ML VIAL IVP PRN (16:30)
--- NOTE | 2024-02-15 16:59 | P.DS ---
Providers Date of admission: 02/14/24 13:15 Expected date of discharge: 02/15/24 Attending physician: Imer Espinoza MD Consults: 02/14/24 13:14 Consult Physician Routine Consulting Provider: Jarvis Rosales Consult Reason/Comments: graft malfunction Do you want consulting provider notified?: Already Contacted Consult Physician Routine Consulting Provider: Yasmani Christian Consult Reason/Comments: esrd on hd Do you want consulting provider notified?: Yes Primary care physician: Vasquez Morton MD Hospital Course: 78 year old M with PMH of ESRD on HD TTS, Glaucoma, HTN, Hypothyroid, BPH, HLD, Dementia presents to the ED after going to HD today and staff was unable to access his AV graft. He reports no complaints otherwise. In the ED he underwent extensive evaluation. BP 134/72, HR 55, T 97.6F, RR 18, 99% on RA. CBC, Coag panel, CMP significant for WBC 3.5, RBC 3.45, Hg 10, Hct 30.9, Plt 127, BUN 66, Cr 9.57, Ca 7.1. Phos 5.3. Mag 2.3. EKG sinus bradycardia with first degree AV block. Patient is admitted for further workup and management. 02/14 Patient was seen and examined. Underwent RUE fistulogram with thrombectomy today. Plans for HD today. Possible discharge after HD if there are no concerns. General: non toxic, no distress, appears at stated age Derm: warm, dry Head: atraumatic, normocephalic, symmetric Eyes: EOMI, no lid lag, anicteric sclera Mouth: no lip lesion, mucus membranes moist Cardiovascular: S1S2 sirisha, no murmur Lungs: Decreased BS bilateral, no rhonchi, no rales, no accessory muscle use Ext: no gross muscle atrophy, no edema, no contractures, RUE fistula Neuro: no focal neuro deficits Psych: Alert, oriented, appropriate affect Discharge Diagnosis: Malfunctioning AV graft ESRD Normocytic anemia likely AOCD from renal failure. Glaucoma HTN Hypothyroid BPH HLD This complex discharge took 35 minutes to complete. Patient Condition at Discharge: Stable Plan - Discharge Summary Discharge Rx Participant: No New Discharge Prescriptions: Continue Simvastatin [Zocor] 20 mg PO HS Latanoprost Ophth [Xalatan 0.005%] 1 drop BOTH EYES HS Brinzolamide/Brimonidine Tart [Simbrinza 1%-0.2% Eye Drops] 1 drop BOTH EYES BID Tamsulosin HCl [Flomax] 0.4 mg PO DAILY lisinopriL [Zestril] 10 mg PO SUMOWEFR Aspirin EC [Ecotrin Low Dose] 81 mg PO HS Calcium Acetate [PhosLo] 667 mg PO AC-TID Levothyroxine Sodium [Synthroid] 137 mcg PO DAILY Discharge Medication List Brinzolamide/Brimonidine Tart [Simbrinza 1%-0.2% Eye Drops] 1 drop BOTH EYES BID 04/20/17 [History] Latanoprost Ophth [Xalatan 0.005%] 1 drop BOTH EYES HS 04/20/17 [History] Simvastatin [Zocor] 20 mg PO HS 04/20/17 [History] Tamsulosin HCl [Flomax] 0.4 mg PO DAILY 04/20/17 [History] Calcium Acetate [PhosLo] 667 mg PO AC-TID 02/07/24 [History] Levothyroxine Sodium [Synthroid] 137 mcg PO DAILY 02/07/24 [History] lisinopriL [Zestril] 10 mg PO SUMOWEFR 02/07/24 [History] Aspirin EC [Ecotrin Low Dose] 81 mg PO HS 02/14/24 [History] Follow up Appointment(s)/Referral(s): Vasquez Morton MD [Primary Care Provider] - 1-2 days Activity/Diet/Wound Care/Special Instructions: Diet: Renal Resume hemodialysis on the schedule you were on prior to admission. Discharge Disposition: HOME SELF-CARE
[2024-02-15 22:15] VITALS: TEMP 98.2
[2024-02-15 22:18] VITALS: BP 120/64; PULSE 64; RESP 16
--- NOTE | 2024-02-22 12:20 | P.OP ---
Date of Procedure: 02/15/24 Description of Procedure: Preoperative diagnosis: Thrombosed loop forearm graft Postoperative diagnosis: Same Procedure: Open thrombectomy right upper extremity loop forearm graft Surgeon: Mariana Marino D.O. EBL: 35 cc IV fluids: See records Urine output: [Not measured] Drains: [None] Complications: None immediately apparent Condition: Stable to recovery Operative indication and findings patient is a 78-year-old male with a right upper extremity loop forearm graft who initially presented a few weeks previous with a thrombosed graft. Endovascular pharmacomechanical thrombectomy was performed with improvement and ability to be discharged with a functional AV graft. He presented back today with inability to access for dialysis. The plan is to go forward at this point with an open thrombectomy. Risk and benefits were discussed. He seemingly understood and was willing to proceed. Procedure in detail: Patient was taken to the operative suite and placed in supine position. The right upper extremity was prepped and draped in usual sterile fashion. A preprocedural timeout performed, all parties were in agreement. At the apex of the graft, an incision was made and carried down through the subcutaneous tissue to the level of the graft. The graft was encircled proximally and distally with a Silastic vessel loop. A graftotomy was performed and in the outflow direction multiple passes of the Arnaldo balloon were placed without any further return of thrombus. There was minimal trickle b lood flow return however there was ability to flush easily therefore attention was then turned towards the inflow. Multiple passes were made with the Arnaldo balloon and there was appearance of brisk right red blood flow and no further evidence of thrombus. The area was flushed. The graftotomy was reapproximated with interrupted sutures of 6-0 Prolene. There was a good thrill through the graft with adequate augmentation therefore no further plans for tunnel catheter at this time. He was transported to recovery in stable condition having tolerated the procedure well. Patient will go for dialysis.
== END 2024-02-15 22:23 | disposition home or self-care (01) ==
LOC: EC 10:04 → 6NMEDSUR 13:15
PROVIDERS: ADMIT Internal Medicine; ATTEND Internal Medicine
DX: T82.868A Thrombosis due to vascular prosthetic devices, implants and grafts, initial encounter (principal); T82.41XA Breakdown (mechanical) of vascular dialysis catheter, initial encounter; I12.0 Hypertensive chronic kidney disease with stage 5 chronic kidney disease or end stage renal disease; N18.6 End stage renal disease; F03.90 Unspecified dementia, unspecified severity, without behavioral disturbance, psychotic disturbance, mood disturbance, and anxiety; Z99.2 Dependence on renal dialysis; I44.0 Atrioventricular block, first degree; D63.1 Anemia in chronic kidney disease; M89.8X9 Other specified disorders of bone, unspecified site; E03.9 Hypothyroidism, unspecified; E87.5 Hyperkalemia; E78.5 Hyperlipidemia, unspecified; H40.9 Unspecified glaucoma; N40.0 Benign prostatic hyperplasia without lower urinary tract symptoms; Z79.82 Long term (current) use of aspirin; Z79.899 Other long term (current) drug therapy; Z79.890 Hormone replacement therapy
CPT/HCPCS: 36831; 96372; 96374; 96375; 99284; 36415; 93005; 80053; 82728; 83540; 83550; 83735; 84100; 85025; 85610; 85730; G0378 ×2; C1757 ×2; J2250; J0360; J1644 ×2; J1100; J0690 ×3; J2405; J2003; J3010; J2704; J2371; J1596; 90935

== ENCOUNTER 2024-02-21 11:03 | Observation (INO) | payer MEDICARE ==
--- NOTE | 2024-02-21 11:30 | ED ---
Recheck HPI - General Chief Complaint: Recheck/Abnormal Lab/Rx Stated Complaint: Urogenital Time Seen by Provider: 02/21/24 11:23 Source: patient, RN notes reviewed Mode of arrival: ambulatory Limitations: no limitations - History of Present Illness Initial Comments: 78-year-old male presenting to the ER for AV fistula malfunction. Patient states he was not able to receive dialysis today due to problem with right AV fistula. Last dialysis was Tuesday. He was seen 1 week ago for same issue where he was admitted and underwent a procedure to fix the fistula. States he was able to receive and Tuesday dialysis. Also states he is making less urine than normal. He states he usually urinates 2-3 times per day. States he is having the urge to urinate but cannot void. - Related Data Home Medications Medication Instructions Recorded Confirmed Brinzolamide/Brimonidine Tart 1 drop BOTH EYES BID 04/20/17 02/21/24 [Simbrinza 1%-0.2% Eye Drops] Latanoprost Ophth [Xalatan 0.005%] 1 drop BOTH EYES HS 04/20/17 02/21/24 Simvastatin [Zocor] 20 mg PO HS 04/20/17 02/21/24 Tamsulosin HCl [Flomax] 0.4 mg PO DAILY 04/20/17 02/21/24 Calcium Acetate [PhosLo] 667 mg PO AC-TID 02/07/24 02/21/24 Levothyroxine Sodium [Synthroid] 137 mcg PO DAILY 02/07/24 02/21/24 lisinopriL [Zestril] 10 mg PO SUMOWEFR 02/07/24 02/21/24 Aspirin EC [Ecotrin Low Dose] 81 mg PO HS 02/14/24 02/21/24 Allergies Allergy/AdvReac Type Severity Reaction Status Date / Time No Known Allergies Allergy Verified 02/21/24 13:20 Review of Systems ROS Statement: Those systems with pertinent positive or pertinent negative responses have been documented in the HPI. ROS Other: All systems not noted in ROS Statement are negative. Past Medical History Past Medical History: Eye Disorder, Hyperlipidemia, Hypertension, Renal Disease, Thyroid Disorder Additional Past Medical History / Comment(s): glaucoma julio eyes,myasthenia gravis, dialysis //Tue History of Any Multi-Drug Resistant Organisms: None Reported Additional Past Surgical History / Comment(s): thymus gland removed 1988; AV fistula right upper extremity Past Anesthesia/Blood Transfusion Reactions: No Reported Reaction Past Psychological History: No Psychological Hx Reported Smoking Status: Never smoker Past Alcohol Use History: None Reported Past Drug Use History: None Reported - Past Family History Mother Family Medical History: Cancer Additional Family Medical History / Comment(s): lung General Exam Limitations: no limitations General appearance: alert, in no apparent distress Head exam: Present: atraumatic, normocephalic, normal inspection Right Elbow exam: Present: normal inspection, full ROM. Absent: tenderness, swelling Forearm Wrist exam: Present: normal inspection (Right forearm AV fistula present, no purulence, erythema, or tenderness to palpation), full ROM. Absent: tenderness, swelling, abrasion, erythema Hand Wrist exam: Present: normal inspection, full ROM. Absent: tenderness, swelling Vascular: Present: normal capillary refill, radial pulse. Absent: vascular compromise Neurological exam: Present: alert, oriented X3 Psychiatric exam: Present: normal affect, normal mood Skin exam: Present: warm, dry, intact, normal color. Absent: rash Course Vital Signs 02/21/24 11:11 Temperature 97.9 F Pulse Rate 60 Respiratory 20 Rate Blood Pressure 174/86 O2 Sat by Pulse 98 Oximetry Medical Decision Making - Medical Decision Making Was pt. sent in by a medical professional or institution (Dr. PA, RN INTERNSHIP, urgent care, hospital, or assisted...) When possible be specific @ -No Did you speak to anyone other than the patient for history (EMS, parent, family, police, friend...)? What history was obtained from this source @ -No Did you review nursing and triage notes (agree or disagree)? Why? @ -I reviewed and agree with nursing and triage notes Were old charts reviewed (outside hosp., previous admission, EMS record, old EKG, old radiological studies, urgent care reports/EKG's, assisted records)? Report findings @ -Previous ER visit and admission from last week reviewed Differential Diagnosis (chest pain, altered mental status, abdominal pain women, abdominal pain men, vaginal bleeding, weakness, fever, dyspnea, syncope, headache, dizziness, GI bleed, back pain, seizure, CVA, palpatations, mental health, musculoskeletal)? @ -Not applicable EKG interpreted by me (3pts min.). @ -None X-rays interpreted by me (1pt min.). @ -None done CT interpreted by me (1pt min.). @ -None done U/S interpreted by me (1pt. min.). @ -None done What testing was considered but not performed or refused? (CT, X-rays, U/S, labs)? Why? @ -None What meds were considered but not given or refused? Why? @ -None Did you discuss the management of the patient with other professionals (professionals i.e. DrKlaus, PA, RN INTERNSHIP, lab, RT, psych nurse, social services technician, instruction assistant principal, teacher, patrol officer, showcase trimmer)? Give summary @ -I spoke with GÓMEZ CatherineC, she states Dr. Rosales will perform procedure tomorrow. I also spoke with Dr. Gama from [facility] for admission with vascular and nephrology consult Was smoking cessation discussed for >3mins.? @ -No Was critical care preformed (if so, how long)? @ -No Were there social determinants of health that impacted care today? How? (Homelessness, low income, unemployed, alcoholism, drug addiction, transportation, low edu. Level, literacy, decrease access to med. care, senior living, rehab)? @ -No Was there de-escalation of care discussed even if they declined (Discuss DNR or withdrawal of care, Hospice)? DNR status @ -No What co-morbidities impacted this encounter? (DM, HTN, Smoking, COPD, CAD, Cancer, CVA, ARF, Chemo, Hep., AIDS, mental health diagnosis, sleep apnea, morbid obesity)? @ -End-stage renal disease on dialysis Was patient admitted / discharged? Hospital course, mention meds given and route, prescriptions, significant lab abnormalities, going to OR and other pertinent info. @ -Admitted. This is a 78-year-old male presenting for right AV fistula malfunction. Last successful dialysis was Tuesday. Patient is also complaining of urinary retention. Upon bladder scan, there is greater than 900 mL. Marino catheter placed at this time. Lab work significant for creatinine 9.19 which is comparable to baseline. Urinalysis reveals 2+ protein, 7 red blood cells. I spoke with JROJE Catherine from vascular who states Dr. Rosales is aware and will perform procedure tomorrow. I also spoke with Dr. Gama from [facility] for admission with vascular and nephrology consultation. Case was discussed with my ED attending Dr. Hilton. Undiagnosed new problem with uncertain prognosis? @ -No Drug Therapy requiring intensive monitoring for toxicity (Heparin, Nitro, Insulin, Cardizem)? @ -No Were any procedures done? @ -No Diagnosis/symptom? @ -Right AV fistula malfunction Acute, or Chronic, or Acute on Chronic? @ -Acute Uncomplicated (without systemic symptoms) or Complicated (systemic symptoms)? @ -Uncomplicated Side effects of treatment? @ -No Exacerbation, Progression, or Severe Exacerbation? @ -No Poses a threat to life or bodily function? How? (Chest pain, USA, MS, pneumonia, PE, COPD, DKA, ARF, appy, cholecystitis, CVA, Diverticulitis, Homicidal, Suicidal, threat to staff... and all critical care pts) @ -Yes, end-stage renal disease without dialysis mainly due to hyperkalemia and cardiac arrest - Lab Data Result diagrams: 02/21/24 11:48 02/21/24 11:48 Lab Results 02/21/24 02/21/24 02/21/24 Range/Units 11:48 11:48 11:48 WBC 4.0 (3.8-10.6) k/uL RBC 3.67 L (4.30-5.90) m/uL Hgb 10.5 L (13.0-17.5) gm/dL Hct 33.0 L (39.0-53.0) % MCV 90.0 (80.0-100.0) fL MCH 28.6 (25.0-35.0) pg MCHC 31.8 (31.0-37.0) g/dL RDW 15.8 H (11.5-15.5) % Plt Count 149 L (150-450) k/uL MPV 8.0 Neutrophils % 68 % Lymphocytes % 19 % Monocytes % 8 % Eosinophils % 3 % Basophils % 1 % Neutrophils # 2.7 (1.3-7.7) k/uL Lymphocytes # 0.7 L (1.0-4.8) k/uL Monocytes # 0.3 (0-1.0) k/uL Eosinophils # 0.1 (0-0.7) k/uL Basophils # 0.0 (0-0.2) k/uL PT 11.0 (10.0-12.5) sec INR 1.0 (<1.2) APTT 20.3 L (22.0-30.0) sec Sodium 145 (137-145) mmol/L Potassium 4.3 (3.5-5.1) mmol/L Chloride 108 H (98-107) mmol/L Carbon Dioxide 28 (22-30) mmol/L Anion Gap 9 mmol/L BUN 63 H (9-20) mg/dL Creatinine 9.19 H* (0.66-1.25) mg/dL Est GFR (CKD-EPI)AfAm 6 (>60 ml/min/1.73 sqM) Est GFR (CKD-EPI)NonAf 5 (>60 ml/min/1.73 sqM) Glucose 91 (74-99) mg/dL Calcium 8.1 L (8.4-10.2) mg/dL Total Bilirubin 0.5 (0.2-1.3) mg/dL AST 26 (17-59) U/L ALT 8 (4-49) U/L Alkaline Phosphatase 75 (38-126) U/L Total Protein 7.8 (6.3-8.2) g/dL Albumin 3.9 (3.5-5.0) g/dL Urine Color Urine Appearance (Clear) Urine pH (5.0-8.0) Ur Specific [place] (1.001-1.035) Urine Protein (Negative) Urine Glucose (UA) (Negative) Urine Ketones (Negative) Urine Blood (Negative) Urine Nitrite (Negative) Urine Bilirubin (Negative) Urine Urobilinogen (<2.0) mg/dL Ur Leukocyte Esterase (Negative) Urine RBC (0-5) /hpf Urine WBC (0-5) /hpf Ur Squamous Epith Cells (0-4) /hpf 02/21/24 Range/Units 12:38 WBC (3.8-10.6) k/uL RBC (4.30-5.90) m/uL Hgb (13.0-17.5) gm/dL Hct (39.0-53.0) % MCV (80.0-100.0) fL MCH (25.0-35.0) pg MCHC (31.0-37.0) g/dL RDW (11.5-15.5) % Plt Count (150-450) k/uL MPV Neutrophils % % Lymphocytes % % Monocytes % % Eosinophils % % Basophils % % Neutrophils # (1.3-7.7) k/uL Lymphocytes # (1.0-4.8) k/uL Monocytes # (0-1.0) k/uL Eosinophils # (0-0.7) k/uL Basophils # (0-0.2) k/uL PT (10.0-12.5) sec INR (<1.2) APTT (22.0-30.0) sec Sodium (137-145) mmol/L Potassium (3.5-5.1) mmol/L Chloride (98-107) mmol/L Carbon Dioxide (22-30) mmol/L Anion Gap mmol/L BUN (9-20) mg/dL Creatinine (0.66-1.25) mg/dL Est GFR (CKD-EPI)AfAm (>60 ml/min/1.73 sqM) Est GFR (CKD-EPI)NonAf (>60 ml/min/1.73 sqM) Glucose (74-99) mg/dL Calcium (8.4-10.2) mg/dL Total Bilirubin (0.2-1.3) mg/dL AST (17-59) U/L ALT (4-49) U/L Alkaline Phosphatase (38-126) U/L Total Protein (6.3-8.2) g/dL Albumin (3.5-5.0) g/dL Urine Color Yellow Urine Appearance Clear (Clear) Urine pH 7.0 (5.0-8.0) Ur Specific [place] 1.013 (1.001-1.035) Urine Protein 2+ H (Negative) Urine Glucose (UA) Trace H (Negative) Urine Ketones Negative (Negative) Urine Blood Small H (Negative) Urine Nitrite Negative (Negative) Urine Bilirubin Negative (Negative) Urine Urobilinogen <2.0 (<2.0) mg/dL Ur Leukocyte Esterase Negative (Negative) Urine RBC 7 H (0-5) /hpf Urine WBC 1 (0-5) /hpf Ur Squamous Epith Cells <1 (0-4) /hpf Disposition Clinical Impression: Dialysis AV fistula malfunction Disposition: ADMITTED IP TO THIS HOSP Referrals: Lwin,Hnin, MD [Primary Care Provider] - 1-2 days Time of Disposition: 14:07
[2024-02-21 11:57] LABS: Basophils % (A) 1 %; Eosinophils # (A) 0.1 k/uL (0-0.7); Eosinophils % (A) 3 %; HGB 10.5 gm/dL (13.0-17.5); Lymphocytes # (A) 0.7 k/uL (1.0-4.8); Lymphocytes % (A) 19 %; MCH 28.6 pg (25.0-35.0); MCHC 31.8 g/dL (31.0-37.0); Monocytes # (A) 0.3 k/uL (0-1.0); Monocytes % (A) 8 %; Neutrophils # (A) 2.7 k/uL (1.3-7.7); Neutrophils % (A) 68 %; Platelet Count 149 k/uL (150-450); RBC 3.67 m/uL (4.30-5.90); RDW 15.8 % (11.5-15.5)
[2024-02-21 12:13] LABS: ALT 8 U/L (4-49); AST 26 U/L (17-59); African American GFR (CKD) 6 (>60 ml/min/1.73 sqM); Albumin 3.9 g/dL (3.5-5.0); Alkaline Phosphatase 75 U/L (38-126); Anion Gap 9 mmol/L; Blood Urea Nitrogen 63 mg/dL (9-20); Calcium 8.1 mg/dL (8.4-10.2); Carbon Dioxide 28 mmol/L (22-30); Chloride 108 mmol/L (98-107); Glucose 91 mg/dL (74-99); Non-African American GFR(CKD) 5 (>60 ml/min/1.73 sqM); Potassium 4.3 mmol/L (3.5-5.1); Sodium 145 mmol/L (137-145); Total Bilirubin 0.5 mg/dL (0.2-1.3); Total Protein 7.8 g/dL (6.3-8.2)
[2024-02-21 12:51] LABS: Partial Thromboplastin Time 20.3 sec (22.0-30.0)
[2024-02-21 13:13] LABS: Appearance,Urine Clear (Clear); Bilirubin,Urine Negative (Negative); Blood,Urine Small (Negative); Color,Urine Yellow; Glucose,Urine (UA) Trace (Negative); Ketones,Urine Negative (Negative); Leukocyte Esterase,Urine Negative (Negative); Nitrite,Urine Negative (Negative); Protein,Urine 2+ (Negative); RBC,Urine 7 /hpf (0-5); Specific Gravity,Urine 1.013 (1.001-1.035); Squamous Epithelial Cell,Urine <1 /hpf (0-4); Urobilinogen,Urine <2.0 mg/dL (<2.0); WBC,Urine 1 /hpf (0-5)
[2024-02-21] MEDS ORDERED: NALOXONE 0.4 MG/ML 1 ML VIAL IV PRN (13:59)
--- NOTE | 2024-02-21 14:05 | P.GSCN ---
History of Present Illness Consult date: 02/21/24 Reason for Consult: Malfunctioning AV graft Requesting physician: Andra East History of present illness: This a pleasant 78-year-old -[place] male with end-stage renal disease on hemodialysis Tuesday schedule. He has recently been having trouble with access with the AV graft and he has undergone fistulogram with balloon dilation at the end of January and came in again February 13 with ma lfunctioning graft and underwent open thrombectomy on 02 14. Following that he had dialysis that day with it working well. He again had dialysis and this past Tuesday without any complications. Today he went in for dialysis and he had no palpable thrill. He presented to the emergency department due to lack of access for dialysis. He denies any shortness of breath, lower extremity swe lling, or chest pain. Denies any pain or swelling in his right upper extremity. Sodium 145 potassium 4.3 BUN 62 creatinine 9.19. Review of Systems A 14 point review systems was completed all pertinent positives and negatives as stated in the HPI. Past Medical History Past Medical History: Eye Disorder, Hyperlipidemia, Hypertension, Renal Disease, Thyroid Disorder Additional Past Medical History / Comment(s): glaucoma julio eyes,myasthenia gravis, dialysis //Tue History of Any Multi-Drug Resistant Organisms: None Reported Additional Past Surgical History / Comment(s): thymus gland removed 1988; AV fistula right upper extremity Past Anesthesia/Blood Transfusion Reactions: No Reported Reaction Past Psychological History: No Psychological Hx Reported Smoking Status: Never smoker Past Alcohol Use History: None Reported Past Drug Use History: None Reported - Past Family History Mother Family Medical History: Cancer Additional Family Medical History / Comment(s): lung Medications and Allergies Home Medications Medication Instructions Recorded Confirmed Type Brinzolamide/Brimonidine Tart 1 drop BOTH EYES BID 04/20/17 02/21/24 History [Simbrinza 1%-0.2% Eye Drops] Latanoprost Ophth [Xalatan 0.005%] 1 drop BOTH EYES HS 04/20/17 02/21/24 History Simvastatin [Zocor] 20 mg PO HS 04/20/17 02/21/24 History Tamsulosin HCl [Flomax] 0.4 mg PO DAILY 04/20/17 02/21/24 History Calcium Acetate [PhosLo] 667 mg PO AC-TID 02/07/24 02/21/24 History Levothyroxine Sodium [Synthroid] 137 mcg PO DAILY 02/07/24 02/21/24 History lisinopriL [Zestril] 10 mg PO SUMOWEFR 02/07/24 02/21/24 History Aspirin EC [Ecotrin Low Dose] 81 mg PO HS 02/14/24 02/21/24 History Allergies Allergy/AdvReac Type Severity Reaction Status Date / Time No Known Allergies Allergy Verified 02/21/24 13:20 Surgical - Exam Vital Signs Temp Pulse Resp BP Pulse Ox 97.9 F 60 20 174/86 98 02/21/24 11:11 02/21/24 11:11 02/21/24 11:11 02/21/24 11:11 02/21/24 11:11 General appearance: The patient is alert, oriented, appears in no acute distress. HET: Head is normocephalic and atraumatic. Pupils are equal and reactive. Neck: Supple. Heart: Regular. Lungs: Equal expansion, normal respiratory effort. Abdomen: Soft, nontender, nondistended. Extremities: Normal skin color and turgor. Right upper extremity AV graft without palpable thrill and no audible bruit. Palpable radial pulse. No swelling in the right upper extremity, no drainage and no pain. Neurological: Alert and oriented. Results - Labs 02/21/24 11:48 02/21/24 11:48 Abnormal Lab Results - Last 24 Hours (Table) 02/21/24 02/21/24 02/21/24 Range/Units 11:48 11:48 11:48 RBC 3.67 L (4.30-5.90) m/uL Hgb 10.5 L (13.0-17.5) gm/dL Hct 33.0 L (39.0-53.0) % RDW 15.8 H (11.5-15.5) % Plt Count 149 L (150-450) k/uL Lymphocytes # 0.7 L (1.0-4.8) k/uL APTT 20.3 L (22.0-30.0) sec Chloride 108 H (98-107) mmol/L BUN 63 H (9-20) mg/dL Creatinine 9.19 H* (0.66-1.25) mg/dL Calcium 8.1 L (8.4-10.2) mg/dL Urine Protein (Negative) Urine Glucose (UA) (Negative) Urine Blood (Negative) Urine RBC (0-5) /hpf 02/21/24 Range/Units 12:38 RBC (4.30-5.90) m/uL Hgb (13.0-17.5) gm/dL Hct (39.0-53.0) % RDW (11.5-15.5) % Plt Count (150-450) k/uL Lymphocytes # (1.0-4.8) k/uL APTT (22.0-30.0) sec Chloride (98-107) mmol/L BUN (9-20) mg/dL Creatinine (0.66-1.25) mg/dL Calcium (8.4-10.2) mg/dL Urine Protein 2+ H (Negative) Urine Glucose (UA) Trace H (Negative) Urine Blood Small H (Negative) Urine RBC 7 H (0-5) /hpf Diabetes panel 02/21/24 Range/Units 11:48 Sodium 145 (137-145) mmol/L Potassium 4.3 (3.5-5.1) mmol/L Chloride 108 H (98-107) mmol/L Carbon Dioxide 28 (22-30) mmol/L BUN 63 H (9-20) mg/dL Creatinine 9.19 H* (0.66-1.25) mg/dL Glucose 91 (74-99) mg/dL Calcium 8.1 L (8.4-10.2) mg/dL AST 26 (17-59) U/L ALT 8 (4-49) U/L Alkaline Phosphatase 75 (38-126) U/L Total Protein 7.8 (6.3-8.2) g/dL Albumin 3.9 (3.5-5.0) g/dL Calcium panel 02/21/24 Range/Units 11:48 Calcium 8.1 L (8.4-10.2) mg/dL Albumin 3.9 (3.5-5.0) g/dL Pituitary panel 02/21/24 Range/Units 11:48 Sodium 145 (137-145) mmol/L Potassium 4.3 (3.5-5.1) mmol/L Chloride 108 H (98-107) mmol/L Carbon Dioxide 28 (22-30) mmol/L BUN 63 H (9-20) mg/dL Creatinine 9.19 H* (0.66-1.25) mg/dL Glucose 91 (74-99) mg/dL Calcium 8.1 L (8.4-10.2) mg/dL Adrenal panel 02/21/24 Range/Units 11:48 Sodium 145 (137-145) mmol/L Potassium 4.3 (3.5-5.1) mmol/L Chloride 108 H (98-107) mmol/L Carbon Dioxide 28 (22-30) mmol/L BUN 63 H (9-20) mg/dL Creatinine 9.19 H* (0.66-1.25) mg/dL Glucose 91 (74-99) mg/dL Calcium 8.1 L (8.4-10.2) mg/dL Total Bilirubin 0.5 (0.2-1.3) mg/dL AST 26 (17-59) U/L ALT 8 (4-49) U/L Alkaline Phosphatase 75 (38-126) U/L Total Protein 7.8 (6.3-8.2) g/dL Albumin 3.9 (3.5-5.0) g/dL Assessment and Plan Assessment: 1. Malfunctioning right upper extremity AV graft 2. End-stage renal disease requiring hemodialysis Plan: 1. Patient may have renal diet, n.p.o. after midnight 2. Will plan for right upper extremity fistulogram with balloon angioplasty, possible tunneled hemodialysis catheter placement 3. Hemodialysis per nephrology 4. Rest of medical management per primary medical team Thank you for this consultation, we will continue to follow. The impression and plan of care has been dictated as directed. I performed a history and examination of this patient, discussed the same with the dictator. I agree with the dictator's note ,documented as a scribe. Any additional findings or plans will be noted.
--- NOTE | 2024-02-21 14:37 | P.HPIM ---
History of Present Illness H&P Date: 02/21/24 Patient is a 78-year-old male with history of ESRD on hemodialysis (Tuesday, , Tuesday), hypertension, BPH, and hyperlipidemia presents to the ER with right upper extremity AV fistula malfunction. Patient was unable to get his dialysis schedule for Tuesday. Last dialysis was on Tuesday. Patient recently underwent right upper extremity fistulogram with percutaneous thrombectomy and balloon angioplasty and was scheduled this week for right upper extremity thrombectomy with possible tunnel catheter placement. Additionally patient had a straight cath in the ER today with a urine output of 700 mL. Patient was making less urine than normal which normally is 2-3 times per day. At the time of the interview, patient is not in any acute distress. Denies any abdominal pain, shortness of breath, chest pain, nausea, vomiting, numbness, tingling or weakness in upper or lower extremities. Patient denies any history of CAD and/or CVA. Initial lab work in the ER shows WBC 4.0, hemoglobin 10.5, MCV 90 platelet count 149,, PT 11, INR 1, APTT 20.3, sodium 145, potassium 4.3, chloride 108, BUN 63, creatinine 9.19, calcium 8.1,. Urinalysis is negative for nitrite and leukocyte esterase. Vitals: Tmax 97.9 F, heart rate of 60, respiration 20, blood pressure 174/86, oxygen saturation 98% on room air. ED documentation reviewed and case discussed with ED provider and patient is admitted for hemodialysis and malfunctioning right upper extremity AV fistula. Review of systems: Pertinent positives and negatives as discussed in HPI, a complete review of systems was performed and all other systems are negative. Physical examination: Vital signs reviewed General: non toxic, no distress, appears at stated age, normal weight HEENT: NC/AT, EOM intact, PERRLA, oropharynx WNL, no erythema or exudate Neck: No cervical lymphadenopathy, trachea midline, supple Mouth: no lip lesion, mucus membranes moist Cardiovascular: S1S2 reg, no murmur, positive dorsalis pedis pulse bilateral, no edema Lungs: CTA bilateral, no rhonchi, no rales, no accessory muscle use Abdominal: soft, nontender to palpation, no guarding Ext: Muscle strength 5/5 in all 4 extremities, sensation intact throughout, nonpalpable thrill with no bruit heard over the right upper extremity AV fistula Neuro: CN II-XI grossly intact, no gross focal neuro deficits Psych: Alert, oriented, appropriate affect Assessment/Plan: Patient is a 78-year-old male with history of ESRD on hemodialysis (Tuesday, , Tuesday), hypertension and hyperlipidemia presents to the ER with right upper extremity AV fistula malfunction. Patient is admitted for hemodialysis and malfunctioning right upper extremity AV fistula. #ESRD #Right upper extremity AV fistula malfunction #Urinary retention status post straight cath in ER BUN 63, creatinine 9.19 Status post straight cath in ER Consult nephrology Hemodialysis once there is vascular access Consult vascular surgery Monitor BMP Renal diet N.p.o. after midnight #Anemia of the chronic disease in the setting of ESRD Hemoglobin 10.5, MCV 90 Iron studies on 02/14/2024: Iron 51, TIBC 230, percent saturation 22, transferrin 164, ferritin 1090 Monitor CBC Chronic conditions: Hypertension: Continue lisinopril 10 mg p.o. daily BPH: Resume Flomax 0.4 mg p.o. daily Hypothyroidism: Resume Synthroid 137 mcg p.o. daily DVT prophylaxis: Not indicated, low risk for DVT The patient is admitted with an anticipated less than 2 midnight stay for evaluation of AV fistula malfunction CODE STATUS: Full code Discussed with: Patient Anticipated discharge place: Home A total of 55 minutes was spent on the care of this complex patient more than 50% of the time was spent in counseling and care coordination. I have seen and evaluated the patient today. Discussed with the resident and agree with the residents finding and plan as documented in the resident's note. Changes highlighted in blue font. Past Medical History Past Medical History: Eye Disorder, Hyperlipidemia, Hypertension, Renal Disease, Thyroid Disorder Additional Past Medical History / Comment(s): glaucoma julio eyes,myasthenia gravis, dialysis //Tue History of Any Multi-Drug Resistant Organisms: None Reported Additional Past Surgical History / Comment(s): thymus gland removed 1988; AV fistula right upper extremity Past Anesthesia/Blood Transfusion Reactions: No Reported Reaction Past Psychological History: No Psychological Hx Reported Smoking Status: Never smoker Past Alcohol Use History: None Reported Past Drug Use History: None Reported - Past Family History Mother Family Medical History: Cancer Additional Family Medical History / Comment(s): lung Medications and Allergies Home Medications Medication Instructions Recorded Confirmed Type Brinzolamide/Brimonidine Tart 1 drop BOTH EYES BID 04/20/17 02/21/24 History [Simbrinza 1%-0.2% Eye Drops] Latanoprost Ophth [Xalatan 0.005%] 1 drop BOTH EYES HS 04/20/17 02/21/24 History Simvastatin [Zocor] 20 mg PO HS 04/20/17 02/21/24 History Tamsulosin HCl [Flomax] 0.4 mg PO DAILY 04/20/17 02/21/24 History Calcium Acetate [PhosLo] 667 mg PO AC-TID 02/07/24 02/21/24 History Levothyroxine Sodium [Synthroid] 137 mcg PO DAILY 02/07/24 02/21/24 History lisinopriL [Zestril] 10 mg PO SUMOWEFR 02/07/24 02/21/24 History Aspirin EC [Ecotrin Low Dose] 81 mg PO HS 02/14/24 02/21/24 History Allergies Allergy/AdvReac Type Severity Reaction Status Date / Time No Known Allergies Allergy Verified 02/21/24 13:20 Physical Exam Vitals: Vital Signs Temp Pulse Resp BP Pulse Ox 02/21/24 11:11 97.9 F 60 20 174/86 98 Intake and Output 02/20/24 02/21/24 02/21/24 22:59 06:59 14:59 Output Total 700 Balance -700 Output: Urine 700 Uretheral (Marino) 700 Other: Voiding Method Toilet Diaper Incontinent Weight 97.522 kg Results CBC & Chem 7: 02/21/24 11:48 02/21/24 11:48 Labs: Abnormal Lab Results - Last 24 Hours (Table) 02/21/24 02/21/24 02/21/24 Range/Units 11:48 11:48 11:48 RBC 3.67 L (4.30-5.90) m/uL Hgb 10.5 L (13.0-17.5) gm/dL Hct 33.0 L (39.0-53.0) % RDW 15.8 H (11.5-15.5) % Plt Count 149 L (150-450) k/uL Lymphocytes # 0.7 L (1.0-4.8) k/uL APTT 20.3 L (22.0-30.0) sec Chloride 108 H (98-107) mmol/L BUN 63 H (9-20) mg/dL Creatinine 9.19 H* (0.66-1.25) mg/dL Calcium 8.1 L (8.4-10.2) mg/dL Urine Protein (Negative) Urine Glucose (UA) (Negative) Urine Blood (Negative) Urine RBC (0-5) /hpf 02/21/24 Range/Units 12:38 RBC (4.30-5.90) m/uL Hgb (13.0-17.5) gm/dL Hct (39.0-53.0) % RDW (11.5-15.5) % Plt Count (150-450) k/uL Lymphocytes # (1.0-4.8) k/uL APTT (22.0-30.0) sec Chloride (98-107) mmol/L BUN (9-20) mg/dL Creatinine (0.66-1.25) mg/dL Calcium (8.4-10.2) mg/dL Urine Protein 2+ H (Negative) Urine Glucose (UA) Trace H (Negative) Urine Blood Small H (Negative) Urine RBC 7 H (0-5) /hpf
[2024-02-21] MEDS: LEVOTHYROXINE 137 MCG TAB PO SCH (17:25)
[2024-02-21] MEDS: TAMSULOSIN 0.4 MG CAP.ER.24H PO SCH (17:25)
[2024-02-21] MEDS: CALCIUM ACETATE 667 MG TAB PO SCH (17:26)
[2024-02-21] MEDS ORDERED: hydrALAZINE HCL 20 MG/ML 1 ML VIAL IVP PRN (18:03)
[2024-02-21] MEDS: lisinopriL 10 MG TAB PO STA (18:21)
[2024-02-21] MEDS: DORZOLAMIDE HCL 2% DROPS 10 ML BTL BOTH EYES SCH (21:07)
[2024-02-21] MEDS: ASPIRIN 81 MG PO SCH (21:07)
[2024-02-21] MEDS: LATANOPROST 0.005% OPHTH DROPS 2.5 ML BTL BOTH EYES SCH (21:07)
[2024-02-21] MEDS: ATORVASTATIN 10 MG TAB PO SCH (21:07)
[2024-02-22 08:34] LABS: Basophils # (A) 0.04 X 10*3/uL (0.00-0.10); Eosinophils % (A) 2.4 %; HCT 29.7 % (39.6-50.0); HGB 9.3 g/dL (13.0-17.0); Lymphocytes # (A) 1.08 X 10*3/uL (0.90-5.00); Lymphocytes % (A) 25.8 %; MCHC 31.3 g/dL (32.0-37.0); MCV 92.5 FL (80.0-97.0); Mean Platelet Volume 10.9 FL (9.5-12.2); Monocytes # (A) 0.51 X 10*3/uL (0.20-1.00); Monocytes % (A) 12.2 %; NRBC Per 100 WBC 0 X 10*3/uL (0.00-0.01); Neutrophils # (A) 2.44 X 10*3/uL (1.80-7.70); Neutrophils % (A) 58.4 %; Platelet Count 151 X 10*3/uL (140-440); RBC 3.21 X 10*6/uL (4.40-5.60); RDW 15.5 % (11.5-14.5); WBC 4.18 X 10*3/uL (4.50-10.00)
[2024-02-22] MEDS: lisinopriL 10 MG TAB PO SCH (08:34)
[2024-02-22 08:43] LABS: BUN/Creat Ratio 7.04 Ratio (12.00-20.00); Blood Urea Nitrogen 63.4 mg/dL (9.0-27.0); Carbon Dioxide 24.9 mmol/L (21.6-31.8); Chloride 105 mmol/L (96-109); Glucose 84 mg/dL (70-110); Magnesium 2.2 mg/dL (1.5-2.4); Sodium 143 mmol/L (135-145)
[2024-02-22 08:44] LABS: Calcium 7.7 mg/dL (8.7-10.3)
[2024-02-22] MEDS: SODIUM CHLORIDE 0.9% 250 ML IV ONE (11:11)
[2024-02-22] MEDS: fentaNYL (PF) 50 MCG/1 ML VIAL IVP ONE (11:50)
[2024-02-22] MEDS: LIDOCAINE 1% INJ 10MG/ML (30 ML VIAL-PF) SQ ONE (11:53)
--- NOTE | 2024-02-22 11:55 | P.PN ---
Subjective Progress Note Date: 02/22/24 Subjective: Patient seen and examined at the bedside. No acute events overnight. Patient had a Marino catheter placed yesterday for urine retention. All Systems reviewed and pertinent positives and negatives noted in HPI, all other symptoms are negative Objective: Vital signs reviewed. General: non toxic, no distress, appears at stated age, normal weight HEENT: NC/AT, EOM intact, PERRLA, oropharynx WNL, no erythema or exudate Neck: No cervical lymphadenopathy, trachea midline, supple Mouth: no lip lesion, mucus membranes moist Cardiovascular: S1S2 reg, no murmur, positive dorsalis pedis pulse bilateral, no edema Lungs: CTA bilateral, no rhonchi, no rales, no accessory muscle use Abdominal: soft, nontender to palpation, no guarding, Genitourinary: Patient has Marino catheter in place Ext: Muscle strength 5/5 in all 4 extremities, sensation intact throughout, nonpalpable thrill with no bruit heard over the right upper extremity AV fistula Neuro: CN II-XI grossly intact, no gross focal neuro deficits Psych: Alert, oriented, appropriate affect Data reviewed today: Pertinent Labs: WBC 4.84, hemoglobin 9.3, hematocrit 29.7, platelet 151, sodium 143, potassium 5.0, chloride 105, bicarb 24.9, anion gap 13.1, BUN 63.4, creatinine 9.0, Images: No new imaging Assessment and Plan: Patient is a 78-year-old male with history of ESRD on hemodialysis (Tuesday, , Tuesday), hypertension and hyperlipidemia presents to the ER with right upper extremity AV fistula malfunction. Patient is admitted for hemodialysis and malfunctioning right upper extremity AV fistula. #ESRD #Right upper extremity AV fistula malfunction #Urinary retention status Marino catheter BUN 63, creatinine 9.19 Consult nephrology Consult vascular surgery: right upper extremity fistulogram with balloon angioplasty, possible tunneled hemodialysis catheter placement today Hemodialysis once there is vascular access Monitor BMP Renal diet N.p.o.; renal diet after dialysis #Anemia of the chronic disease in the setting of ESRD Hemoglobin 9.3 Iron studies on 02/14/2024: Iron 51, TIBC 230, percent saturation 22, transferrin 164, ferritin 1090 Monitor CBC Acute urinary retention -Continue Flomax -Status post Marino catheter -Voiding trial Chronic conditions: Hypertension: Continue lisinopril 10 mg p.o. daily BPH: Resume Flomax 0.4 mg p.o. daily Hypothyroidism: Resume Synthroid 137 mcg p.o. daily DVT prophylaxis: Not indicated, low risk for DVT CODE STATUS: Full code Discussed with: Patient Anticipated discharge place: Home I have seen and evaluated the patient today. Discussed with the resident and agree with the residents finding and plan as documented in the resident's note. Changes highlighted in blue font. Objective - Vital Signs Vital signs: Vital Signs Temp 98.2 F 02/22/24 08:07 Pulse 44 L 02/22/24 08:07 Resp 18 02/22/24 08:07 BP 181/80 02/22/24 08:07 Pulse Ox 100 02/22/24 08:07 FiO2 Intake & Output 02/21/24 02/22/24 02/22/24 18:59 06:59 18:59 Intake Total 648 Output Total 700 500 Balance -52 -500 Weight 97.522 kg Intake: Oral 648 Output: Urine 700 500 Uretheral (Marino) 700 Other: Voiding Method Toilet Indwelling Catheter Indwelling Catheter Diaper Incontinent - Labs CBC & Chem 7: 02/22/24 05:02 02/22/24 05:02 Labs: Abnormal Lab Results - Last 24 Hours (Table) 02/21/24 02/21/24 02/21/24 Range/Units 11:48 11:48 11:48 WBC (4.50-10.00) X 10*3/uL RBC 3.67 L (4.30-5.90) m/uL Hgb 10.5 L (13.0-17.5) gm/dL Hct 33.0 L (39.0-53.0) % MCHC (32.0-37.0) g/dL RDW 15.8 H (11.5-15.5) % Plt Count 149 L (150-450) k/uL Lymphocytes # 0.7 L (1.0-4.8) k/uL APTT 20.3 L (22.0-30.0) sec Chloride 108 H (98-107) mmol/L Anion Gap (4.00-12.00) mmol/L BUN 63 H (9-20) mg/dL Creatinine 9.19 H* (0.66-1.25) mg/dL Est GFR (CKD-EPI) (>=60) BUN/Creatinine Ratio (12.00-20.00) Ratio Calcium 8.1 L (8.4-10.2) mg/dL Urine Protein (Negative) Urine Glucose (UA) (Negative) Urine Blood (Negative) Urine RBC (0-5) /hpf 02/21/24 02/22/24 02/22/24 Range/Units 12:38 05:02 05:02 WBC 4.18 L (4.50-10.00) X 10*3/uL RBC 3.21 L (4.30-5.90) m/uL Hgb 9.3 L (13.0-17.5) gm/dL Hct 29.7 L (39.0-53.0) % MCHC 31.3 L (32.0-37.0) g/dL RDW 15.5 H (11.5-15.5) % Plt Count (150-450) k/uL Lymphocytes # (1.0-4.8) k/uL APTT (22.0-30.0) sec Chloride (98-107) mmol/L Anion Gap 13.10 H (4.00-12.00) mmol/L BUN 63.4 H (9-20) mg/dL Creatinine 9.0 H (0.66-1.25) mg/dL Est GFR (CKD-EPI) 6 L (>=60) BUN/Creatinine Ratio 7.04 L (12.00-20.00) Ratio Calcium 7.7 L (8.4-10.2) mg/dL Urine Protein 2+ H (Negative) Urine Glucose (UA) Trace H (Negative) Urine Blood Small H (Negative) Urine RBC 7 H (0-5) /hpf
[2024-02-22] MEDS: IOPAMIDOL-370 100ML BTL INJ ONE (12:42)
--- NOTE | 2024-02-22 13:25 | P.OP ---
Date of Procedure: 02/22/24 Preoperative Diagnosis: 1: CKD 5. 2: Thrombosed right upper extremity AV dialysis graft. Postoperative Diagnosis: Same plus right brachial vein thrombus. Procedure(s) Performed: 1: Placement of 6 Guatemalan sheath in the AV graft x 2. 2: Fistulogram. 3: Percutaneous mechanical thrombectomy utilizing AngioJet. 4: Balloon dilation of arterial and venous anastomotic lines and venous outflow tract. 5: Central venogram. Anesthesia: local Surgeon: Austin Bone Estimated Blood Loss (ml): 15 IV fluids (ml): 0 Urine output (ml): 0 Pathology: none sent Condition: stable Disposition: no change Indications for Procedure: Patient is a 78-year-old male who suffers from chronic renal failure and is dialysis dependent. He has a right extremity AV graft which has thrombosed. Patient was not offered percutaneous thrombectomy/balloon dilation. Description of Procedure: Patient was brought to the special procedure suite. The right upper extremity sterilely prepped and draped in usual manner. The graft was palpated. 1% Xylocaine was utilized for local anesthesia overlying the graft. Through this anesthetized area a micropuncture needle was utilized to cannulate the vein and a soft guidewire was advanced through the micropuncture needle. The needle was withdrawn and a micropuncture sheath and dilator were advanced over the guidewire. Guidewire and dilator were withdrawn and through the sheath a 0.035 inch J-tip guidewire was advanced. The micropuncture sheath was exchanged for a 6 Guatemalan sheath. A second sheath was placed in the opposite direction utilizing the similar technique. Fistulogram was performed which demonstrated complete thrombosis of the graft. AngioJet was selected and was utilized to mechanically thrombectomized the graft. Fistulogram was then performed which demonstrated arterial as well as venous anastomotic line stenosis. The arterial anastomotic line was crossed with a guidewire and a 7 mm drug-eluting balloon was utilized to dilate the anastomotic line. Similarly an 8 mm drug-eluting balloon was utilized to dilate the outflow tract. Completion fistulogram demonstrated both the arterial anastomotic and venous anastomotic lines to be widely patent however there appeared to be sluggish drainage through the fistula. This prompted a venogram of the humeral and central venous segments. The central venous segment was widely patent however thrombus was noted in the basilic outflow tract. This area was balloon dilated with a 7 mm x 100 mm balloon dilation catheter and completion fistulogram demonstrated this area now to be patent with no flow-limiting lesion noted. Excellent outflow through the graft was identified. With the above findings noted each sheath was withdrawn and the puncture site at each location was closed with nylon suture. Appropriate dressings were applied. Patient tolerated the procedure well and was returned to his room in satisfactory and stable condition.
--- NOTE | 2024-02-22 13:38 | IR ---
EXAMINATION TYPE: IR fistula/abscess/sinus tract DATE OF EXAM: 02/22/2024 1:10 PM COMPARISON: Pre Operative Images if available both CT/MRI or plain film CLINICAL INDICATION: Male, 78 years old with history of right arm fistula not working, 5.4min fluoro, [id number]; TECHNIQUE: IR fistula/abscess/sinus tract, multiple fluoroscopic images provided for procedure. FINDINGS: right arm fistula not working, 5.4min fluoro, [id number] IMPRESSION: 1. Report was generated for administrative purposes only. 2. Please see the operative/procedural note for further details. [facility], , 02/22/2024 1:35 PM
[2024-02-23 07:38] VITALS: RESP 18
--- NOTE | 2024-02-23 09:23 | P.PN ---
Subjective Progress Note Date: 02/23/24 Principal diagnosis: Malfunctioning AV graft Patient is seen and examined today as a follow-up. Yesterday he underwent fistulogram with percutaneous mechanical thrombectomy and balloon dilation of right upper extremity. He he received dialysis yesterday without any complications. He did have his session end early due to hypotension. He denies any pain in his right upper extremity. States he has palpable thrill. Objective - Vital Signs Vital signs: Vital Signs Temp 97.8 F 02/23/24 07:00 Pulse 45 L 02/23/24 07:00 Resp 18 02/23/24 07:00 BP 147/66 02/23/24 07:00 Pulse Ox 99 02/23/24 07:00 FiO2 Intake & Output 02/22/24 02/23/24 02/23/24 18:59 06:59 18:59 Intake Total 40 1200 Output Total 800 2400 Balance -760 -1200 Intake: IV 40 Hemodialysis 1200 Output: Urine 800 Uretheral (Marino) 400 Hemodialysis 1800 Hemodialysis Net Amount 600 Other: Voiding Method Indwelling Catheter Toilet Urinal # Voids 0 - Exam General appearance: The patient is alert, oriented, appears in no acute distress. HET: Head is normocephalic and atraumatic. Pupils are equal and reactive. Neck: Supple. Heart: Regular. Lungs: Equal expansion, normal respiratory effort. Abdomen: Soft, nontender, nondistended. Extremities: Normal skin color and turgor. Right upper extremity AV graft with palpable thrill and audible bruit. Neurological: No focal deficits. Strength and sensation are grossly intact. - Labs CBC & Chem 7: 02/22/24 05:02 02/22/24 05:02 Labs: Abnormal Lab Results - Last 24 Hours (Table) 02/22/24 02/22/24 Range/Units 05:02 05:02 WBC 4.18 L (4.50-10.00) X 10*3/uL RBC 3.21 L (4.40-5.60) X 10*6/uL Hgb 9.3 L (13.0-17.0) g/dL Hct 29.7 L (39.6-50.0) % MCHC 31.3 L (32.0-37.0) g/dL RDW 15.5 H (11.5-14.5) % Anion Gap 13.10 H (4.00-12.00) mmol/L BUN 63.4 H (9.0-27.0) mg/dL Creatinine 9.0 H (0.6-1.5) mg/dL Est GFR (CKD-EPI) 6 L (>=60) BUN/Creatinine Ratio 7.04 L (12.00-20.00) Ratio Calcium 7.7 L (8.7-10.3) mg/dL Assessment and Plan Assessment: 1. Thrombosed right upper extremity AV graft with brachial vein thrombus status post fistulogram with mechanical thrombectomy and balloon dilation of arterial and venous anastomotic lines and venous outflow tract 2. End-stage renal disease requiring hemodialysis Plan: 1. Patient is status post fistulogram with intervention 2. Hemodialysis per nephrology 3. Rest of medical management per primary medical team Thank you for this consultation, patient is cleared from vascular surgery for discharge. The impression and plan of care has been dictated as directed. I performed a history and examination of this patient, discussed the same with the dictator. I agree with the dictator's note ,documented as a scribe. Any additional findings or plans will be noted.
[2024-02-23 10:23] LABS: Basophils # (A) 0.03 X 10*3/uL (0.00-0.10); Basophils % (A) 0.6 %; Eosinophils % (A) 2.1 %; HCT 32.2 % (39.6-50.0); HGB 10.2 g/dL (13.0-17.0); Lymphocytes # (A) 1.42 X 10*3/uL (0.90-5.00); Lymphocytes % (A) 29.3 %; MCH 28.2 pg (27.0-32.0); MCHC 31.7 g/dL (32.0-37.0); Mean Platelet Volume 10.8 FL (9.5-12.2); Monocytes # (A) 0.59 X 10*3/uL (0.20-1.00); Monocytes % (A) 12.2 %; NRBC Per 100 WBC 0 X 10*3/uL (0.00-0.01); Neutrophils # (A) 2.69 X 10*3/uL (1.80-7.70); Neutrophils % (A) 55.6 %; Platelet Count 109 X 10*3/uL (140-440); RBC 3.62 X 10*6/uL (4.40-5.60); WBC 4.84 X 10*3/uL (4.50-10.00)
[2024-02-23 10:34] LABS: Magnesium 1.9 mg/dL (1.5-2.4)
[2024-02-23] MEDS ORDERED: MIDODRINE 5 MG TAB PO PRN (10:36)
--- NOTE | 2024-02-23 11:09 | P.DS ---
Providers Date of admission: 02/21/24 14:38 Expected date of discharge: 02/23/24 Attending physician: Kurt Gama Consults: 02/21/24 13:59 Consult Physician Urgent Consulting Provider: Jarvis Rosales Consult Reason/Comments: Right AV fistula malfunction Do you want consulting provider notified?: Yes Consult Physician Urgent Consulting Provider: Jigna Harvey Consult Reason/Comments: ESRD on dialysis Do you want consulting provider notified?: Yes Primary care physician: Vasquez Morton MD Hospital Course: Discharge Diagnosis: #ESRD #Right upper extremity AV fistula malfunction status post fistulogram with percutaneous mechanical thrombectomy and balloon dilation #Acute urinary retention status post Mcduffie catheter, removed #Anemia of the chronic disease in the setting of ESRD Hospital Course: This is a 38-year-old male with a history of ESRD on hemodialysis (Tuesday, , Tuesday), hypertension and hyperlipidemia presented to the ER with malfunctioning right upper extremity AV fistula and missed hemodialysis session. Patient was admitted for hemodialysis and AV fistula thrombectomy and repair. Vascular surgery was consulted. Patient was also retaining urine during his hospital stay and had a Mcduffie catheter put in. Patient received his dialysis session soon after undergoing thrombectomy and balloon dilatation of AV fistula on 02/22/2024. Patient received another session of dialysis as per his schedule on 02/23/2024. Mcduffie catheter was removed. Patient is medically optimized and hemodynamically stable for discharge. Discharge instructions: Patient advised to follow-up with PCP and nephrology. Patient advised to continue with his home medications as directed. Patient is provided with handout on hemodialysis and AV fistula creation for hemodialysis. Vital signs reviewed. Gen: in no apparent distress, resting comfortably in bed Eyes: PERRL, no scleral injection or icterus HENT: normocephalic, atraumatic, good hearing acuity, moist mucous membranes Neck: full range of motion Resp: CTAB, no rales, rhonchi, or wheezes CVS: normal S1 and S2, no murmurs, rubs or gallops, no edema GI: soft, NTTP, ND, no hepatosplenomegaly : no suprapubic tenderness, no CVAT, mcduffie catheter is not present MSK: no clubbing, no cyanosis, no noted contractures of extremities Skin: no noted rashes, petechiae; temperature of skin is appropriate Neuro: moving all extremities without signs of weakness, CN II-XII intact Psych: cooperative, euthymic mood, insight and judgment intact A total of 33 minutes of time were spent preparing this complex discharge summary. Patient was discharged on 02/23/24 at 922. I have seen and evaluated the patient today. Discussed with the resident and agree with the residents finding and plan as documented in the resident's note. Changes highlighted in blue font. Patient Condition at Discharge: Stable Plan - Discharge Summary New Discharge Prescriptions: Continue Simvastatin [Zocor] 20 mg PO HS Latanoprost Ophth [Xalatan 0.005%] 1 drop BOTH EYES HS Brinzolamide/Brimonidine Tart [Simbrinza 1%-0.2% Eye Drops] 1 drop BOTH EYES BID Tamsulosin HCl [Flomax] 0.4 mg PO DAILY lisinopriL [Zestril] 10 mg PO SUMOWEFR Aspirin EC [Ecotrin Low Dose] 81 mg PO HS Calcium Acetate [PhosLo] 667 mg PO AC-TID Levothyroxine Sodium [Synthroid] 137 mcg PO DAILY Discharge Medication List Brinzolamide/Brimonidine Tart [Simbrinza 1%-0.2% Eye Drops] 1 drop BOTH EYES BID 04/20/17 [History] Latanoprost Ophth [Xalatan 0.005%] 1 drop BOTH EYES HS 04/20/17 [History] Simvastatin [Zocor] 20 mg PO HS 04/20/17 [History] Tamsulosin HCl [Flomax] 0.4 mg PO DAILY 04/20/17 [History] Calcium Acetate [PhosLo] 667 mg PO AC-TID 02/07/24 [History] Levothyroxine Sodium [Synthroid] 137 mcg PO DAILY 02/07/24 [History] lisinopriL [Zestril] 10 mg PO SUMOWEFR 02/07/24 [History] Aspirin EC [Ecotrin Low Dose] 81 mg PO HS 02/14/24 [History] Follow up Appointment(s)/Referral(s): Jigna Harvey MD [STAFF PHYSICIAN] - 1 Week (Per office you do not need an appointment just get your labs checked at dialysis.) Vasquez Morton MD [Primary Care Provider] - 1-2 days (The office was not available please call and schedule appointment.) Patient Instructions/Handouts: Hemodialysis (DC), Arteriovenous Fistula Creation for Hemodialysis (DC) Activity/Diet/Wound Care/Special Instructions: Please follow-up with your PCP and nephrology. Please continue with your dialysis sessions on Tuesdays and Saturdays. [facility] for internal medicine instructions below: Address: [address] [place] [id number] Discharge Disposition: HOME SELF-CARE
[2024-02-23 11:14] LABS: BUN/Creat Ratio 5.98 Ratio (12.00-20.00); Blood Urea Nitrogen 35.3 mg/dL (9.0-27.0); Calcium 7.8 mg/dL (8.7-10.3); Carbon Dioxide 30.4 mmol/L (21.6-31.8); Chloride 95 mmol/L (96-109); Glucose 96 mg/dL (70-110); Potassium 3.9 mmol/L (3.5-5.5); Sodium 136 mmol/L (135-145)
--- NOTE | 2024-02-23 12:43 | P.NPCON ---
History of Present Illness - Reason for Consult end stage renal disease - History of Present Illness patient is a 78-year-old male with end-stage renal disease on hemodialysis on Tuesday schedule. Patient was admitted to the hospital with thrombosed right forearm arm AV graft. Patient has had thrombectomy on this graft at least 2-3 times previously. He was recently started on baby aspirin as well. Status post lumpectomy and balloon dilated dictation of the anastomotic sites of the AV graft on 02/22/2024. Receiving hemodialysis and tolerating procedure well. No significant complaints. Past Medical History Past Medical History: Eye Disorder, Hyperlipidemia, Hypertension, Renal Disease, Thyroid Disorder Additional Past Medical History / Comment(s): glaucoma julio eyes,myasthenia gravis, dialysis / History of Any Multi-Drug Resistant Organisms: None Reported Additional Past Surgical History / Comment(s): thymus gland removed 1988; AV fistula right upper extremity Past Anesthesia/Blood Transfusion Reactions: No Reported Reaction Smoking Status: Never smoker - Past Family History Mother Family Medical History: Cancer Additional Family Medical History / Comment(s): lung Medications and Allergies Home Medications Medication Instructions Recorded Confirmed Type Brinzolamide/Brimonidine Tart 1 drop BOTH EYES BID 04/20/17 02/21/24 History [Simbrinza 1%-0.2% Eye Drops] Latanoprost Ophth [Xalatan 0.005%] 1 drop BOTH EYES HS 04/20/17 02/21/24 History Simvastatin [Zocor] 20 mg PO HS 04/20/17 02/21/24 History Tamsulosin HCl [Flomax] 0.4 mg PO DAILY 04/20/17 02/21/24 History Calcium Acetate [PhosLo] 667 mg PO AC-TID 02/07/24 02/21/24 History Levothyroxine Sodium [Synthroid] 137 mcg PO DAILY 02/07/24 02/21/24 History lisinopriL [Zestril] 10 mg PO SUMOWEFR 02/07/24 02/21/24 History Aspirin EC [Ecotrin Low Dose] 81 mg PO HS 02/14/24 02/21/24 History Allergies Allergy/AdvReac Type Severity Reaction Status Date / Time No Known Allergies Allergy Verified 02/21/24 13:20 Physical Exam Vitals: Vital Signs Temp Pulse Resp BP Pulse Ox 02/23/24 07:00 97.8 F 45 L 18 147/66 99 02/23/24 01:57 97.3 F L 45 L 16 156/70 99 02/22/24 19:26 97.7 F 14 125/61 Intake and Output 02/22/24 02/23/24 02/23/24 22:59 06:59 14:59 Intake Total 1200 Output Total 3200 Balance -2000 Intake: Hemodialysis 1200 Output: Urine 800 Uretheral (Marino) 400 Hemodialysis 1800 Hemodialysis Net Amount 600 Other: Voiding Method Toilet Urinal # Voids 0 patient is awake, comfortable, no acute distress. Examination of the heart S1 and S2 Examination of the lungs bilateral breath sounds are heard Abdomen is soft nontender Examination lower extremity shows no evidence of edema WORD PROCESSOR exam grossly intact Results - Lab Results Most recent lab results Calcium 7.8 mg/dL (8.7-10.3) L 02/23/24 06:13 Magnesium 1.9 mg/dL (1.5-2.4) 02/23/24 06:13 02/23/24 06:13 02/23/24 06:13 Assessment and Plan Assessment: 1. End-stage renal disease on hemodialysis on a Tuesday schedule. 2. Thrombosed right forearm AV graft with multiple previous thrombectomies. Status post thrombectomy and angioplasty of the anastomotic sites on 02/22/2024. Patient has also started aspirin. 3. CK D mineral bone disorder 4. urinary retention currently without indwelling Marino catheter. 5. Anemia of chronic disease Plan: repeat hemodialysis today and patient can be discharged postdialysis. Continue with aspirin
[2024-02-23 13:00] VITALS: PULSE 42
[2024-02-23 14:19] VITALS: BP 147/76; TEMP 36.7
== END 2024-02-23 16:24 | disposition home or self-care (01) ==
LOC: EC 11:03 → 6NMEDSUR 14:38 → 5NMEDONC 15:16
PROVIDERS: ADMIT Student in an Organized Health Care Education/Training Program; ATTEND Student in an Organized Health Care Education/Training Program
DX: I12.0 Hypertensive chronic kidney disease with stage 5 chronic kidney disease or end stage renal disease (principal); T82.510A Breakdown (mechanical) of surgically created arteriovenous fistula, initial encounter; T82.868A Thrombosis due to vascular prosthetic devices, implants and grafts, initial encounter; I82.621 Acute embolism and thrombosis of deep veins of right upper extremity; N18.6 End stage renal disease; I95.9 Hypotension, unspecified; D63.1 Anemia in chronic kidney disease; E03.9 Hypothyroidism, unspecified; E78.5 Hyperlipidemia, unspecified; M89.8X9 Other specified disorders of bone, unspecified site; N40.1 Benign prostatic hyperplasia with lower urinary tract symptoms; Z79.82 Long term (current) use of aspirin; Z79.899 Other long term (current) drug therapy; Z79.890 Hormone replacement therapy; Z99.2 Dependence on renal dialysis
CPT/HCPCS: 99284; 51798; 36415; 76937; 36905; 80053; 80048 ×2; 83735 ×2; 85025 ×3; 85610; 85730; 87340; 81001; G0378 ×4; C1894; C1769 ×3; C1725; C2623 ×2; C1757; J2003; Q9967; J3010; 90935; 96372; 99291

== ENCOUNTER 2024-04-17 09:23 | Emergency (ER) | payer MEDICARE ==
[2024-04-17 09:54] VITALS: RESP 15; TEMP 97
[2024-04-17 10:17] LABS: Basophils % (A) 1 %; Eosinophils # (A) 0.1 k/uL (0-0.7); Eosinophils % (A) 2 %; HCT 39.6 % (39.0-53.0); HGB 12.9 gm/dL (13.0-17.5); Hypochromasia Slight; Lymphocytes # (A) 0.9 k/uL (1.0-4.8); Lymphocytes % (A) 27 %; MCH 29.1 pg (25.0-35.0); MCHC 32.4 g/dL (31.0-37.0); MCV 89.9 fL (80.0-100.0); Mean Platelet Volume 7.6; Monocytes # (A) 0.4 k/uL (0-1.0); Monocytes % (A) 13 %; Neutrophils # (A) 1.7 k/uL (1.3-7.7); Neutrophils % (A) 53 %; RBC 4.41 m/uL (4.30-5.90); RDW 15.2 % (11.5-15.5); WBC 3.2 k/uL (3.8-10.6)
[2024-04-17 10:34] LABS: Prothrombin Time 11.2 sec (10.0-12.5)
[2024-04-17 10:41] LABS: ALT 10 U/L (4-49); AST 25 U/L (17-59); African American GFR (CKD) 9 (>60 ml/min/1.73 sqM); Albumin 4.1 g/dL (3.5-5.0); Alkaline Phosphatase 71 U/L (38-126); Anion Gap 11 mmol/L; Blood Urea Nitrogen 51 mg/dL (9-20); Calcium 7.9 mg/dL (8.4-10.2); Carbon Dioxide 31 mmol/L (22-30); Chloride 98 mmol/L (98-107); Glucose 89 mg/dL (74-99); Magnesium 2.2 mg/dL (1.6-2.3); Non-African American GFR(CKD) 8 (>60 ml/min/1.73 sqM); Potassium 3.7 mmol/L (3.5-5.1); Sodium 140 mmol/L (137-145); Total Bilirubin 0.4 mg/dL (0.2-1.3); Total Protein 7.9 g/dL (6.3-8.2)
[2024-04-17 10:50] LABS: Platelet Count 86 k/uL (150-450)
--- NOTE | 2024-04-17 11:30 | XR ---
EXAMINATION TYPE: XR chest 2V DATE OF EXAM: 04/17/2024 11:07 AM COMPARISON: 10/01/2023 CLINICAL INDICATION: Male, 78 years old with history of dysrhythmia, , TECHNIQUE: AP and lateral views FINDINGS: Heart mildly enlarged. Mild vascular congestion and interstitial prominence may in part be technical due to body habitus and portable technique. Median sternotomy wires are present. No antonio consolidati on or pleural effusion. IMPRESSION: Mild cardiomegaly. Correlate to exclude mild pulmonary vascular congestion. No other acute process se en. [facility], Workstation: [facility], 04/17/2024 11:28 AM
[2024-04-17 11:58] VITALS: BP 142/69; PULSE 45
--- NOTE | 2024-04-17 12:07 | ED ---
General Adult HPI - General Chief complaint: Syncope Stated complaint: near syncope Time Seen by Provider: 04/17/24 09:40 Source: patient, EMS, RN notes reviewed, old records reviewed Mode of arrival: EMS Limitations: no limitations - History of Present Illness Initial comments: Patient is a 78-year-old male who presents emergency department from dialysis over concern for near syncopal episode. Concerned that they took off too much fluid during dialysis. Access site is in the right forearm. States he was in the middle of dialysis when his blood pressure went low as well as his heart rate. States this has happened regularly in the past. States he usually runs low for his heart rate anywhere from 40 to 50s. Currently has no symptoms. Presents for further evaluation at this time. Denies chest pain, shortness of breath, abdominal pain, nausea, vomiting. No fevers or chills. No significant cardiac history per the patient. States that he is usually bradycardic. - Related Data Home Medications Medication Instructions Recorded Confirmed Brinzolamide/Brimonidine Tart 1 drop BOTH EYES BID 04/20/17 04/17/24 [Simbrinza 1%-0.2% Eye Drops] Latanoprost Ophth [Xalatan 0.005%] 1 drop BOTH EYES HS 04/20/17 04/17/24 Simvastatin [Zocor] 20 mg PO HS 04/20/17 04/17/24 Tamsulosin HCl [Flomax] 0.4 mg PO DAILY 04/20/17 04/17/24 Calcium Acetate [PhosLo] 667 mg PO AC-TID 02/07/24 04/17/24 Levothyroxine Sodium [Synthroid] 137 mcg PO DAILY 02/07/24 04/17/24 lisinopriL [Zestril] 10 mg PO SUMOWEFR 02/07/24 04/17/24 Aspirin EC [Ecotrin Low Dose] 81 mg PO HS 02/14/24 04/17/24 Allergies Allergy/AdvReac Type Severity Reaction Status Date / Time No Known Allergies Allergy Verified 04/17/24 11:11 Review of Systems ROS Statement: Those systems with pertinent positive or pertinent negative responses have been documented in the HPI. ROS Other: All systems not noted in ROS Statement are negative. Past Medical History Past Medical History: Eye Disorder, Hyperlipidemia, Hypertension, Renal Disease, Thyroid Disorder Additional Past Medical History / Comment(s): glaucoma julio eyes,myasthenia gravis, dialysis Tu//Sat History of Any Multi-Drug Resistant Organisms: None Reported Additional Past Surgical History / Comment(s): thymus gland removed 1988; AV fistula right upper extremity Past Anesthesia/Blood Transfusion Reactions: No Reported Reaction Past Psychological History: No Psychological Hx Reported Smoking Status: Never smoker - Past Family History Mother Family Medical History: Cancer Additional Family Medical History / Comment(s): lung General Exam Limitations: no limitations Course Vital Signs 04/17/24 04/17/24 04/17/24 09:50 09:54 11:43 Temperature 97.0 F L Pulse Rate 40 L 42 L 45 L Respiratory 15 15 15 Rate Blood Pressure 144/67 142/69 O2 Sat by Pulse 100 100 Oximetry Medical Decision Making - Medical Decision Making Was pt. sent in by a medical professional or institution (JOSEE Villalobos, RESIDENTIAL FINISH CARPENTER, urgent ca re, hospital, or custodial...) When possible be specific @ -Sent from dialysis for bradycardia, transient hypotension and near syncope. Did you speak to anyone other than the patient for history (EMS, parent, family, police, friend...)? What history was obtained from this source @ -No Did you review nursing and triage notes (agree or disagree)? Why? @ -I reviewed and agree with nursing and triage notes Were old charts reviewed (outside hosp., previous admission, EMS record, old EKG, old radiological studies, urgent care reports/EKG's, custodial records)? Report findings @ -Reviewed prior EKG from February 2024 which once again showed patient was bradycardic at that time. Differential Diagnosis (chest pain, altered mental status, abdominal pain women, abdominal pain men, vaginal bleeding, weakness, fever, dyspnea, syncope, headache, dizziness, GI bleed, back pain, seizure, CVA, palpatations, mental health, musculoskeletal)? @ -Arrhythmia, electrolyte abnormality, chronic bradycardia, near syncope. This list is not all inclusive. EKG interpreted by me (3pts min.). @ -As above X-rays interpreted by me (1pt min.). @ -Chest x-ray shows possible mild pulmonary vascular congestion but no obvious other acute process. CT interpreted by me (1pt min.). @ -None done U/S interpreted by me (1pt. min.). @ -None done What testing was considered but not performed or refused? (CT, X-rays, U/S, labs)? Why? @ -None What meds were considered but not given or refused? Why? @ -None Did you discuss the management of the patient with other professionals (professionals i.e. , PA, RESIDENTIAL FINISH CARPENTER, lab, RT, psych nurse, hospice social worker, cardiology physician, teacher, senior escrow officer, pillowcase maker)? Give summary @ -Discussed management with Dr. Snowden and NATHALIE High of cardiology who are rounding in the emergency department and reviewed the EKG with myself and evaluate the patient. They are in agreement with plan for basic labs and workup. Patient is asymptomatic and has a history of bradycardia in the 40s. Patient has remained bradycardic between 40 and 55 throughout her conversation and evaluation. Will continue to monitor but obtain basic labs and if normal patient can be discharged home with close follow-up as this does appear to be chronic. Is not a candidate for pacemaker at this time. Was smoking cessation discussed for >3mins.? @ -No Was critical care preformed (if so, how long)? @ -No Were there social determinants of health that impacted care today? How? (Homelessness, low income, unemployed, alcoholism, drug addiction, transportation, low edu. Level, literacy, decrease access to med. care, half-way, rehab)? @ -No Was there de-escalation of care discussed even if they declined (Discuss DNR or withdrawal of care, Hospice)? DNR status @ -No What co-morbidities impacted this encounter? (DM, HTN, Smoking, COPD, CAD, Cancer, CVA, ARF, Chemo, Hep., AIDS, mental health diagnosis, sleep apnea, morbid obesity)? @ -None Was patient admitted / discharged? Hospital course, mention meds given and route, prescriptions, significant lab abnormalities, going to OR and other pertinent info. @ -Based on the patient's presentation and physical exam, presents with acute on chronic bradycardia. EKG does show sinus bradycardia and cardiology was rounding at that time and reviewed the EKG with myself. They evaluate the patient. Discussed management with Dr. Snowden and NATHALIE High of cardiology who are rounding in the emergency department and reviewed the EKG with myself and evaluate the patient. They are in agreement with plan for basic labs and workup. Patient is asymptomatic and has a history of bradycardia in the 40s. Patient has remained bradycardic between 40 and 55 throughout her conversation and evaluation. Will continue to monitor but obtain basic labs and if normal patient can be discharged home with close follow-up as this does appear to be chronic. Is not a candidate for pacemaker at this time. Vitals within acceptable limits other than the bradycardia which is chronic for the patient. Labs returned remarkable for chronic thrombocytopenia, elevated BUN and creatinine in the setting of ESRD on hemodialysis. Labs otherwise within acceptable limits. I discussed results with the patient. He remains asymptomatic throughout his stay. We will have dialysis nurse remove the dialysis connections and discharge the patient at this time.Acute, or with strict return precautions and follow-up with PCP in the next 1 to 3 days. Patient was in agreement this plan. I instructed the patient to follow up with their PCP in the next 1-3 days. I explained that the patient should return to the emergency department if they experience any worsening symptoms. Strict return precautions were discussed with the patient. The patient expressed understanding of these instructions. I answered all questions that the patient had. The patient was discharged home in good condition with their prescriptions and follow up information. Undiagnosed new problem with uncertain prognosis? @ -No Drug Therapy requiring intensive monitoring for toxicity (Heparin, Nitro, Insulin, Cardizem)? @ -No Were any procedures done? @ -No Diagnosis/symptom? @ -Near syncope, bradycardia .Chronic, or Acute on Chronic? @ -Acute on chronic Uncomplicated (without systemic symptoms) or Complicated (systemic symptoms)? @ -Uncomplicated Side effects of treatment? @ -No Exacerbation, Progression, or Severe Exacerbation? @ -No Poses a threat to life or bodily function? How? (Chest pain, USA, SC, pneumonia, PE, COPD, DKA, ARF, appy, cholecystitis, CVA, Diverticulitis, Homicidal, Suicidal, threat to staff... and all critical care pts) @ -Unlikely at this time - Lab Data Result diagrams: 04/17/24 09:54 04/17/24 09:54 Lab Results 04/17/24 04/17/24 04/17/24 Range/Units 09:54 09:54 09:54 WBC 3.2 L (3.8-10.6) k/uL RBC 4.41 (4.30-5.90) m/uL Hgb 12.9 L (13.0-17.5) gm/dL Hct 39.6 (39.0-53.0) % MCV 89.9 (80.0-100.0) fL MCH 29.1 (25.0-35.0) pg MCHC 32.4 (31.0-37.0) g/dL RDW 15.2 (11.5-15.5) % Plt Count 86 L (150-450) k/uL MPV 7.6 Neutrophils % 53 % Lymphocytes % 27 % Monocytes % 13 % Eosinophils % 2 % Basophils % 1 % Neutrophils # 1.7 (1.3-7.7) k/uL Lymphocytes # 0.9 L (1.0-4.8) k/uL Monocytes # 0.4 (0-1.0) k/uL Eosinophils # 0.1 (0-0.7) k/uL Basophils # 0.0 (0-0.2) k/uL Manual Slide Review Performed Hypochromasia Slight PT 11.2 (10.0-12.5) sec INR 1.0 (<1.2) APTT 25.0 (22.0-30.0) sec Sodium 140 (137-145) mmol/L Potassium 3.7 (3.5-5.1) mmol/L Chloride 98 (98-107) mmol/L Carbon Dioxide 31 H (22-30) mmol/L Anion Gap 11 mmol/L BUN 51 H (9-20) mg/dL Creatinine 6.43 H (0.66-1.25) mg/dL Est GFR (CKD-EPI)AfAm 9 (>60 ml/min/1.73 sqM) Est GFR (CKD-EPI)NonAf 8 (>60 ml/min/1.73 sqM) Glucose 89 (74-99) mg/dL Calcium 7.9 L (8.4-10.2) mg/dL Magnesium 2.2 (1.6-2.3) mg/dL Total Bilirubin 0.4 (0.2-1.3) mg/dL AST 25 (17-59) U/L ALT 10 (4-49) U/L Alkaline Phosphatase 71 (38-126) U/L Total Protein 7.9 (6.3-8.2) g/dL Albumin 4.1 (3.5-5.0) g/dL TSH 0.701 (0.465-4.680) mIU/L - EKG Data -: EKG Interpreted by Me EKG Comments: 12-lead Electrocardiogram Interpretation Note EKG was reviewed and interpreted by myself. 12-lead ECG performed at 0930 is interpreted by me as revealing sinus bradycardia at a rate of 36 beats per minute. [place] is normal. MS interval is 256 ms, QRS durations 106 ms, QTc is 463 ms.. There were no ST or T wave abnormalities to suggest myocardial ischemia or injury. R wave progression across the precordium was satisfactory. By my interpretation this EKG is non-diagnostic for acute ischemia. Disposition Clinical Impression: Bradycardia, Near syncope Disposition: HOME SELF-CARE Condition: Good Additional Instructions: You likely had a near syncopal episode after having too much fluid drawn off at dialysis. Your bradycardia is chronic and seen on prior visits. You are stable for discharge home at this time. Follow-up with your flasher adjuster and PCP in the next 1 to 3 days. Return if any worsening symptoms. Be sure to follow-up with your dialysis appointment on . Is patient prescribed a controlled substance at d/c from ED?: No Referrals: Vasquez Morton MD [Primary Care Provider] - 1-2 days Time of Disposition: 12:00
--- NOTE | 2024-04-17 14:32 | P.CRDCN ---
History of Present Illness History of present illness: HISTORY OF PRESENT ILLNESS: This is a 78-year-old male with a past medical history significant for end-stage renal disease on hemodialysis, valvular heart disease, and bradycardia. Patient follows in the office with Dr. Roman. We have been asked to see the patient in consultation for bradycardia. Patient examined at the bedside. Patient presented to the hospital from hemodialysis. Patient states while at hemodialysis he began to feel unwell which happens when they take off too much fluid. The patient states that his blood pressure became low and also his heart rate. Apparently they gave him back 750 cc of fluid and his symptoms have improved. The patient currently denies any chest pain or pressure. He denies any shortness of breath. Denies any dizziness or lightheadedness. EKG reviewed revealing bradycardia with no signs of acute ischemia. EKG unchanged from February 2024 revealing bradycardia with a heart rate of 42. The patient is not prescribed any AV gustavo blocking agents. Echocardiogram completed in December 2023 revealed normal EF, mild to moderate MR, mild TR, mild to moderate AR. REVIEW OF SYSTEMS: At the time of my exam: CONSTITUTIONAL: Denies fever or chills. HEENT: Denies blurred vision, vision changes, or eye pain. Denies hemoptysis CARDIOVASCULAR: Denies chest pain. Denies orthopnea. Denies PND. Denies palpitations RESPIRATORY: Denies shortness of breath. GASTROINTESTINAL: Denies abdominal pain. Denies nausea or vomiting. HEMATOLOGIC: Denies bleeding disorders. GENITOURINARY: Denies any blood in urine. SKIN: Denies pruitis. Denies rash. PHYSICAL EXAM: VITAL SIGNS: Reviewed. GENERAL: Well-developed in no acute distress. HEENT: Head is normocephalic. Pupils are equal, round. Sclerae anicteric. Mucous membranes of the mouth are moist. Neck supple. No JVD or thyromegaly LUNGS: Respirations even and unlabored. Lungs essentially clear to auscultation bilaterally. HEART: Bradycardic. Regular rate and rhythm. S1 and S2 heard. ABDOMEN: Soft. Nondistended. Nontender. EXTREMITIES: Normal range of motion. No clubbing or cyanosis. Peripheral pulses intact. No lower extremity edema NEUROLOGIC: Awake and alert. Oriented x 3. ASSESSMENT: Hypotension, secondary to hemodialysis Chronic bradycardia without syncope End-stage renal disease on hemodialysis Valvular heart disease PLAN: Patient seen and examined in the emergency room at the request of Dr. White. Patient symptoms appear to be secondary to too much fluid being removed at hemodialysis. Patient was given back 750 cc in hemodialysis per nursing and his symptoms have since resolved. Patient with chronic bradycardia. However, patient reports improvement with his heartrate into the 90-100s with exercise. Per Dr. White, patient is not being admitted and will be discharged home today. Nurse practitioner note has been reviewed by physician. Signing provider agrees with the documented findings, assessment, and plan of care documented by [employer]ER[employer] ARRANGER as a scribe. Past Medical History Past Medical History: Eye Disorder, Hyperlipidemia, Hypertension, Renal Disease, Thyroid Disorder Additional Past Medical History / Comment(s): glaucoma julio eyes,myasthenia gravis, dialysis //Tue History of Any Multi-Drug Resistant Organisms: None Reported Additional Past Surgical History / Comment(s): thymus gland removed 1988; AV fistula right upper extremity Past Anesthesia/Blood Transfusion Reactions: No Reported Reaction Past Psychological History: No Psychological Hx Reported Smoking Status: Never smoker - Past Family History Mother Family Medical History: Cancer Additional Family Medical History / Comment(s): lung Medications and Allergies Home Medications Medication Instructions Recorded Confirmed Type Brinzolamide/Brimonidine Tart 1 drop BOTH EYES BID 04/20/17 04/17/24 History [Simbrinza 1%-0.2% Eye Drops] Latanoprost Ophth [Xalatan 0.005%] 1 drop BOTH EYES HS 04/20/17 04/17/24 History Simvastatin [Zocor] 20 mg PO HS 04/20/17 04/17/24 History Tamsulosin HCl [Flomax] 0.4 mg PO DAILY 04/20/17 04/17/24 History Calcium Acetate [PhosLo] 667 mg PO AC-TID 02/07/24 04/17/24 History Levothyroxine Sodium [Synthroid] 137 mcg PO DAILY 02/07/24 04/17/24 History lisinopriL [Zestril] 10 mg PO SUMOWEFR 02/07/24 04/17/24 History Aspirin EC [Ecotrin Low Dose] 81 mg PO HS 02/14/24 04/17/24 History Allergies Allergy/AdvReac Type Severity Reaction Status Date / Time No Known Allergies Allergy Verified 04/17/24 11:11 Physical Exam Vitals: Vital Signs Temp Pulse Resp BP Pulse Ox 04/17/24 11:43 45 L 15 142/69 100 04/17/24 09:54 42 L 15 04/17/24 09:50 97.0 F L 40 L 15 144/67 100 Intake and Output 04/16/24 04/17/24 04/17/24 22:59 06:59 14:59 Other: Weight 94.801 kg Results 04/17/24 09:54 04/17/24 09:54 Cardiac Enzymes 04/17/24 Range/Units 09:54 AST 25 (17-59) U/L Coagulation 04/17/24 Range/Units 09:54 PT 11.2 (10.0-12.5) sec APTT 25.0 (22.0-30.0) sec CBC 04/17/24 Range/Units 09:54 WBC 3.2 L (3.8-10.6) k/uL RBC 4.41 (4.30-5.90) m/uL Hgb 12.9 L (13.0-17.5) gm/dL Hct 39.6 (39.0-53.0) % Plt Count 86 L (150-450) k/uL Comprehensive Metabolic Panel 04/17/24 Range/Units 09:54 Sodium 140 (137-145) mmol/L Potassium 3.7 (3.5-5.1) mmol/L Chloride 98 (98-107) mmol/L Carbon Dioxide 31 H (22-30) mmol/L BUN 51 H (9-20) mg/dL Creatinine 6.43 H (0.66-1.25) mg/dL Glucose 89 (74-99) mg/dL Calcium 7.9 L (8.4-10.2) mg/dL AST 25 (17-59) U/L ALT 10 (4-49) U/L Alkaline Phosphatase 71 (38-126) U/L Total Protein 7.9 (6.3-8.2) g/dL Albumin 4.1 (3.5-5.0) g/dL Intake and Output 04/16/24 04/17/24 04/17/24 22:59 06:59 14:59 Other: Weight 94.801 kg Patient Weight 04/18/24 06:59 Weight 94.801 kg 04/17/24 09:54 04/17/24 09:54
== END 2024-04-17 12:59 | disposition home or self-care (01) ==
LOC: EC 09:23
DX: R00.1 Bradycardia, unspecified (principal); R55 Syncope and collapse
CPT/HCPCS: 36415; 71046; 80053; 83735; 84443; 85025; 85610; 85730; 93005; 99285

== ENCOUNTER → 2024-05-08 | Outpatient (CLI) | payer MEDICARE ==
[2024-05-08 17:11] LABS: BUN/Creat Ratio 5.25 Ratio (12.00-20.00); Blood Urea Nitrogen 27.8 mg/dL (9.0-27.0); Calcium 8.9 mg/dL (8.7-10.3); Carbon Dioxide 32.9 mmol/L (21.6-31.8); Chloride 96 mmol/L (96-109); Glucose 118 mg/dL (70-110); Potassium 4.3 mmol/L (3.5-5.5); Sodium 141 mmol/L (135-145); T4, Free (Free Thyroxine) 1.54 ng/dL (0.80-1.80)
== END | disposition home or self-care (01) ==
LOC: LABWHC1 12:08
PROVIDERS: ATTEND Internal Medicine
DX: C73 Malignant neoplasm of thyroid gland (principal); E03.9 Hypothyroidism, unspecified
CPT/HCPCS: 36415; 80048; 84432; 84439; 84443; 86800

== ENCOUNTER 2024-06-12 09:48 | Observation (INO) | payer MEDICARE ==
--- NOTE | 2024-06-12 10:27 | ED ---
Recheck HPI - General Chief Complaint: Recheck/Abnormal Lab/Rx Stated Complaint: right arm port for dialysis clogged Time Seen by Provider: 06/12/24 10:24 Source: patient, RN notes reviewed Mode of arrival: ambulatory Limitations: no limitations - History of Present Illness Initial Comments: 78-year-old male presenting for right AV fistula malfunction. Reports he was not able to undergo hemodialysis today due to issue with the fistula. Last successful dialysis was Tuesday. Patient undergoes hemodialysis Tuesdays, , and Saturdays. Denies discomfort to the area. No other complaints today. Denies blood thinners. States the graft was placed by Dr. Talavera. - Related Data Home Medications Medication Instructions Recorded Confirmed Brinzolamide/Brimonidine Tart 1 drop BOTH EYES BID 04/20/17 04/17/24 [Simbrinza 1%-0.2% Eye Drops] Latanoprost Ophth [Xalatan 0.005%] 1 drop BOTH EYES HS 04/20/17 04/17/24 Simvastatin [Zocor] 20 mg PO HS 04/20/17 04/17/24 Tamsulosin HCl [Flomax] 0.4 mg PO DAILY 04/20/17 04/17/24 Calcium Acetate [PhosLo] 667 mg PO AC-TID 02/07/24 04/17/24 Levothyroxine Sodium [Synthroid] 137 mcg PO DAILY 02/07/24 04/17/24 lisinopriL [Zestril] 10 mg PO SUMOWEFR 02/07/24 04/17/24 Aspirin EC [Ecotrin Low Dose] 81 mg PO HS 02/14/24 04/17/24 Allergies Allergy/AdvReac Type Severity Reaction Status Date / Time No Known Allergies Allergy Verified 06/12/24 14:50 Review of Systems ROS Statement: Those systems with pertinent positive or pertinent negative responses have been documented in the HPI. ROS Other: All systems not noted in ROS Statement are negative. Past Medical History Past Medical History: Eye Disorder, Hyperlipidemia, Hypertension, Renal Disease, Thyroid Disorder Additional Past Medical History / Comment(s): glaucoma julio eyes,myasthenia gravis, dialysis //Tue History of Any Multi-Drug Resistant Organisms: None Reported Additional Past Surgical History / Comment(s): thymus gland removed 1988; AV fistula right upper extremity Past Anesthesia/Blood Transfusion Reactions: No Reported Reaction Past Psychological History: No Psychological Hx Reported Smoking Status: Never smoker - Past Family History Mother Family Medical History: Cancer Additional Family Medical History / Comment(s): lung General Exam Limitations: no limitations General appearance: alert, in no apparent distress Head exam: Present: atraumatic, normocephalic, normal inspection Eye exam: Present: normal appearance, PERRL, EOMI. Absent: scleral icterus, conjunctival injection, periorbital swelling Cardiovascular Exam: Present: regular rate, normal rhythm, normal heart sounds. Absent: systolic murmur, diastolic murmur, rubs, gallop, clicks GI/Abdominal exam: Present: soft, normal bowel sounds. Absent: distended, tenderness, guarding, rebound, rigid Right Elbow exam: Present: normal inspection, full ROM. Absent: tenderness, swelling Forearm Wrist exam: Present: normal inspection (AV fistula palpated in ventral right forearm), full ROM. Absent: tenderness, swelling Vascular: Present: normal capillary refill, radial pulse. Absent: vascular compromise Neurological exam: Present: alert, oriented X3 Psychiatric exam: Present: normal affect, normal mood Skin exam: Present: warm, dry, intact, normal color. Absent: rash Course Vital Signs 06/12/24 06/12/24 09:50 11:45 Temperature 97.4 F L 97.4 F L Pulse Rate 54 L 80 Respiratory 20 18 Rate Blood Pressure 191/84 153/77 O2 Sat by Pulse 100 100 Oximetry Medical Decision Making - Medical Decision Making Was pt. sent in by a medical professional or institution (, PA, POLITICAL SCIENCE RESEARCH ASSISTANT, urgent care, hospital, or custodial...) When possible be specific @ -No Did you speak to anyone other than the patient for history (EMS, parent, family, police, friend...)? What history was obtained from this source @ -No Did you review nursing and triage notes (agree or disagree)? Why? @ -I reviewed and agree with nursing and triage notes Were old charts reviewed (outside hosp., previous admission, EMS record, old EKG, old radiological studies, urgent care reports/EKG's, custodial records)? Report findings @ -No old charts were reviewed Differential Diagnosis (chest pain, altered mental status, abdominal pain women, abdominal pain men, vaginal bleeding, weakness, fever, dyspnea, syncope, headach e, dizziness, GI bleed, back pain, seizure, CVA, palpatations, mental health, musculoskeletal)? @ -Not applicable EKG interpreted by me (3pts min.). @ -As above X-rays interpreted by me (1pt min.). @ -None done CT interpreted by me (1pt min.). @ -None done U/S interpreted by me (1pt. min.). @ -None done What testing was considered but not performed or refused? (CT, X-rays, U/S, labs)? Why? @ -None What meds were considered but not given or refused? Why? @ -None Did you discuss the management of the patient with other professionals (professionals i.e. , PA, POLITICAL SCIENCE RESEARCH ASSISTANT, lab, RT, psych nurse, vp digital marketing social media and crm, web consultant, teacher, special assets officer, caseworker)? Give summary @ -I spoke with Dr. Gama from [facility] [place] who accepts admission for AV fistula malfunction with consultation to nephrology and vascular services Was smoking cessation discussed for >3mins.? @ -No Was critical care preformed (if so, how long)? @ -No Were there social determinants of health that impacted care today? How? (Ho melessness, low income, unemployed, alcoholism, drug addiction, transportation, low edu. Level, literacy, decrease access to med. care, custodial, rehab)? @ -No Was there de-escalation of care discussed even if they declined (Discuss DNR or withdrawal of care, Hospice)? DNR status @ -No What co-morbidities impacted this encounter? (DM, HTN, Smoking, COPD, CAD, Cancer, CVA, ARF, Chemo, Hep., AIDS, mental health diagnosis, sleep apnea, morbid obesity)? @ -End-stage renal disease on hemodialysis Was patient admitted / discharged? Hospital course, mention meds given and route, prescriptions, significant lab abnormalities, going to OR and other pertinent info. @ -Admitted. 78-year-old male with history of end-stage renal disease on hemodialysis presenting for right AV fistula malfunction. Last successful dialysis was Tuesday. Patient is asymptomatic. Patient is bradycardic however this appears to be chronic in nature. Electrolytes within acceptable limits, creatinine is elevated at 10.29. Patient will be admitted to medicine with nephrology and vascular consultations. Case was discussed with ED attending Dr. Hilton. Undiagnosed new problem with uncertain prognosis? @ -No Drug Therapy requiring intensive monitoring for toxicity (Heparin, Nitro, Insulin, Cardizem)? @ -No Were any procedures done? @ -No Diagnosis/symptom? @ -Dialysis AV fistula malfunction Acute, or Chronic, or Acute on Chronic? @ -Acute Uncomplicated (without systemic symptoms) or Complicated (systemic symptoms)? @ -Uncomplicated Side effects of treatment? @ -No Exacerbation, Progression, or Severe Exacerbation? @ -No Poses a threat to life or bodily function? How? (Chest pain, [place], [place], pneumonia, PE, COPD, DKA, ARF, appy, cholecystitis, CVA, Diverticulitis, Homicidal, Suicidal, threat to staff... and all critical care pts) @ -Yes - Lab Data Result diagrams: 06/12/24 11:23 06/12/24 12:46 Lab Results 06/12/24 06/12/24 06/12/24 Range/Units 11:23 11:23 12:46 WBC 4.5 (3.8-10.6) k/uL RBC 4.12 L (4.30-5.90) m/uL Hgb 11.1 L (13.0-17.5) gm/dL Hct 35.8 L (39.0-53.0) % MCV 86.9 (80.0-100.0) fL MCH 27.0 (25.0-35.0) pg MCHC 31.1 (31.0-37.0) g/dL RDW 15.3 (11.5-15.5) % Plt Count 140 L D (150-450) k/uL MPV 7.7 Neutrophils % 61 % Lymphocytes % 23 % Monocytes % 10 % Eosinophils % 2 % Basophils % 1 % Neutrophils # 2.7 (1.3-7.7) k/uL Lymphocytes # 1.1 (1.0-4.8) k/uL Monocytes # 0.5 (0-1.0) k/uL Eosinophils # 0.1 (0-0.7) k/uL Basophils # 0.0 (0-0.2) k/uL PT 10.8 (10.0-12.5) sec INR 1.0 (<1.2) APTT 21.3 L (22.0-30.0) sec Sodium 140 (137-145) mmol/L Potassium 4.4 (3.5-5.1) mmol/L Chloride 100 (98-107) mmol/L Carbon Dioxide 28 (22-30) mmol/L Anion Gap 12 mmol/L BUN 94 H (9-20) mg/dL Creatinine 10.29 H* (0.66-1.25) mg/dL Est GFR (CKD-EPI)AfAm 5 (>60 ml/min/1.73 sqM) Est GFR (CKD-EPI)NonAf 4 (>60 ml/min/1.73 sqM) Glucose 82 (74-99) mg/dL Calcium 8.5 (8.4-10.2) mg/dL Total Bilirubin 0.4 (0.2-1.3) mg/dL AST 16 L (17-59) U/L ALT 11 (4-49) U/L Alkaline Phosphatase 66 (38-126) U/L Total Protein 7.0 (6.3-8.2) g/dL Albumin 3.6 (3.5-5.0) g/dL - EKG Data -: EKG Interpreted by [facility] EKG Comments: EKG reveals sinus bradycardia with prolonged VT interval. Ventricular rate 41 bpm, VT interval not calculated, QRS duration 98, QT/QTc 537/475 Disposition Clinical Impression: Dialysis AV fistula malfunction Disposition: ADMITTED IP TO THIS HOSP Referrals: Vasquez Morton MD [Primary Care Provider] - 1-2 days Time of Disposition: 14:28
[2024-06-12 11:58] LABS: Prothrombin Time 10.8 sec (10.0-12.5)
[2024-06-12 12:14] LABS: Partial Thromboplastin Time 21.3 sec (22.0-30.0)
[2024-06-12 12:17] LABS: Basophils % (A) 1 %; Eosinophils # (A) 0.1 k/uL (0-0.7); Eosinophils % (A) 2 %; HCT 35.8 % (39.0-53.0); HGB 11.1 gm/dL (13.0-17.5); Lymphocytes # (A) 1.1 k/uL (1.0-4.8); Lymphocytes % (A) 23 %; MCHC 31.1 g/dL (31.0-37.0); MCV 86.9 fL (80.0-100.0); Mean Platelet Volume 7.7; Monocytes # (A) 0.5 k/uL (0-1.0); Monocytes % (A) 10 %; Neutrophils # (A) 2.7 k/uL (1.3-7.7); Neutrophils % (A) 61 %; RBC 4.12 m/uL (4.30-5.90); RDW 15.3 % (11.5-15.5); WBC 4.5 k/uL (3.8-10.6)
[2024-06-12 12:22] LABS: Platelet Count 140 k/uL (150-450)
[2024-06-12 13:29] LABS: ALT 11 U/L (4-49); AST 16 U/L (17-59); African American GFR (CKD) 5 (>60 ml/min/1.73 sqM); Albumin 3.6 g/dL (3.5-5.0); Alkaline Phosphatase 66 U/L (38-126); Anion Gap 12 mmol/L; Blood Urea Nitrogen 94 mg/dL (9-20); Calcium 8.5 mg/dL (8.4-10.2); Carbon Dioxide 28 mmol/L (22-30); Chloride 100 mmol/L (98-107); Glucose 82 mg/dL (74-99); Non-African American GFR(CKD) 4 (>60 ml/min/1.73 sqM); Potassium 4.4 mmol/L (3.5-5.1); Sodium 140 mmol/L (137-145); Total Bilirubin 0.4 mg/dL (0.2-1.3)
[2024-06-12] MEDS ORDERED: NALOXONE 0.4 MG/ML 1 ML VIAL IV PRN (14:24)
[2024-06-12] MEDS ORDERED: ACETAMINOPHEN TAB 325 MG TAB PO PRN (14:24)
[2024-06-12] MEDS ORDERED: CALCIUM ACETATE 667 MG TAB PO PRN (15:21)
--- NOTE | 2024-06-12 15:51 | P.GSCN ---
History of Present Illness Consult date: 06/12/24 Reason for Consult: Malfunctioning AV graft Requesting physician: Andra East History of present illness: 78-year-old male with a history of end-stage renal disease on hemodialysis with right upper extremity AV graft placed by Dr. Bone in July 2023 is presenting to the emergency department for malfunctioning AV graft. Patient undergoes dialysis Saturdays. States he went on Tuesday and had no problem getting dialysis. He went to dialysis today had no palpable thrill or bruit and he was sent into the emergency department for further evaluation. Patient states he noted no palpable thrill since Tuesday. He has a history of thrombosed right upper extremity dialysis graft. He has undergone mechanical thrombectomy and balloon dilation as well as open thrombectomy. Last fistulogram with mechanical thrombectomy and balloon dilation was in February 2024. He denies any shortness of breath or chest pain. Denies any pain in the right upper extremity. Sodium 140 potassium 4.4 BUN 94 creatinine 10.29. Review of Systems A 14 point review systems was completed all pertinent positives and negatives as stated in the HPI. Past Medical History Past Medical History: Eye Disorder, Hyperlipidemia, Hypertension, Renal Disease, Thyroid Disorder Additional Past Medical History / Comment(s): glaucoma julio eyes,myasthenia gravis, dialysis //Tue History of Any Multi-Drug Resistant Organisms: None Reported Additional Past Surgical History / Comment(s): thymus gland removed 1988; AV fistula right upper extremity Past Anesthesia/Blood Transfusion Reactions: No Reported Reaction Past Psychological History: No Psychological Hx Reported Smoking Status: Never smoker - Past Family History Mother Family Medical History: Cancer Additional Family Medical History / Comment(s): lung Medications and Allergies Home Medications Medication Instructions Recorded Confirmed Type Brinzolamide/Brimonidine Tart 1 drop BOTH EYES BID 04/20/17 06/12/24 History [Simbrinza 1%-0.2% Eye Drops] Latanoprost Ophth [Xalatan 0.005%] 1 drop BOTH EYES HS 04/20/17 06/12/24 History Simvastatin [Zocor] 20 mg PO HS 04/20/17 06/12/24 History Tamsulosin HCl [Flomax] 0.4 mg PO HS 04/20/17 06/12/24 History Calcium Acetate [PhosLo] 1,334 mg PO TID-W/MEALS 02/07/24 06/12/24 History Levothyroxine Sodium [Synthroid] 137 mcg PO DAILY 02/07/24 06/12/24 History lisinopriL [Zestril] 10 mg PO SUMOWEFR 02/07/24 06/12/24 History Aspirin EC [Ecotrin] 325 mg PO DAILY 06/12/24 06/12/24 History Calcium Acetate [Phoslo] 667 mg PO DAILY PRN 06/12/24 06/12/24 History Allergies Allergy/AdvReac Type Severity Reaction Status Date / Time No Known Allergies Allergy Verified 06/12/24 14:50 Surgical - Exam Vital Signs Temp Pulse Resp BP Pulse Ox 97.4 F L 54 L 20 191/84 100 06/12/24 09:50 06/12/24 09:50 06/12/24 09:50 06/12/24 09:50 06/12/24 09:50 General appearance: The patient is alert, oriented, appears in no acute distress. HET: Head is normocephalic and atraumatic. Neck: Supple. Heart: Regular. Lungs: Equal expansion, normal respiratory effort. Abdomen: Soft, nontender, nondistended. Extremities: Normal skin color and turgor. Right forearm with nonpalpable thrill and no audible bruit over AV graft. Neurological: No focal deficits. Strength and sensation are grossly intact. Results - Labs 06/12/24 11:23 06/12/24 12:46 Abnormal Lab Results - Last 24 Hours (Table) 06/12/24 06/12/24 06/12/24 Range/Units 11:23 11:23 12:46 RBC 4.12 L (4.30-5.90) m/uL Hgb 11.1 L (13.0-17.5) gm/dL Hct 35.8 L (39.0-53.0) % Plt Count 140 L D (150-450) k/uL APTT 21.3 L (22.0-30.0) sec BUN 94 H (9-20) mg/dL Creatinine 10.29 H* (0.66-1.25) mg/dL AST 16 L (17-59) U/L Diabetes panel 06/12/24 Range/Units 12:46 Sodium 140 (137-145) mmol/L Potassium 4.4 (3.5-5.1) mmol/L Chloride 100 (98-107) mmol/L Carbon Dioxide 28 (22-30) mmol/L BUN 94 H (9-20) mg/dL Creatinine 10.29 H* (0.66-1.25) mg/dL Glucose 82 (74-99) mg/dL Calcium 8.5 (8.4-10.2) mg/dL AST 16 L (17-59) U/L ALT 11 (4-49) U/L Alkaline Phosphatase 66 (38-126) U/L Total Protein 7.0 (6.3-8.2) g/dL Albumin 3.6 (3.5-5.0) g/dL Calcium panel 06/12/24 Range/Units 12:46 Calcium 8.5 (8.4-10.2) mg/dL Albumin 3.6 (3.5-5.0) g/dL Pituitary panel 06/12/24 Range/Units 12:46 Sodium 140 (137-145) mmol/L Potassium 4.4 (3.5-5.1) mmol/L Chloride 100 (98-107) mmol/L Carbon Dioxide 28 (22-30) mmol/L BUN 94 H (9-20) mg/dL Creatinine 10.29 H* (0.66-1.25) mg/dL Glucose 82 (74-99) mg/dL Calcium 8.5 (8.4-10.2) mg/dL Adrenal panel 06/12/24 Range/Units 12:46 Sodium 140 (137-145) mmol/L Potassium 4.4 (3.5-5.1) mmol/L Chloride 100 (98-107) mmol/L Carbon Dioxide 28 (22-30) mmol/L BUN 94 H (9-20) mg/dL Creatinine 10.29 H* (0.66-1.25) mg/dL Glucose 82 (74-99) mg/dL Calcium 8.5 (8.4-10.2) mg/dL Total Bilirubin 0.4 (0.2-1.3) mg/dL AST 16 L (17-59) U/L ALT 11 (4-49) U/L Alkaline Phosphatase 66 (38-126) U/L Total Protein 7.0 (6.3-8.2) g/dL Albumin 3.6 (3.5-5.0) g/dL Assessment and Plan Assessment: 1. Thrombosed right upper extremity AV loop graft 2. End-stage renal disease on hemodialysis Plan: 1. Patient may have renal diet, n.p.o. after midnight 2. Patient to be scheduled tomorrow for fistulogram with possible thrombectomy/possible balloon dilation 3. Hemodialysis per recommendations from nephrology Thank you for this consultation, we will continue to follow. The impression and plan of care has been dictated as directed. I performed a history and examination of this patient, discussed the same with the dictator. I agree with the dictator's note ,documented as a scribe. Any additional findings or plans will be noted.
[2024-06-12] MEDS: HEPARIN SODIUM,PORCINE 5,000 UNIT/ML 1 ML VIAL SQ SCH (16:55)
--- NOTE | 2024-06-12 17:03 | P.HPIM ---
History of Present Illness H&P Date: 06/12/24 Patient is a 78-year-old male with a history of ESRD on hemodialysis Tuesday, hypertension, dyslipidemia, presenting with right upper extremity AV fistula malfunction, and missed hemodialysis session. He claims that he still makes some urine. Denies any chest pain, shortness of breath, abdominal pain, nausea, vomiting, urinary or bowel complaints. Denies any smoking, alcohol use, illicit drug use. In the ED, temperature was 97.4, pulse 54, heart respiratory rate 20, blood pressure 191/84, saturating 100% on room air. WBC 4.5, hemoglobin 11.1 around baseline, platelet 140 baseline, potassium 4.4, creatinine 10.29, BUN 94, glucose 82. Vascular surgery and nephrology consulted. Pertinent positives and negatives as discussed in HPI, a complete review of systems was performed and all other systems are negative. Patient seen and examined at bedside. Vital signs reviewed General: nontoxic, no distress, appears at stated age Derm: warm, dry Head: atraumatic, normocephalic, symmetric Eyes: EOMI, no lid lag, anicteric sclera, pupils equal round reactive to light ENT: Nose and ears atraumatic Neck: No thyromegaly, supple Mouth: no lip lesion, mucus membranes moist Cardiovascular: S1S2 reg, no murmur, no edema, right forearm fistula with no thrill or bruit Lungs: clear to auscultation bilateral, no rhonchi, no rales, no wheeze, no accessory muscle use Abdominal: soft, nontender to palpation, no guarding, no appreciable organomegaly Ext: no gross muscle atrophy, muscle strength muscle strength 5 out of 5 in all 4 extremities, no contractures Neuro: CN II-XII grossly intact Psych: Alert, oriented, appropriate affect Assessment/Plan: Active: Malfunctioning AV fistula ESRD on hemodialysis TTS Uremia Normocytic anemia, stable Thrombocytopenia, stable -Vascular surgery and nephrology consulted, pending recommendations -PhosLo 3 times daily ordered Uncontrolled hypertension -Resumed home lisinopril 10 mg on nondialysis days -Blood pressure will improve with dialysis Chronic: Dyslipidemia BPH Glaucoma Hypothyroidism The patient is admitted with an anticipated less than 2 midnight stay as observation status for evaluation of malfunctioning AV fistula. Surrogate decision-maker: Son CODE STATUS: Full code DVT prophylaxis: Subcu heparin Anticipated discharge date: Pending clinical course Anticipated discharge place: Pending clinical course A total of 55 minutes was spent on the care of this complex patient more than 50% of the time was spent in counseling and care coordination. Past Medical History Past Medical History: Eye Disorder, Hyperlipidemia, Hypertension, Renal Disease, Thyroid Disorder Additional Past Medical History / Comment(s): glaucoma julio eyes,myasthenia gravis, dialysis Tu//Sat History of Any Multi-Drug Resistant Organisms: None Reported Additional Past Surgical History / Comment(s): thymus gland removed 1988; AV fistula right upper extremity Past Anesthesia/Blood Transfusion Reactions: No Reported Reaction Past Psychological History: No Psychological Hx Reported Smoking Status: Never smoker - Past Family History Mother Family Medical History: Cancer Additional Family Medical History / Comment(s): lung Medications and Allergies Home Medications Medication Instructions Recorded Confirmed Type Brinzolamide/Brimonidine Tart 1 drop BOTH EYES BID 04/20/17 06/12/24 History [Simbrinza 1%-0.2% Eye Drops] Latanoprost Ophth [Xalatan 0.005%] 1 drop BOTH EYES HS 04/20/17 06/12/24 History Simvastatin [Zocor] 20 mg PO HS 04/20/17 06/12/24 History Tamsulosin HCl [Flomax] 0.4 mg PO HS 04/20/17 06/12/24 History Calcium Acetate [PhosLo] 1,334 mg PO TID-W/MEALS 02/07/24 06/12/24 History Levothyroxine Sodium [Synthroid] 137 mcg PO DAILY 02/07/24 06/12/24 History lisinopriL [Zestril] 10 mg PO SUMOWEFR 02/07/24 06/12/24 History Aspirin EC [Ecotrin] 325 mg PO DAILY 06/12/24 06/12/24 History Calcium Acetate [Phoslo] 667 mg PO DAILY PRN 06/12/24 06/12/24 History Allergies Allergy/AdvReac Type Severity Reaction Status Date / Time No Known Allergies Allergy Verified 06/12/24 14:50 Physical Exam Vitals: Vital Signs Temp Pulse Resp BP Pulse Ox 06/12/24 15:20 97.6 F 94 22 168/77 100 06/12/24 11:45 97.4 F L 80 18 153/77 100 06/12/24 09:50 97.4 F L 54 L 20 191/84 100 Intake and Output 06/12/24 06/12/24 06/12/24 06:59 14:59 22:59 Other: Weight 95.254 kg Results CBC & Chem 7: 06/12/24 11:23 06/12/24 12:46 Labs: Abnormal Lab Results - Last 24 Hours (Table) 06/12/24 06/12/24 06/12/24 Range/Units 11:23 11:23 12:46 RBC 4.12 L (4.30-5.90) m/uL Hgb 11.1 L (13.0-17.5) gm/dL Hct 35.8 L (39.0-53.0) % Plt Count 140 L D (150-450) k/uL APTT 21.3 L (22.0-30.0) sec BUN 94 H (9-20) mg/dL Creatinine 10.29 H* (0.66-1.25) mg/dL AST 16 L (17-59) U/L
[2024-06-12] MEDS: CALCIUM ACETATE 667 MG TAB PO SCH (17:14)
[2024-06-12] MEDS: ALTEPLASE 2 MG VIAL (CATHFLO) IV STA (19:20)
[2024-06-12] MEDS ORDERED: BRIMONIDINE TART BOTH EYES SCH (21:00)
[2024-06-12] MEDS ORDERED: [UNRECOGNIZED DRUG - OTHER] BOTH EYES SCH (21:00)
[2024-06-12] MEDS ORDERED: BRINZOLAMIDE BOTH EYES SCH (21:00)
[2024-06-12] MEDS: TAMSULOSIN 0.4 MG CAP.ER.24H PO SCH (21:02)
[2024-06-12] MEDS: ATORVASTATIN 10 MG TAB PO SCH (21:02)
[2024-06-12] MEDS: BRIMONIDINE TARTRATE 0.2% DROPS 5 ML BTL BOTH EYES SCH (21:03)
[2024-06-12] MEDS: DORZOLAMIDE HCL 2% DROPS 10 ML BTL BOTH EYES SCH (21:04)
[2024-06-12] MEDS: LATANOPROST 0.005% OPHTH DROPS 2.5 ML BTL BOTH EYES SCH (21:05)
[2024-06-13] MEDS: LEVOTHYROXINE 137 MCG TAB PO SCH (06:36)
[2024-06-13 07:37] VITALS: RESP 16
[2024-06-13] MEDS: NON FORMULARY DRUG (Aspirin Ec 325 MG Tab) PO SCH (08:45)
[2024-06-13] MEDS: lisinopriL 10 MG TAB PO SCH (08:50)
[2024-06-13 10:45] LABS: Basophils # (A) 0.04 X 10*3/uL (0.00-0.10); Basophils % (A) 0.8 %; Eosinophils % (A) 2.1 %; HCT 34.9 % (39.6-50.0); HGB 10.9 g/dL (13.0-17.0); Lymphocytes # (A) 1.76 X 10*3/uL (0.90-5.00); MCH 27.6 pg (27.0-32.0); MCHC 31.2 g/dL (32.0-37.0); MCV 88.4 FL (80.0-97.0); Mean Platelet Volume 11.5 FL (9.5-12.2); Monocytes # (A) 0.58 X 10*3/uL (0.20-1.00); Monocytes % (A) 12.2 %; NRBC Per 100 WBC 0 X 10*3/uL (0.00-0.01); Neutrophils # (A) 2.27 X 10*3/uL (1.80-7.70); Neutrophils % (A) 47.7 %; Platelet Count 141 X 10*3/uL (140-440); RBC 3.95 X 10*6/uL (4.40-5.60); RDW 15.4 % (11.5-14.5); WBC 4.76 X 10*3/uL (4.50-10.00)
[2024-06-13 10:49] LABS: BUN/Creat Ratio 8.25 Ratio (12.00-20.00); Blood Urea Nitrogen 88.3 mg/dL (9.0-27.0); Calcium 8.6 mg/dL (8.7-10.3); Carbon Dioxide 24.6 mmol/L (21.6-31.8); Chloride 101 mmol/L (96-109); Glucose 90 mg/dL (70-110); Potassium 5.1 mmol/L (3.5-5.5); Sodium 140 mmol/L (135-145)
[2024-06-13 12:53] LABS: Glucose,Whole Blood 88 mg/dL (70-110)
--- NOTE | 2024-06-13 13:07 | P.NPCON ---
History of Present Illness - Reason for Consult end stage renal disease - History of Present Illness Patient is a 78-year-old male with end-stage renal disease on hemodialysis on Tuesday schedule. Patient is admitted to the hospital due to nonfunctioning right arm AV graft. Patient did not have his dialysis yesterday. He has been evaluated by vascular surgery and there are plans for fistulogram today. Patient has had previous thrombectomies at least 2 times before. Serum potassium 5.1 No other complaints today Past Medical History Past Medical History: Eye Disorder, Hyperlipidemia, Hypertension, Renal Disease, Thyroid Disorder Additional Past Medical History / Comment(s): glaucoma julio eyes,myasthenia gravis, dialysis //Tue History of Any Multi-Drug Resistant Organisms: None Reported Additional Past Surgical History / Comment(s): thymus gland removed 1988; AV fistula right upper extremity Past Anesthesia/Blood Transfusion Reactions: No Reported Reaction Past Psychological History: No Psychological Hx Reported Smoking Status: Never smoker - Past Family History Mother Family Medical History: Cancer Additional Family Medical History / Comment(s): lung Medications and Allergies Home Medications Medication Instructions Recorded Confirmed Type Brinzolamide/Brimonidine Tart 1 drop BOTH EYES BID 04/20/17 06/12/24 History [Simbrinza 1%-0.2% Eye Drops] Latanoprost Ophth [Xalatan 0.005%] 1 drop BOTH EYES HS 04/20/17 06/12/24 History Simvastatin [Zocor] 20 mg PO HS 04/20/17 06/12/24 History Tamsulosin HCl [Flomax] 0.4 mg PO HS 04/20/17 06/12/24 History Calcium Acetate [PhosLo] 1,334 mg PO TID-W/MEALS 02/07/24 06/12/24 History Levothyroxine Sodium [Synthroid] 137 mcg PO DAILY 02/07/24 06/12/24 History lisinopriL [Zestril] 10 mg PO SUMOWEFR 02/07/24 06/12/24 History Aspirin EC [Ecotrin] 325 mg PO DAILY 06/12/24 06/12/24 History Calcium Acetate [Phoslo] 667 mg PO DAILY PRN 06/12/24 06/12/24 History Allergies Allergy/AdvReac Type Severity Reaction Status Date / Time No Known Allergies Allergy Verified 06/12/24 14:50 Physical Exam Vitals: Vital Signs Temp Pulse Resp BP Pulse Ox 06/13/24 12:36 46 L 16 167/77 100 06/13/24 07:34 48 L 16 171/76 100 06/13/24 02:00 42 L 17 155/82 100 06/12/24 15:20 97.6 F 94 22 168/77 100 Patient is awake, comfortable, no acute distress Examination of the heart S1 and S2 Examination of the lungs bilateral breath sounds are heard Abdomen is soft nontender Examination of lower extremities shows no evidence of edema STORE KEEPER exam grossly intact Results - Lab Results Most recent lab results Calcium 8.6 mg/dL (8.7-10.3) L 06/13/24 06:41 06/13/24 06:41 06/13/24 06:41 Assessment and Plan Assessment: 1. End-stage renal disease on hemodialysis on Tuesday schedule 2. Thrombosed right arm AV graft scheduled for fistulogram and possible thro mbectomy today 3. Hypertension with CKD stage V 4. 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 Possible thrombectomy. Patient will repeat hemodialysis in a.m. Continue with PhosLo Thank you for the consultation. We will continue to follow the patient with you during his hospitalization.
--- NOTE | 2024-06-13 14:36 | P.PN ---
Subjective Progress Note Date: 06/13/24 Hospital Course: 78-year-old male with a history of ESRD on hemodialysis Tuesday, hypertension, dyslipidemia, presenting with right upper extremity AV fistula malfunction, and missed hemodialysis session. In the ED, temperature was 97.4, pulse 54, heart respiratory rate 20, blood pressure 191/84, saturating 100% on room air. WBC 4.5, hemoglobin 11.1 around baseline, platelet 140 baseline, potassium 4.4, creatinine 10.29, BUN 94, glucose 82. Vascular surgery and nephrology consulted. Subjective: Patient seen and examined at bedside. No acute events overnight. Pertinent positives and negatives as discussed above, a complete review of systems was performed and all other systems are negative. Vitals Signs Reviewed. General: nontoxic, no distress, appears at stated age Derm: warm, dry Head: atraumatic, normocephalic, symmetric Eyes: EOMI, no lid lag, anicteric sclera, pupils equal round reactive to light ENT: Nose and ears atraumatic Neck: No thyromegaly, supple Mouth: no lip lesion, mucus membranes moist Cardiovascular: S1S2 reg, no murmur, no edema, right forearm fistula with no thrill or bruit Lungs: clear to auscultation bilateral, no rhonchi, no rales, no wheeze, no accessory muscle use Abdominal: soft, nontender to palpation, no guarding, no appreciable organomegaly Ext: no gross muscle atrophy, muscle strength muscle strength 5 out of 5 in all 4 extremities, no contractures Neuro: CN II-XII grossly intact Psych: Alert, oriented, appropriate affect Data Reviewed Today: Pertinent Labs: Hemoglobin 10.9, platelet 141, creatinine 10.7, sugars 88-90. Imaging: No new imaging Assessment and Plan: Active: Malfunctioning AV fistula ESRD on hemodialysis TTS Uremia Normocytic anemia, stable Thrombocytopenia, stable -Vascular surgery consulted, likely thrombectomy today -Nephrology note reviewed, hemodialysis after vascular access -PhosLo 3 times daily ordered Uncontrolled hypertension -Continue home lisinopril 10 mg on nondialysis days -Blood pressure will improve with dialysis Chronic: Dyslipidemia BPH Glaucoma Hypothyroidism DVT ppx: Subcu heparin Code status: Full code Anticipated discharge place: Pending clinical course Anticipated discharge time: Pending clinical course Objective - Vital Signs Vital signs: Vital Signs Temp 97.9 F 06/13/24 14:27 Pulse 50 L 06/13/24 14:27 Resp 16 06/13/24 14:27 BP 186/85 06/13/24 14:27 Pulse Ox 100 06/13/24 14:27 FiO2 Intake & Output 06/12/24 06/13/24 06/13/24 18:59 06:59 18:59 Weight 95.254 kg - Labs CBC & Chem 7: 06/13/24 06:41 06/13/24 06:41 Labs: Abnormal Lab Results - Last 24 Hours (Table) 06/13/24 06/13/24 Range/Units 06:41 06:41 RBC 3.95 L (4.40-5.60) X 10*6/uL Hgb 10.9 L (13.0-17.0) g/dL Hct 34.9 L (39.6-50.0) % MCHC 31.2 L (32.0-37.0) g/dL RDW 15.4 H (11.5-14.5) % Anion Gap 14.40 H (4.00-12.00) mmol/L BUN 88.3 H (9.0-27.0) mg/dL Creatinine 10.7 H (0.6-1.5) mg/dL Est GFR (CKD-EPI) 5 L (>=60) BUN/Creatinine Ratio 8.25 L (12.00-20.00) Ratio Calcium 8.6 L (8.7-10.3) mg/dL
[2024-06-13] MEDS: MIDAZOLAM 2 MG/2 ML VIAL IVP ONE (15:07)
[2024-06-13] MEDS: fentaNYL (PF) 50 MCG/1 ML VIAL IVP ONE (15:07)
[2024-06-13] MEDS: LIDOCAINE 1% INJ 10MG/ML (20 ML MDV) SQ ONE (15:07)
[2024-06-13] MEDS: SODIUM CHLORIDE 0.9% 250 ML IV ONE (15:51)
[2024-06-13] MEDS: IOPAMIDOL-370 100ML BTL INJ ONE (16:16)
--- NOTE | 2024-06-13 17:04 | P.OP ---
Date of Procedure: 06/13/24 Preoperative Diagnosis: 1: Thrombosed right forearm loop AV dialysis graft. 2: CKD V. Postoperative Diagnosis: Same. Procedure(s) Performed: 1: Placement of 6 Croatian sheath x 2. 2: Fistulogram. 3: Percutaneous mechanical thrombectomy AV dialysis graft. 4: Balloon dilation venous outflow tract. 5: Stent placement right brachial vein. Anesthesia: local (1% Xylocaine with 2 mg of Versed and 50 mcg of fentanyl for moderate conscious sedation purposes.) Surgeon: Austin Bone Estimated Blood Loss (ml): 25 Pathology: none sent Condition: stable Disposition: no change Indications for Procedure: Patient is a 78-year-old male with a history of chronic renal insufficiency requiring long-term hemodialysis. He has a loop forearm graft in the right upper extremity. This has thrombosed. The patient is now offered percutaneous thrombectomy. The procedure, risk and benefits were discussed with the patient. Patient wished to proceed. Description of Procedure: Patient was brought to the cardiac catheterization laboratory. The right upper extremity was sterilely prepped and draped in usual manner. The patient did receive both Versed and fentanyl for moderate conscious sedation purposes. Micropuncture needle was utilized to cannulate the AV graft both in the antegrade and retrograde direction. This allowed for placement of 2 separate 6 Croatian sheaths, 1 in the antegrade and the other in the retrograde direction. Fistulogram was then performed. This demonstrated the arterial anastomosis to be widely patent. Percutaneous mechanical thrombectomy utilizing AngioJet was performed both in the retrograde and antegrade direction. Completion fistulogram was performed. Outflow stenosis was identified and a 7 mm diameter balloon catheter was selected to balloon dilate the outflow tract. In spite of successful balloon dilation poor flow of blood during fistulogram was identified owing to more proximal venous outflow issues. Venogram of the upper extremity was then performed which demonstrated long segment stenosis of the basilic v ein/outflow tract. This was dilated with a 7 mm balloon and after multiple ballooning interventions a area of stenosis, focally severe was identified. This would not respond well to balloon dilation and a 8 mm x 4 mm self-expanding stent was selected and deployed in this area. Additional areas of stenosis were identified somewhat more proximally and a 8 mm x 60 mm self-expanding stent was selected and utilized to treat the residual stenotic areas. Post stent balloon dilation was performed and repeat upper extremity venogram demonstrated much improved flow characteristics. No central venous stenosis was identified. With the above findings noted the sheaths were withdrawn and puncture wounds were closed with 3-0 nylon suture. Appropriate dressings were applied. Patient tolerated the procedure well and was returned to his room in satisfactory and stable condition.
--- NOTE | 2024-06-13 17:47 | P.DS ---
Providers Date of admission: 06/12/24 15:19 Expected date of discharge: 06/13/24 Attending physician: Kurt Gama Consults: 06/12/24 14:24 Consult Physician Urgent Consulting Provider: Austin Bone Consult Reason/Comments: AV fistula malfunction Do you want consulting provider notified?: Yes Consult Physician Urgent Consulting Provider: Jigna Harvey Consult Reason/Comments: ESRD on hemodialysis Do you want consulting provider notified?: Yes Primary care physician: Vasquez Morton MD Hospital Course: Discharge Diagnosis: Malfunctioning AV fistula ESRD on hemodialysis TTS Uremia Normocytic anemia, stable Thrombocytopenia, stable Uncontrolled hypertension Dyslipidemia BPH Glaucoma Hypothyroidism Hospital Course: 78-year-old male with a history of ESRD on hemodialysis Tuesday, hypertension, dyslipidemia, presenting with right upper extremity AV fistula malfunction, and missed hemodialysis session. In the ED, temperature was 97.4, pulse 54, heart respiratory rate 20, blood pressure 191/84, saturating 100% on room air. WBC 4.5, hemoglobin 11.1 around baseline, platelet 140 baseline, potassium 4.4, creatinine 10.29, BUN 94, glucose 82. Vascular surgery and nephrology consulted. Vascular surgery did thrombectomy and stented graft. Patient had dialysis. Being discharged home. Patient seen and examined at bedside. Vital signs reviewed and stable. General: nontoxic, no distress, appears at stated age Derm: warm, dry Head: atraumatic, normocephalic, symmetric Eyes: EOMI, no lid lag, anicteric sclera, pupils equal round reactive to light ENT: Nose and ears atraumatic Neck: No thyromegaly, supple Mouth: no lip lesion, mucus membranes moist Cardiovascular: S1S2 reg, no murmur, no edema, right forearm fistula Lungs: clear to auscultation bilateral, no rhonchi, no rales, no wheeze, no accessory muscle use Abdominal: soft, nontender to palpation, no guarding, no appreciable organomegaly Ext: no gross muscle atrophy, musc hospital Course: A total of 36 minutes of time were spent preparing this complex discharge summary. Patient was discharged on 06/13/2024 at 1719. Plan - Discharge Summary New Discharge Prescriptions: Continue Simvastatin [Zocor] 20 mg PO HS Latanoprost Ophth [Xalatan 0.005%] 1 drop BOTH EYES HS Brinzolamide/Brimonidine Tart [Simbrinza 1%-0.2% Eye Drops] 1 drop BOTH EYES BID Tamsulosin HCl [Flomax] 0.4 mg PO HS lisinopriL [Zestril] 10 mg PO SUMOWEFR Calcium Acetate [PhosLo] 667 mg PO DAILY PRN PRN Reason: w/snack Calcium Acetate [PhosLo] 1,334 mg PO TID-W/MEALS Levothyroxine Sodium [Synthroid] 137 mcg PO DAILY Aspirin EC [Ecotrin] 325 mg PO DAILY Discharge Medication List Brinzolamide/Brimonidine Tart [Simbrinza 1%-0.2% Eye Drops] 1 drop BOTH EYES BID 04/20/17 [History] Latanoprost Ophth [Xalatan 0.005%] 1 drop BOTH EYES HS 04/20/17 [History] Simvastatin [Zocor] 20 mg PO HS 04/20/17 [History] Tamsulosin HCl [Flomax] 0.4 mg PO HS 04/20/17 [History] Calcium Acetate [PhosLo] 1,334 mg PO TID-W/MEALS 02/07/24 [History] Levothyroxine Sodium [Synthroid] 137 mcg PO DAILY 02/07/24 [History] lisinopriL [Zestril] 10 mg PO SUMOWEFR 02/07/24 [History] Aspirin EC [Ecotrin] 325 mg PO DAILY 06/12/24 [History] Calcium Acetate [PhosLo] 667 mg PO DAILY PRN 06/12/24 [History] Follow up Appointment(s)/Referral(s): Vasquez Morton MD [Primary Care Provider] - 1-2 days Patient Instructions/Handouts: End Stage Kidney Disease (DC) Activity/Diet/Wound Care/Special Instructions: Please see your PCP. Discharge Disposition: HOME SELF-CARE
[2024-06-13 21:31] VITALS: BP 142/69; PULSE 51; TEMP 97.2
--- NOTE | 2024-06-14 09:46 | IR ---
EXAMINATION TYPE: IR sloop captain venous DATE OF EXAM: 06/13/2024 4:55 PM COMPARISON: Pre Operative Images if available both CT/MRI or plain film CLINICAL INDICATION: Male, 78 years old with history of CLOSED DIALYSIS CIRCUIT; TECHNIQUE: IR sloop captain venous, multiple fluoroscopic images provided for procedure. Total fluoroscopy time: 5.48 seconds Total submitted images to PACS: 6 DAP: 5.24 Gycm2 FINDINGS: IMPRESSION: 1. Report was generated for administrative purposes only. 2. Please see the operative/procedural note for further details. [facility], , 06/14/2024 9:44 AM
== END 2024-06-13 21:01 | disposition home or self-care (01) ==
LOC: EC 09:48 → 6NMEDSUR 15:19
PROVIDERS: ADMIT Student in an Organized Health Care Education/Training Program; ATTEND Student in an Organized Health Care Education/Training Program
DX: T82.868A Thrombosis due to vascular prosthetic devices, implants and grafts, initial encounter (principal); T82.510A Breakdown (mechanical) of surgically created arteriovenous fistula, initial encounter; Y83.2 Surgical operation with anastomosis, bypass or graft as the cause of abnormal reaction of the patient, or of later complication, without mention of misadventure at the time of the procedure; Y71.2 Prosthetic and other implants, materials and accessory cardiovascular devices associated with adverse incidents; D64.9 Anemia, unspecified; D69.6 Thrombocytopenia, unspecified; E03.9 Hypothyroidism, unspecified; E78.5 Hyperlipidemia, unspecified; G70.00 Myasthenia gravis without (acute) exacerbation; H40.9 Unspecified glaucoma; I12.0 Hypertensive chronic kidney disease with stage 5 chronic kidney disease or end stage renal disease; M89.8X9 Other specified disorders of bone, unspecified site; N18.6 End stage renal disease; N40.0 Benign prostatic hyperplasia without lower urinary tract symptoms; Z79.82 Long term (current) use of aspirin; Z79.890 Hormone replacement therapy; Z99.2 Dependence on renal dialysis; Z79.899 Other long term (current) drug therapy
CPT/HCPCS: 96372; 99285; 36415; 93005; 76937; 36906; 80053; 80048; 85025 ×2; 85610; 85730; G0257; G0378 ×2; C1894; C1769 ×4; C1725; C1876; C1757; J2250; J1644; J2003; Q9967; J3010; 90935

== ENCOUNTER 2024-06-19 10:42 | Observation (INO) | payer MEDICARE ==
[2024-06-19 11:43] LABS: Basophils % (A) 0 %; Eosinophils # (A) 0.2 k/uL (0-0.7); Eosinophils % (A) 3 %; HCT 34.8 % (39.0-53.0); HGB 10.9 gm/dL (13.0-17.5); Lymphocytes # (A) 1.1 k/uL (1.0-4.8); Lymphocytes % (A) 22 %; MCH 27.2 pg (25.0-35.0); MCHC 31.3 g/dL (31.0-37.0); Monocytes # (A) 0.4 k/uL (0-1.0); Monocytes % (A) 8 %; Neutrophils # (A) 3.3 k/uL (1.3-7.7); Neutrophils % (A) 65 %; Platelet Count 138 k/uL (150-450); RDW 15.4 % (11.5-15.5); WBC 5.1 k/uL (3.8-10.6)
[2024-06-19 11:53] LABS: Partial Thromboplastin Time 22.6 sec (22.0-30.0); Prothrombin Time 10.9 sec (10.0-12.5)
[2024-06-19 12:01] LABS: Chloride 99 mmol/L (98-107)
[2024-06-19 12:36] LABS: ALT 12 U/L (4-49); African American GFR (CKD) 5 (>60 ml/min/1.73 sqM); Albumin 3.6 g/dL (3.5-5.0); Anion Gap 14 mmol/L; Blood Urea Nitrogen 88 mg/dL (9-20); Calcium 7.9 mg/dL (8.4-10.2); Carbon Dioxide 28 mmol/L (22-30); Glucose 96 mg/dL (74-99); Non-African American GFR(CKD) 4 (>60 ml/min/1.73 sqM); Sodium 141 mmol/L (137-145); Total Bilirubin 0.5 mg/dL (0.2-1.3); Total Protein 7.2 g/dL (6.3-8.2)
[2024-06-19 12:47] LABS: AST 21 U/L (17-59); Alkaline Phosphatase 58 U/L (38-126); Potassium 4.3 mmol/L (3.5-5.1)
--- NOTE | 2024-06-19 14:08 | ED ---
General Adult HPI - General Chief complaint: Recheck/Abnormal Lab/Rx Stated complaint: port malfunction Time Seen by Provider: 06/19/24 10:55 Source: patient, RN notes reviewed, old records reviewed Mode of arrival: ambulatory Limitations: no limitations - History of Present Illness Initial comments: This is a 78-year-old male who presents to the emergency department stating that he had dialysis on Tuesday and he was post go today but when they went to use his fistula did not work so they sentiment to the emergency department. Patient denies any fever chills or cough or patient has any swelling to the arm patient denies any pain in the arm. Patient denies any palpitations chest pain or difficulty breathing. - Related Data Home Medications Medication Instructions Recorded Confirmed Brinzolamide/Brimonidine Tart 1 drop BOTH EYES BID 04/20/17 06/12/24 [Simbrinza 1%-0.2% Eye Drops] Latanoprost Ophth [Xalatan 0.005%] 1 drop BOTH EYES HS 04/20/17 06/12/24 Simvastatin [Zocor] 20 mg PO HS 04/20/17 06/12/24 Tamsulosin HCl [Flomax] 0.4 mg PO HS 04/20/17 06/12/24 Calcium Acetate [PhosLo] 1,334 mg PO TID-W/MEALS 02/07/24 06/12/24 Levothyroxine Sodium [Synthroid] 137 mcg PO DAILY 02/07/24 06/12/24 lisinopriL [Zestril] 10 mg PO SUMOWEFR 02/07/24 06/12/24 Aspirin EC [Ecotrin] 325 mg PO DAILY 06/12/24 06/12/24 Calcium Acetate [PhosLo] 667 mg PO DAILY PRN 06/12/24 06/12/24 Allergies Allergy/AdvReac Type Severity Reaction Status Date / Time No Known Allergies Allergy Verified 06/19/24 10:51 Review of Systems ROS Statement: Those systems with pertinent positive or pertinent negative responses have been documented in the HPI. ROS Other: All systems not noted in ROS Statement are negative. Past Medical History Past Medical History: Eye Disorder, Hyperlipidemia, Hypertension, Renal Disease, Thyroid Disorder Additional Past Medical History / Comment(s): glaucoma julio eyes,myasthenia gravis, dialysis //Sat History of Any Multi-Drug Resistant Organisms: None Reported Additional Past Surgical History / Comment(s): thymus gland removed 1988; AV fistula right upper extremity Past Anesthesia/Blood Transfusion Reactions: No Reported Reaction Past Psychological History: No Psychological Hx Reported Smoking Status: Never smoker Past Alcohol Use History: None Reported Past Drug Use History: None Reported - Past Family History Mother Family Medical History: Cancer Additional Family Medical History / Comment(s): lung General Exam - General Exam Comments Initial Comments: GENERAL: Patient is well-developed and well-nourished. Patient is nontoxic and well- hydrated and is in no acute distress. ENT: Neck is soft and supple. No significant lymphadenopathy is noted. Oropharynx is clear. Moist mucous membranes. Neck has full range of motion without eliciting any pain. EYES: The sclera were anicteric and conjunctiva were pink and moist. Extraocular movements were intact and pupils were equal round and reactive to light. Eyelids were unremarkable. PULMONARY: Unlabored respirations. Good breath sounds bilaterally. No audible rales rhonchi or wheezing was noted. CARDIOVASCULAR: There is a regular rate and rhythm without any murmurs gallops or rubs. ABDOMEN: Soft and nontender with normal bowel sounds. SKIN: Skin is clear with no lesions or rashes and otherwise unremarkable. NEUROLOGIC: Patient is alert and oriented x3. Cranial nerves II through XII are grossly intact. Motor and sensory are also intact. Normal speech, volume and content. Symmetrical smile. MUSCULOSKELETAL: Normal extremities with adequate strength and full range of motion. Patient has no thrill to the fistula LYMPHATICS: No significant lymphadenopathy is noted PSYCHIATRIC: Normal psychiatric evaluation. Limitations: no limitations Course Vital Signs 06/19/24 10:47 Temperature 97.4 F L Pulse Rate 55 L Respiratory 18 Rate Blood Pressure 157/71 O2 Sat by Pulse 100 Oximetry Medical Decision Making - Medical Decision Making Was pt. sent in by a medical professional or institution (, PA, VENTURE CAPITALIST, urgent care, hospital, or intermediate...) When possible be specific @ -No Did you speak to anyone other than the patient for history (EMS, parent, family, police, friend...)? What history was obtained from this source @ -No Did you review nursing and triage notes (agree or disagree)? Why? @ -I reviewed and agree with nursing and triage notes Were old charts reviewed (outside hosp., previous admission, EMS record, old E KG, old radiological studies, urgent care reports/EKG's, intermediate records)? Report findings @ -No old charts were reviewed Differential Diagnosis? @ -Fistula clotted EKG interpreted by me (3pts min.). @ -As above X-rays interpreted by me (1pt min.). @ -None done CT interpreted by me (1pt min.). @ -None done U/S interpreted by me (1pt. min.). @ -None done What testing was considered but not performed or refused? (CT, X-rays, U/S, labs)? Why? @ -None What meds were considered but not given or refused? Why? @ -None Did you discuss the management of the patient with other professionals (prof rashad i.e. , PA, VENTURE CAPITALIST, lab, RT, psych nurse, 7th grade social studies teacher, house worker, teacher, certified juvenile probation officer, bilingual patient support caseworker)? Give summary @ -I spoke with sound physicians agreed to admit the patient admit the patient I wrote admitting orders Was smoking cessation discussed for >3mins.? @ -No Was critical care preformed (if so, how long)? @ -No Were there social determinants of health that impacted care today? How? (Homelessness, low income, unemployed, alcoholism, drug addiction, transportation, low edu. Level, literacy, decrease access to med. care, assisted, rehab)? @ -No Was there de-escalation of care discussed even if they declined (Discuss DNR or withdrawal of care, Hospice)? DNR status @ -No What co-morbidities impacted this encounter? (DM, HTN, Smoking, COPD, CAD, Cancer, CVA, ARF, Chemo, Hep., AIDS, mental health diagnosis, sleep apnea, morbid obesity)? @ -None Was patient admitted / discharged? Hospital course, mention meds given and route, prescriptions, significant lab abnormalities, going to OR and other pertinent info. @ -Patient will be admitted to [facility] with a consult to nephrology and vascular surgery Undiagnosed new problem with uncertain prognosis? @ -No Drug Therapy requiring intensive monitoring for toxicity (Heparin, Nitro, Insulin, Cardizem)? @ -No Were any procedures done? @ -No Diagnosis/symptom? @ -Malfunctioning fistula Acute, or Chronic, or Acute on Chronic? @ -Acute Uncomplicated (without systemic symptoms) or Complicated (systemic symptoms)? @ -Complicated Side effects of treatment? @ -No Exacerbation, Progression, or Severe Exacerbation? @ -No Poses a threat to life or bodily function? How? (Chest pain, [place], AL, pneumonia, PE, COPD, DKA, ARF, appy, cholecystitis, CVA, Diverticulitis, Homicidal, Suicidal, threat to staff... and all critical care pts) @ -No - Lab Data Result diagrams: 06/19/24:06/19/24: Lab Results 06/19/24 06/19/24 06/19/24 Range/Units :05 03:05 03: WBC 5.1 (3.8-10.6) k/uL RBC 4.00 L (4.30-5.90) m/uL Hgb 10.9 L (13.0-17.5) gm/dL Hct 34.8 L (39.0-53.0) % MCV 87.0 (80.0-100.0) fL MCH 27.2 (25.0-35.0) pg MCHC 31.3 (31.0-37.0) g/dL RDW 15.4 (11.5-15.5) % Plt Count 138 L (150-450) k/uL MPV 8.0 Neutrophils % 65 % Lymphocytes % 22 % Monocytes % 8 % Eosinophils % 3 % Basophils % 0 % Neutrophils # 3.3 (1.3-7.7) k/uL Lymphocytes # 1.1 (1.0-4.8) k/uL Monocytes # 0.4 (0-1.0) k/uL Eosinophils # 0.2 (0-0.7) k/uL Basophils # 0.0 (0-0.2) k/uL PT 10.9 (10.0-12.5) sec INR 1.0 (<1.2) APTT 22.6 (22.0-30.0) sec Sodium 141 (137-145) mmol/L Potassium 4.3 (3.5-5.1) mmol/L Chloride 99 (98-107) mmol/L Carbon Dioxide 28 (22-30) mmol/L Anion Gap 14 mmol/L BUN 88 H (9-20) mg/dL Creatinine 10.25 H* (0.66-1.25) mg/dL Est GFR (CKD-EPI)AfAm 5 (>60 ml/min/1.73 sqM) Est GFR (CKD-EPI)NonAf 4 (>60 ml/min/1.73 sqM) Glucose 96 (74-99) mg/dL Calcium 7.9 L (8.4-10.2) mg/dL Total Bilirubin 0.5 (0.2-1.3) mg/dL AST 21 (17-59) U/L ALT 12 (4-49) U/L Alkaline Phosphatase 58 (38-126) U/L Total Protein 7.2 (6.3-8.2) g/dL Albumin 3.6 (3.5-5.0) g/dL Disposition Clinical Impression: Dialysis AV fistula malfunction Disposition: ADMITTED IP TO THIS HOSP Referrals: Vasquez Morton MD [Primary Care Provider] - 1-2 days Time of Disposition: 14:08
[2024-06-19] MEDS ORDERED: CALCIUM ACETATE 667 MG TAB PO PRN (14:13)
--- NOTE | 2024-06-19 15:13 | P.GSCN ---
History of Present Illness Consult date: 06/19/24 Reason for Consult: Malfunctioning loop graft Requesting physician: Arden Hilton History of present illness: This a pleasant 78-year-old male who presented to the emergency department after going to hemodialysis today and they were not able to do dialysis secondary to thrombosed graft. Patient has had previous thrombosed graft most recently on 06/13/2024 and underwent right upper extremity fistulogram, percutaneous mechanical thrombectomy, angioplasty and stenting. Graft was working fine until he went to dialysis today. He denies any shortness of breath, chest pain, abdominal pain, nausea or vomiting. No pain at the graft site in the right upper extremity. WBC 5.1 hemoglobin 10.9 platelet count 138,000 INR 1.0 sodium 141 potassium 4.3 BUN 88 creatinine 10.2 calcium 7.9 Review of Systems A 14 point review systems was completed all pertinent positives and negatives as stated in the HPI. Past Medical History Past Medical History: Eye Disorder, Hyperlipidemia, Hypertension, Renal Disease, Thyroid Disorder Additional Past Medical History / Comment(s): glaucoma julio eyes,myasthenia gravis, dialysis //Tue History of Any Multi-Drug Resistant Organisms: None Reported Additional Past Surgical History / Comment(s): thymus gland removed 1988; AV fistula right upper extremity Past Anesthesia/Blood Transfusion Reactions: No Reported Reaction Past Psychological History: No Psychological Hx Reported Smoking Status: Never smoker Past Alcohol Use History: None Reported Past Drug Use History: None Reported - Past Family History Mother Family Medical History: Cancer Additional Family Medical History / Comment(s): lung Medications and Allergies Home Medications Medication Instructions Recorded Confirmed Type Brinzolamide/Brimonidine Tart 1 drop BOTH EYES BID 04/20/17 06/12/24 History [Simbrinza 1%-0.2% Eye Drops] Latanoprost Ophth [Xalatan 0.005%] 1 drop BOTH EYES HS 04/20/17 06/12/24 History Simvastatin [Zocor] 20 mg PO HS 04/20/17 06/12/24 History Tamsulosin HCl [Flomax] 0.4 mg PO HS 04/20/17 06/12/24 History Calcium Acetate [PhosLo] 1,334 mg PO TID-W/MEALS 02/07/24 06/12/24 History Levothyroxine Sodium [Synthroid] 137 mcg PO DAILY 02/07/24 06/12/24 History lisinopriL [Zestril] 10 mg PO SUMOWEFR 02/07/24 06/12/24 History Aspirin EC [Ecotrin] 325 mg PO DAILY 06/12/24 06/12/24 History Calcium Acetate [PhosLo] 667 mg PO DAILY PRN 06/12/24 06/12/24 History Allergies Allergy/AdvReac Type Severity Reaction Status Date / Time No Known Allergies Allergy Verified 06/19/24 10:51 Surgical - Exam Vital Signs Temp Pulse Resp BP Pulse Ox 97.4 F L 55 L 18 157/71 100 06/19/24 10:47 06/19/24 10:47 06/19/24 10:47 06/19/24 10:47 06/19/24 10:47 General appearance: The patient is alert, oriented, appears in no acute distress. HET: Head is normocephalic and atraumatic. Pupils are equal and reactive. Neck: Supple. Heart: Regular. Lungs: Equal expansion, normal respiratory effort. Abdomen: Soft, nontender, nondistended. Extremities: Normal skin color and turgor. Right upper extremity forearm with loop graft without any audible bruit or palpable thrill. Sutures in intact. Neurological: No focal deficits. Strength and sensation are grossly intact. Results - Labs 06/19/24 11:25 06/19/24 11:25 Abnormal Lab Results - Last 24 Hours (Table) 06/19/24 06/19/24 Range/Units 11:25 11:25 RBC 4.00 L (4.30-5.90) m/uL Hgb 10.9 L (13.0-17.5) gm/dL Hct 34.8 L (39.0-53.0) % Plt Count 138 L (150-450) k/uL BUN 88 H (9-20) mg/dL Creatinine 10.25 H* (0.66-1.25) mg/dL Calcium 7.9 L (8.4-10.2) mg/dL Diabetes panel 06/19/24 Range/Units 11:25 Sodium 141 (137-145) mmol/L Potassium 4.3 (3.5-5.1) mmol/L Chloride 99 (98-107) mmol/L Carbon Dioxide 28 (22-30) mmol/L BUN 88 H (9-20) mg/dL Creatinine 10.25 H* (0.66-1.25) mg/dL Glucose 96 (74-99) mg/dL Calcium 7.9 L (8.4-10.2) mg/dL AST 21 (17-59) U/L ALT 12 (4-49) U/L Alkaline Phosphatase 58 (38-126) U/L Total Protein 7.2 (6.3-8.2) g/dL Albumin 3.6 (3.5-5.0) g/dL Calcium panel 06/19/24 Range/Units 11:25 Calcium 7.9 L (8.4-10.2) mg/dL Albumin 3.6 (3.5-5.0) g/dL Pituitary panel 06/19/24 Range/Units 11:25 Sodium 141 (137-145) mmol/L Potassium 4.3 (3.5-5.1) mmol/L Chloride 99 (98-107) mmol/L Carbon Dioxide 28 (22-30) mmol/L BUN 88 H (9-20) mg/dL Creatinine 10.25 H* (0.66-1.25) mg/dL Glucose 96 (74-99) mg/dL Calcium 7.9 L (8.4-10.2) mg/dL Adrenal panel 06/19/24 Range/Units 11:25 Sodium 141 (137-145) mmol/L Potassium 4.3 (3.5-5.1) mmol/L Chloride 99 (98-107) mmol/L Carbon Dioxide 28 (22-30) mmol/L BUN 88 H (9-20) mg/dL Creatinine 10.25 H* (0.66-1.25) mg/dL Glucose 96 (74-99) mg/dL Calcium 7.9 L (8.4-10.2) mg/dL Total Bilirubin 0.5 (0.2-1.3) mg/dL AST 21 (17-59) U/L ALT 12 (4-49) U/L Alkaline Phosphatase 58 (38-126) U/L Total Protein 7.2 (6.3-8.2) g/dL Albumin 3.6 (3.5-5.0) g/dL Assessment and Plan Assessment: 1. Thrombosed right upper extremity AV loop graft 2. End-stage renal disease on hemodialysis Plan: 1. N.p.o. after midnight 2. Will plan for tunneled catheter hemodialysis placement tomorrow 3. Dialysis per recommendations from nephrology 4. Rest of medical management per primary medical team Thank you for this consultation, we will continue to follow. The impression and plan of care has been dictated as directed. Dr.Cuello Esposito I performed a history and examination of this patient, discussed the same with the dictator. I agree with the dictator's note ,documented as a scribe. Any additional findings or plans will be noted.
--- NOTE | 2024-06-19 16:01 | P.HPIM ---
History of Present Illness H&P Date: 06/19/24 History of Presenting Illness: Patient is a 77-year-old male with a past medical history of ESRD on hemodialysis Tuesday//Saturdays, hypertension, hyperlipidemia, hypothyr oidism, and glaucoma. He presented to the emergency department from hemodialysis center secondary to malfunctioning AV graft with concerns of thrombosed graft. Patient recently underwent admission for thrombosed graft on 06/13/2024 and underwent a right upper extremity fistulogram with percutaneous mechanical thrombectomy, angioplasty and stenting. Patient reports graft was working fine with last dialysis session being 06/16/2024. Patient currently free from any other complaints including headache, lightheadedness, dizziness, chest pain, palpitations, shortness of breath, cough or congestion, nausea, vomiting, or experiencing any numbness/tingling/weakness/swelling in his extremities. Upon arrival to our facility, patient underwent evaluation in the emergency department. Vital (on arrival show blood pressure 157/71, heart rate 55, respiratory rate 18, temp 97.4 F, and SpO2 of 100% on room air. EKG completed showing normal sinus Bradycardia at 40 bpm with a first-degree AV block with ND interval of 316 ms T wave inversion in lateral lead aVL. Labs completed and reviewed. CBC showing bicytopenia with hemoglobin of 10.9 and platelet count of 138. Coagulation profile normal findings. BMP showing stable potassium of 4.3 and elevated renal function with BUN of 88, creatinine of 10.25, GFR of 4. Blood glucose 96. Liver profile unremarkable. Patient mated under services with consultation to vascular surgery. Review of systems: Pertinent positives and negatives as discussed in HPI, a complete review of systems was performed and all other systems are negative. Physical exam: Vital signs reviewed and stable. General: Nontoxic, no distress and appears stated age. Derm: Skin warm and dry, normal coloration for ethnicity. Head: Atraumatic, normocephalic and symmetric. Eyes: EOM's intact, no lid lag, and anicteric sclera Mouth: no lip lesions, mucus membranes moist Cardiovascular: regular rate and rhythm with normal S1S2, no murmur, positive posterior tibial pulses bilaterally, and cap refill < 2 seconds. AV fistula right upper extremity bruit and thrill were not present, sutures from previous fistulogram in place. Lungs: Respirations even, regular, and unlabored on room air. Lungs CTA bilaterally, no rhonchi, no rales, no wheezing, and no accessory muscle usage. Abdominal: soft, nontender to palpation, no guarding, no appreciable organomegaly Ext: ROM intact. No gross muscle atrophy, no edema, no contractures Neuro: Speech clear, face symmetrical and CN II-XII grossly intact with no noted focal neuro deficits Psych: Alert and oriented to person, place, time, and situation. Appropriate and pleasant affect. Assessment and Plan of Care: Malfunctioning/thrombosed AV fistula ESRD in need of hemodialysis Uremia Bicytopenia, chronic and stable -Consult placed to vascular surgery team, appreciate recommendations -Consult placed to nephrology for needed dialysis once patient has functioning dialysis access -Patient to remain on telemetry monitoring -Monitor vital signs. -Close monitoring of CBC and BMP for close following of renal function and electrolytes. Hypertension -Monitor vital signs and continue daily medication regimen with lisinopril 10 mg daily. Hyperlipidemia -Continue daily medication regimen with atorvastatin 10 mg nightly. Hypothyroidism -Continue levothyroxine 137 mcg daily. BPH -Continue Flomax 0.4 mg nightly. Glaucoma -Continue latanoprost ophthalmology drops 1 drop both eyes nightly and Alphagan ophthalmology drops 1 drop both eyes twice daily. Data and imaging reviewed: As stated above in HPI. The patient is admitted with an anticipated greater than 2 midnight stay for evaluation of malfunctioning/thrombosed AV fistula with ESRD in need of hemodialysis CODE STATUS: Full code DVT prophylaxis: Heparin, subcutaneously Anticipated discharge date: Pending clinical course Anticipated discharge place: Home Patient was seen independently by Nurse Practitioner. This document was prepared using everyArt dictation software. Please allow for errors in chief deputy while rare they do occur. Alexi Schmidt NP rendered care for this patient independently, reviewed the findings and plan as documented in the note above and agree with plan. I did not physically speak with or examine the patient on this date. Past Medical History Past Medical History: Eye Disorder, Hyperlipidemia, Hypertension, Renal Disease, Thyroid Disorder Additional Past Medical History / Comment(s): glaucoma julio eyes,myasthenia gravis, dialysis Tu//Sat History of Any Multi-Drug Resistant Organisms: None Reported Additional Past Surgical History / Comment(s): thymus gland removed 1988; AV fistula right upper extremity Past Anesthesia/Blood Transfusion Reactions: No Reported Reaction Past Psychological History: No Psychological Hx Reported Smoking Status: Never smoker Past Alcohol Use History: None Reported Past Drug Use History: None Reported - Past Family History Mother Family Medical History: Cancer Additional Family Medical History / Comment(s): lung Medications and Allergies Home Medications Medication Instructions Recorded Confirmed Type Brinzolamide/Brimonidine Tart 1 drop BOTH EYES BID 04/20/17 06/19/24 History [Simbrinza 1%-0.2% Eye Drops] Latanoprost Ophth [Xalatan 0.005%] 1 drop BOTH EYES HS 04/20/17 06/19/24 History Simvastatin [Zocor] 20 mg PO HS 04/20/17 06/19/24 History Tamsulosin HCl [Flomax] 0.4 mg PO HS 04/20/17 06/19/24 History Levothyroxine Sodium [Synthroid] 137 mcg PO DAILY 02/07/24 06/19/24 History lisinopriL [Zestril] 10 mg PO SUMOWEFR 02/07/24 06/19/24 History Aspirin EC [Ecotrin] 325 mg PO DAILY 06/12/24 06/19/24 History Phoslo 667mg Capsules 1,334 mg PO TID-W/MEALS 06/19/24 06/19/24 History Phoslo 667mg Capsules 667 mg PO DAILY PRN 06/19/24 06/19/24 History Allergies Allergy/AdvReac Type Severity Reaction Status Date / Time No Known Allergies Allergy Verified 06/19/24 15:53 Physical Exam Vitals: Vital Signs Temp Pulse Resp BP Pulse Ox 06/19/24 10:47 97.4 F L 55 L 18 157/71 100 Intake and Output 06/19/24 06/19/24 06/19/24 06:59 14:59 22:59 Other: Weight 95.254 kg Results CBC & Chem 7: 06/19/24 11:25 06/19/24 11:25 Labs: Abnormal Lab Results - Last 24 Hours (Table) 06/19/24 06/19/24 Range/Units : 11: RBC 4.00 L (4.30-5.90) m/uL Hgb 10.9 L (13.0-17.5) gm/dL Hct 34.8 L (39.0-53.0) % Plt Count 138 L (150-450) k/uL BUN 88 H (9-20) mg/dL Creatinine 10.25 H* (0.66-1.25) mg/dL Calcium 7.9 L (8.4-10.2) mg/dL
[2024-06-19] MEDS: CALCIUM ACETATE 667 MG TAB PO SCH (17:51)
[2024-06-19] MEDS: HEPARIN SODIUM,PORCINE 5,000 UNIT/ML 1 ML VIAL SQ SCH (21:08)
[2024-06-19] MEDS: ATORVASTATIN 10 MG TAB PO SCH (21:08)
[2024-06-19] MEDS: TAMSULOSIN 0.4 MG CAP.ER.24H PO SCH (21:08)
[2024-06-19] MEDS: BRIMONIDINE TARTRATE 0.2% DROPS 5 ML BTL BOTH EYES SCH (21:35)
[2024-06-19] MEDS: LATANOPROST 0.005% OPHTH DROPS 2.5 ML BTL BOTH EYES SCH (21:35)
[2024-06-19] MEDS: DORZOLAMIDE HCL 2% DROPS 10 ML BTL BOTH EYES SCH (21:37)
[2024-06-20] MEDS: LEVOTHYROXINE 137 MCG TAB PO SCH (06:13)
[2024-06-20] MEDS: ASPIRIN 325 MG TAB PO SCH (08:30)
[2024-06-20] MEDS: lisinopriL 10 MG TAB PO SCH (08:33)
[2024-06-20 08:35] LABS: HCT 31.6 % (39.6-50.0); HGB 9.9 g/dL (13.0-17.0); MCH 26.8 pg (27.0-32.0); MCHC 31.3 g/dL (32.0-37.0); MCV 85.6 FL (80.0-97.0); NRBC Per 100 WBC 0 X 10*3/uL (0.00-0.01); Platelet Count 142 X 10*3/uL (140-440); RBC 3.69 X 10*6/uL (4.40-5.60); RDW 15.4 % (11.5-14.5); WBC 4.82 X 10*3/uL (4.50-10.00)
[2024-06-20 08:49] LABS: BUN/Creat Ratio 8.08 Ratio (12.00-20.00); Blood Urea Nitrogen 83.2 mg/dL (9.0-27.0); Carbon Dioxide 25.7 mmol/L (21.6-31.8); Chloride 101 mmol/L (96-109); Glucose 88 mg/dL (70-110); Potassium 4.7 mmol/L (3.5-5.5); Sodium 142 mmol/L (135-145)
[2024-06-20 08:50] LABS: Magnesium 2.4 mg/dL (1.5-2.4)
--- NOTE | 2024-06-20 11:08 | P.NPCON ---
History of Present Illness - Reason for Consult end stage renal disease - History of Present Illness Reason for consultation: End-stage renal disease History of present illness: Patient is a 78-year-old male seen in renal consultation for end-stage renal disease. He is maintained on hemodialysis on Tuesday schedule. Last dialysis was on Tuesday. Patient states he went to hemodialys is yesterday morning and was noted to have a clotted AV graft. He was subsequently sent to the hospital. He is scheduled to undergo a fistulogram today and then dialysis afterwards. Potassium 4.7 today. He denies chest pain or shortness of breath. Denies history of diabetes or coronary artery disease. He does make urine. No other complaints at this time. Vital signs are stable. General: No acute distress. HEENT: Head exam is unremarkable. LUNGS: No audible rhonchi or wheezes. HEART: Rate and Rhythm are regular. ABDOMEN: Nontender. EXTREMITITES: No edema. Past Medical History Past Medical History: Eye Disorder, Hyperlipidemia, Hypertension, Renal Disease, Thyroid Disorder Additional Past Medical History / Comment(s): glaucoma julio eyes,myasthenia gravis, dialysis //Tue History of Any Multi-Drug Resistant Organisms: None Reported Additional Past Surgical History / Comment(s): thymus gland removed 1988; AV fistula right upper extremity Past Anesthesia/Blood Transfusion Reactions: No Reported Reaction Past Psychological History: No Psychological Hx Reported Smoking Status: Never smoker Past Alcohol Use History: None Reported Past Drug Use History: None Reported - Past Family History Mother Family Medical History: Cancer Additional Family Medical History / Comment(s): lung Medications and Allergies Home Medications Medication Instructions Recorded Confirmed Type Brinzolamide/Brimonidine Tart 1 drop BOTH EYES BID 04/20/17 06/19/24 History [Simbrinza 1%-0.2% Eye Drops] Latanoprost Ophth [Xalatan 0.005%] 1 drop BOTH EYES HS 04/20/17 06/19/24 History Simvastatin [Zocor] 20 mg PO HS 04/20/17 06/19/24 History Tamsulosin HCl [Flomax] 0.4 mg PO HS 04/20/17 06/19/24 History Levothyroxine Sodium [Synthroid] 137 mcg PO DAILY 02/07/24 06/19/24 History lisinopriL [Zestril] 10 mg PO SUMOWEFR 02/07/24 06/19/24 History Aspirin EC [Ecotrin] 325 mg PO DAILY 06/12/24 06/19/24 History Phoslo 667mg Capsules 1,334 mg PO TID-W/MEALS 06/19/24 06/19/24 History Phoslo 667mg Capsules 667 mg PO DAILY PRN 06/19/24 06/19/24 History Allergies Allergy/AdvReac Type Severity Reaction Status Date / Time No Known Allergies Allergy Verified 06/19/24 15:53 Physical Exam Vitals: Vital Signs Temp Pulse Pulse Resp BP BP Pulse Ox 06/20/24 08:25 12 06/20/24 07:00 98.1 F 45 L 16 150/61 100 06/20/24 03:28 97.4 F L 54 L 16 113/59 100 06/19/24 20:00 12 06/19/24 19:05 97.6 F 43 L 15 167/72 100 06/19/24 17:52 53 L 12 166/86 97 06/19/24 16:11 47 L 16 169/76 100 Intake and Output 06/19/24 06/20/24 06/20/24 22:59 06:59 14:59 Other: # Voids 1 1 Weight 95.254 kg Results - Lab Results Most recent lab results Calcium 8.0 mg/dL (8.7-10.3) L 06/20/24 04:27 Magnesium 2.4 mg/dL (1.5-2.4) 06/20/24 04:27 06/20/24 04:27 06/20/24 04:27 Assessment and Plan Plan: Assessment: 1. End-stage renal disease maintained on hemodialysis on Tuesday schedule. 2. Clotted AV graft scheduled for fistulogram today. 3. Hypertension with chronic kidney disease. 4. Chronic kidney disease mineral bone disease maintained on PhosLo. Plan: Hemodialysis today. Another treatment tomorrow per his outpatient schedule. Potential discharge after dialysis today. Thank you for the consultation. I will continue to follow the patient with you during his hospital stay.
[2024-06-20] MEDS: fentaNYL (PF) 50 MCG/ML 2 ML AMP IVP ONE (14:24)
[2024-06-20] MEDS: MIDAZOLAM 2 MG/2 ML VIAL IVP ONE (14:24)
[2024-06-20] MEDS: LIDOCAINE 1% INJ 10MG/ML (20 ML MDV) SQ ONE (14:24)
[2024-06-20] MEDS: HEPARIN SODIUM 1,000 UN/ML (10ML VL) IV ONE (14:36)
[2024-06-20 15:07] VITALS: RESP 16
--- NOTE | 2024-06-20 15:08 | IR ---
EXAMINATION TYPE: IR cvc insert central tunneled DATE OF EXAM: 06/20/2024 CLINICAL INDICATION: Male, 78 years old with history of OCCLUDED RT ARM GRAFT, TECHNIQUE: Fluoroscopy. COMPARISON: None. FINDINGS: Fluoroscopic guidance was provided during large bore right internal jugular dialysis shawna ter insertion procedure performed by Dr. Marino. A total of 30 seconds of fluoroscopic time was utili zed during the procedure and 38 spot images was acquired. Images acquired show placement of a large-b ore right internal jugular dialysis catheter. IMPRESSION: As Above. TOTAL DAP = 321.2 microGy x m2. [facility], , 06/20/2024 3:06 PM
--- NOTE | 2024-06-20 15:37 | XR ---
EXAMINATION TYPE: XR chest 1V portable DATE OF EXAM: 06/20/2024 CLINICAL INDICATION: Male, 78 years old with history of STATUS POST TUNNELED HEMODIALYSIS CATHETER, p rogress study. TECHNIQUE: Single AP portable upright view of the chest is obtained. COMPARISON: Chest x-ray from April 17, 2024 FINDINGS: There is new large bore right internal jugular dialysis catheter terminating in right atri um. No pneumothorax is seen. Overlying sternal wires are redemonstrated. Persistent cardiomegaly. Lungs remain clear. Osseous stru ctures are intact. IMPRESSION: As above. [facility], , 06/20/2024 3:35 PM
--- NOTE | 2024-06-20 16:40 | P.PN ---
Subjective Progress Note Date: 06/20/24 Hospital course: Patient is a 77-year-old male with a past medical history of ESRD on hemodialysis Tuesday//Saturdays, hypertension, hyperlipidemia, hypothy roidism, and glaucoma. He presented to the emergency department from hemodialysis center secondary to malfunctioning AV graft with concerns of thrombosed graft. Patient recently underwent admission for thrombosed graft on 06/13/2024 and underwent a right upper extremity fistulogram with percutaneous mechanical thrombectomy, angioplasty and stenting. Patient reports graft was working fine with last dialysis session being 06/16/2024. Patient currently free from any other complaints including headache, lightheadedness, dizziness, chest pain, palpitations, shortness of breath, cough or congestion, nausea, vomiting, or experiencing any numbness/tingling/weakness/swelling in his extremities. Upon arrival to our facility, patient underwent evaluation in the emergency department. Vital (on arrival show blood pressure 157/71, heart rate 55, respiratory rate 18, temp 97.4 F, and SpO2 of 100% on room air. EKG completed showing normal sinus Bradycardia at 40 bpm with a first-degree AV block with SD interval of 316 ms T wave inversion in lateral lead aVL. Labs completed and reviewed. CBC showing bicytopenia with hemoglobin of 10.9 and platelet count of 138. Coagulation profile normal findings. BMP showing stable potassium of 4.3 and elevated renal function with BUN of 88, creatinine of 10.25, GFR of 4. Blood glucose 96. Liver profile unremarkable. Patient admitted under services with consultation to vascular surgery and nephrology. Physical exam: Vital signs reviewed and stable. General: Nontoxic, no distress and appears stated age. Derm: Skin warm and dry, normal coloration for ethnicity. Head: Atraumatic, normocephalic and symmetric. Eyes: EOM's intact, no lid lag, and anicteric sclera Mouth: no lip lesions, mucus membranes moist Cardiovascular: Bradycardic rate and regular rhythm with normal S1S2, no murmur, positive posterior tibial pulses bilaterally, and cap refill < 2 seconds. AV fistula right upper extremity bruit and thrill were not present, sutures from previous fistulogram in place. Lungs: Respirations even, regular, and unlabored on room air. Lungs CTA bilaterally, no rhonchi, no rales, no wheezing, and no accessory muscle usage. Abdominal: soft, nontender to palpation, no guarding, no appreciable org anomegaly Ext: ROM intact. No gross muscle atrophy, no edema, no contractures Neuro: Speech clear, face symmetrical and CN II-XII grossly intact with no noted focal neuro deficits Psych: Alert and oriented to person, place, time, and situation. Appropriate and pleasant affect. Assessment and Plan of Care: Malfunctioning/thrombosed AV fistula ESRD in need of hemodialysis Uremia Bicytopenia, chronic and stable Chronic asymptomatic bradycardia -Vascular surgery following, planning to take patient for tunneled catheter hemodialysis placement later today. -Nephrology following, discussed with Dr. Christian Patient cleared from nephrology perspective after dialysis. -Patient to remain on telemetry monitoring -Monitor vital signs. -Close monitoring of CBC and BMP for close following of renal function and electrolytes. Hypertension Asymptomatic bradycardia, chronic -Monitor vital signs and continue daily medication regimen with lisinopril 10 mg daily. Avoid beta-blockers. Hyperlipidemia -Continue daily medication regimen with atorvastatin 10 mg nightly. Hypothyroidism -Continue levothyroxine 137 mcg daily. BPH -Continue Flomax 0.4 mg nightly. Glaucoma -Continue latanoprost ophthalmology drops 1 drop both eyes nightly and Alphagan ophthalmology drops 1 drop both eyes twice daily. Data and imaging reviewed: Morning labs reviewed. CBC showing stable normocytic anemia with hemoglobin of 9.9. BMP showing elevated anion gap of 15.30, BUN of 83.2, creatinine 10.3, and GFR of 5. Magnesium 2.4. Vital signs reviewed. Blood pressure 113/59, heart rate 54, respiratory rate 16, temp 97.4 F, and SpO2 of 100% on room air. CODE STATUS: Full code DVT prophylaxis: Heparin, subcutaneously Anticipated discharge date: Pending clinical course Anticipated discharge place: Home Patient was seen independently by Nurse Practitioner. This document was prepared using [employer] dictation software. Please allow for errors in rn sane while rare they do occur. Alexi Schmidt NP rendered care for this patient independently, reviewed the fin dings and plan as documented in the note above and agree with plan. I did not physically speak with or examine the patient on this date. Objective - Vital Signs Vital signs: Vital Signs Temp 98.1 F 06/20/24 07:00 Pulse 45 L 06/20/24 07:00 Resp 12 06/20/24 08:25 BP 150/61 06/20/24 07:00 Pulse Ox 100 06/20/24 07:00 FiO2 Intake & Output 06/19/24 06/20/24 06/20/24 18:59 06:59 18:59 Weight 95.254 kg Other: # Voids 1 - Labs CBC & Chem 7: 06/20/24 04:27 06/20/24 04:27 Labs: Abnormal Lab Results - Last 24 Hours (Table) 06/19/24 06/19/24 06/20/24 Range/Units 11: 11: 04:27 RBC 4.00 L 3.69 L (4.30-5.90) m/uL Hgb 10.9 L 9.9 L (13.0-17.5) gm/dL Hct 34.8 L 31.6 L (39.0-53.0) % MCH 26.8 L (27.0-32.0) pg MCHC 31.3 L (32.0-37.0) g/dL RDW 15.4 H (11.5-14.5) % Plt Count 138 L (150-450) k/uL Anion Gap (4.00-12.00) mmol/L BUN 88 H (9-20) mg/dL Creatinine 10.25 H* (0.66-1.25) mg/dL Est GFR (CKD-EPI) (>=60) BUN/Creatinine Ratio (12.00-20.00) Ratio Calcium 7.9 L (8.4-10.2) mg/dL 06/20/24 Range/Units 04:27 RBC (4.30-5.90) m/uL Hgb (13.0-17.5) gm/dL Hct (39.0-53.0) % MCH (27.0-32.0) pg MCHC (32.0-37.0) g/dL RDW (11.5-14.5) % Plt Count (150-450) k/uL Anion Gap 15.30 H (4.00-12.00) mmol/L BUN 83.2 H (9-20) mg/dL Creatinine 10.3 H (0.66-1.25) mg/dL Est GFR (CKD-EPI) 5 L (>=60) BUN/Creatinine Ratio 8.08 L (12.00-20.00) Ratio Calcium 8.0 L (8.4-10.2) mg/dL
--- NOTE | 2024-06-20 16:43 | P.DS ---
Providers Date of admission: 06/19/24 14:10 Expected date of discharge: 06/20/24 Attending physician: Kurt Gama Consults: 06/19/24 14:08 Consult Physician Urgent Consulting Provider: Jarvis Rosales Consult Reason/Comments: Fistula malfunction Do you want consulting provider notified?: Yes Consult Physician Urgent Consulting Provider: Yasmani Christian Consult Reason/Comments: Fistula malfunction Do you want consulting provider notified?: Yes Primary care physician: Vasquez Morton MD Hospital Course: Discharge Diagnosis: Malfunctioning/thrombosed AV fistula. Patient underwent placement of tunneled hemodialysis catheter by vascular surgery. After x-ray confirmation, patient to begin hemodialysis and may be discharged after hemodialysis complete. ESRD in need of hemodialysis Uremia Bicytopenia, chronic and stable Chronic asymptomatic bradycardia Hypertension Asymptomatic bradycardia, chronic Hyperlipidemia Hypothyroidism BPH Glaucoma Hospital Course: Patient is a 77-year-old male with a past medical history of ESRD on hemodialysis Tuesday//Saturdays, hypertension, hyperlipidemia, hypothyroidism, and glaucoma. He presented to the emergency department from hemodialysis center secondary to malfunctioning AV graft with concerns of thrombosed graft. Patient recently underwent admission for thrombosed graft on 06/13/2024 and underwent a right upper extremity fistulogram with percutaneous mechanical thrombectomy, angioplasty and stenting. Patient reports graft was working fine with last dialysis session being 06/16/2024. Patient currently free from any other complaints including headache, lightheadedness, dizziness, chest pain, palpitations, shortness of breath, cough or congestion, nausea, vomiting, or experiencing any numbness/tingling/weakness/swelling in his extremities. Upon arrival to our facility, patient underwent evaluation in the emergency department. Vital (on arrival show blood pressure 157/71, heart rate 55, respiratory rate 18, temp 97.4 F, and SpO2 of 100% on room air. EKG completed showing normal sinus Bradycardia at 40 bpm with a first-degree AV block with AK interval of 316 ms T wave inversion in lateral lead aVL. Labs completed and reviewed. CBC showing bicytopenia with hemoglobin of 10.9 and platelet count of 138. Coagulation profile normal findings. BMP showing stable potassium of 4.3 and elevated renal function with BUN of 88, creatinine of 10.25, GFR of 4. Blood glucose 96. Liver profile unremarkable. Patient admitted under services with consultation to vascular surgery and nephrology. Patient underwent placement of tunneled hemodialysis catheter by vascular surgery. After x-ray confirmation, patient to begin hemodialysis and may be discharged after hemodialysis complete. A total of 31 minutes of time were spent preparing this complex discharge summary. Pt was discharged on 06/20/2024 at 3:17 PM. Patient was seen independently by Nurse Practitioner. This document was prepared using [employer] dictation software. Please allow for errors in powerhouse operator while rare they do occur. Alexi Schmidt NP rendered care for this patient independently, reviewed the findings and plan as documented in the note above. I did not physically speak with or examine the patient on this date. Patient Condition at Discharge: Stable Plan - Discharge Summary Discharge Rx Participant: No New Discharge Prescriptions: Continue Simvastatin [Zocor] 20 mg PO HS Latanoprost Ophth [Xalatan 0.005%] 1 drop BOTH EYES HS Brinzolamide/Brimonidine Tart [Simbrinza 1%-0.2% Eye Drops] 1 drop BOTH EYES BID Tamsulosin HCl [Flomax] 0.4 mg PO HS lisinopriL [Zestril] 10 mg PO SUMOWEFR Phoslo 667mg Capsules 667 mg PO DAILY PRN PRN Reason: snacks Levothyroxine Sodium [Synthroid] 137 mcg PO DAILY Aspirin EC [Ecotrin] 325 mg PO DAILY Phoslo 667mg Capsules 1,334 mg PO TID-W/MEALS Discharge Medication List Brinzolamide/Brimonidine Tart [Simbrinza 1%-0.2% Eye Drops] 1 drop BOTH EYES BID 04/20/17 [History] Latanoprost Ophth [Xalatan 0.005%] 1 drop BOTH EYES HS 04/20/17 [History] Simvastatin [Zocor] 20 mg PO HS 04/20/17 [History] Tamsulosin HCl [Flomax] 0.4 mg PO HS 04/20/17 [History] Levothyroxine Sodium [Synthroid] 137 mcg PO DAILY 02/07/24 [History] lisinopriL [Zestril] 10 mg PO SUMOWEFR 02/07/24 [History] Aspirin EC [Ecotrin] 325 mg PO DAILY 06/12/24 [History] Phoslo 667mg Capsules 1,334 mg PO TID-W/MEALS 06/19/24 [History] Phoslo 667mg Capsules 667 mg PO DAILY PRN 06/19/24 [History] Follow up Appointment(s)/Referral(s): Vasquez Morton MD [Primary Care Provider] - 1-2 days Activity/Diet/Wound Care/Special Instructions: Activity: As tolerated. Take breaks as needed. Diet: Continue heart healthy renal diet Special Instructions: Take all of your medications as directed and remember to keep all of your doctor's appointments and follow-up as needed. Continue to follow-up outpatient with dialysis as previously scheduled Tuesdays//Saturdays. Thank you for allowing us to participate in your care, it was truly a pleasure having you for our patient!!! Discharge Disposition: HOME SELF-CARE
[2024-06-20 19:04] VITALS: BP 158/80; PULSE 42; TEMP 97.8
--- NOTE | 2024-06-21 07:59 | P.OP ---
Date of Procedure: 06/21/24 Description of Procedure: DATE OF PROCEDURE: 06/20/2024 PREOPERATIVE DIAGNOSIS: Need for dialysis, thrombosed right upper extremity loop forearm graft, recent intervention last week PROCEDURE: 1. Ultrasound-guided right internal jugular vein access. 2. Placement of a 23 cm tunneled dialysis catheter with fluoroscopic assistance. 3. Moderate conscious sedation times 20 minutes PROCEDURE: The patient was brought to the Steward/Stewardess Lounge placed in supine position. The bilateral necks were prepped and draped in usual sterile fashion. A preprocedure timeout was performed, all parties were in agreement. Using ultrasound the right internal jugular was identified. The site overlying the vein was anesthetized with 1% lidocaine plain and an access needle was used to gain access to the internal jugular vein with return of dark venous, nonpulsatile blood. Seldinger technique was used and a micro-access sheath was placed. Attention was then turned towards the tunnel. The chest wall was anesthetized with 1% lidocaine plain. A small mono and the skin was made and the previously flushed catheter was tunneled through the anticipated location. Using Seldinger technique and fluoroscopic assistance, the 35 Glidewire was placed and the tract was serially dilated. The final tear-away sheath was left in place. The inner cannula and wire were removed. The catheter was placed in the tear-away sheath was removed in standard fashion. The catheter showed good positioning was final resting place in the cavoatrial junction. The catheter aspirated and flushed freely. The incision at the neck was reapproximated with interrupted sutures of 4-0 Vicryl. The catheter was sutured in place with 3-0 nylon. Dressings were placed. The patient was allowed to awaken from anesthesia and transferred to recovery in stable condition having tolerated the procedure well. A post procedure chest x-ray is pending
== END 2024-06-20 19:53 | disposition home or self-care (01) ==
LOC: EC 10:42 → 6NMEDSUR 14:10
PROVIDERS: ADMIT Student in an Organized Health Care Education/Training Program; ATTEND Student in an Organized Health Care Education/Training Program
DX: T82.868A Thrombosis due to vascular prosthetic devices, implants and grafts, initial encounter (principal); Y83.2 Surgical operation with anastomosis, bypass or graft as the cause of abnormal reaction of the patient, or of later complication, without mention of misadventure at the time of the procedure; I12.0 Hypertensive chronic kidney disease with stage 5 chronic kidney disease or end stage renal disease; N18.6 End stage renal disease; E03.9 Hypothyroidism, unspecified; R00.1 Bradycardia, unspecified; E78.5 Hyperlipidemia, unspecified; N40.0 Benign prostatic hyperplasia without lower urinary tract symptoms; H40.9 Unspecified glaucoma; Z99.2 Dependence on renal dialysis; Z79.890 Hormone replacement therapy; Z79.82 Long term (current) use of aspirin; Z79.899 Other long term (current) drug therapy; Z53.29 Procedure and treatment not carried out because of patient's decision for other reasons
CPT/HCPCS: 96372 ×2; 99284; 36415; 93005; 80053; 80048; 83735; 85025; 85027; 85610; 85730; 71045; 36558; G0378 ×2; J2250; J1644 ×3; J2003; J3010; 90935

== ENCOUNTER 2024-10-17 07:58 | Day surgery (SDC) | payer MEDICARE ==
[~2024-10-17 07:58] MED LIST changes: -HYDROmorphone 0.5 MG/0.5 ML SYRINGE IVP PRN; -LACTATED RINGERS 1,000 ML IV SCH; -LIDOCAINE 1% (10MG/ML) FOR IV START INTRADERMA PRN; +TETRACAINE 0.5% OPHTH (PF) DROPS 4 ML BTL OP PRN; -droPERidol 5 MG/2 ML VIAL IVP ONE
[2024-10-17 08:38] VITALS: RESP 16; TEMP 97.2
[2024-10-17] MEDS: SODIUM CHLORIDE 0.9% 250 ML IV ONE (08:54)
[2024-10-17] MEDS: IV FLUID CONTINUATION 1,000 ML IV ONE (08:54)
[2024-10-17] MEDS: CYCLOPENTOLATE 1% OPHTH SOLN 2 ML BTL OP PRN (08:54)
[2024-10-17] MEDS: LACTATED RINGERS 1,000 ML IV SCH (08:55)
[2024-10-17] MEDS: PHENYLEPHRINE 2.5% OPHTH DRP 2ML OP PRN (08:56)
[2024-10-17] MEDS ORDERED: GLYCOPYRROLATE 0.2 MG/ML 2 ML VIAL ONE (09:43)
[2024-10-17] MEDS ORDERED: MIDAZOLAM 2 MG/2 ML VIAL ONE (09:43)
[2024-10-17] MEDS ORDERED: fentaNYL (PF) 50 MCG/ML 2 ML AMP ONE (09:43)
[2024-10-17] MEDS: EPINEPHrine (PF) 0.3 ML in BALANCED SALT IRRIG SOLN COMB2 500 ML IRRIGATION ONE (09:52)
[2024-10-17] MEDS: BALANCED SALT IRRIG SOLN COMB2 15 ML IRRIG.SOLN INTRAOCULA ONE (09:53)
[2024-10-17] MEDS: EPINEPHrine (PF) 1 MG/ML AMP SQ ONE (09:54)
[2024-10-17] MEDS: DUOVISC KIT (GREEN BOX) INTRAOCULA ONE (09:54)
[2024-10-17] MEDS: LIDOCAINE 1% (PF) 10MG/ML VIAL MISCELLANE ONE (09:54)
[2024-10-17] MEDS: MOXIFLOXACIN HCL 0.5% DROPS 3 ML BTL OP PRN (09:55)
[2024-10-17] MEDS: TIMOLOL 0.5% OPHTH DROPS 5 ML BTL OP PRN (09:55)
--- NOTE | 2024-10-17 10:33 | P.OP ---
Date of Procedure: 10/17/24 Preoperative Diagnosis: NS & CS & reg astig & POAG moderate Postoperative Diagnosis: same Procedure(s) Performed: PIOL, & goniotomy Implants: [id number] 22.50 Anesthesia: MAC Surgeon: Sidney Raman Pathology: none sent Condition: stable Disposition: same day Indications for Procedure: BLURRY VISION AND GLAUCOMA CONTROL Operative Findings: no complications
[2024-10-17 10:51] VITALS: PULSE 61
[2024-10-17 11:02] VITALS: BP 122/69
--- NOTE | 2024-10-18 09:36 | OP ---
OPERATIVE REPORT DATE OF SERVICE : 10/17/2024 PREOPERATIVE DIAGNOSES: Nuclear sclerosis, cortical sclerosis and primary open-angle glaucoma, moderate stage and exposure to Flomax. 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 OPERATION: Phacoemulsification of cataract and intraocular lens implant of the left eye with goniotomy of the left eye. ANESTHESIA: Topical. ESTIMATED BLOOD LOSS: Less than 5 mL. SPECIMEN TAKEN: None. NARRATIVE: After obtaining the appropriate consent, the patient was brought to the operating room. There, he was placed under cardiac monitoring and prepped and draped in the usual sterile manner. Using previously acquired corneal topography information, the axis marker was used to identify an axis of 6 degrees according to his prior corneal topography. At the 5 o'clock position, an MVR blade was used to create a paracentesis port. Through this opening, 1% Xylocaine MPF, epinephrine 1:1000 MPF, and balanced salt solution in a ratio 1:2:1 was injected into the anterior chamber. This was followed by instillation of Trypan blue, which was allowed to stay in the eye for 90 seconds. This was irrigated away with balanced salt solution and the anterior chamber of the eye was stabilized with Viscoat. At the 3 o'clock position, a 2.5 mm keratome was used to create a self-sealing corneal flap incision. The patient was then asked to rotate his head approximately 45 degrees to his right and a gonioprism was placed on the patient's eye to identify the trabecular meshwork. Using a zonia and meet method, a KDB goniotomy knife was advanced across the anterior chamber and approximately 4 to 5 clock hours of trabecular meshwork was removed. There was a moderate amount of bleeding identified as would be expected. This was followed by additional Viscoat to stabilize further the anterior chamber. Due to concerns of continued iris instability, a 7 mm Malyugin ring was inserted on the pupillary sphincter and this was followed by beginning a continuous tear capsulorrhexis using a cystotome. This was then completed using the Utrata forceps. Hydrodissection and hydrodelineation of the lens were accomplished with balanced salt solution. Phacoemulsification of the lens utilizing phacochop was accomplished in 14.83 seconds at 12.2% power. Additional med mix was instilled into the anterior chamber. This was followed by removal of the remaining cortical material under irrigation and aspiration including very careful capsule polishing under the capsule vacuum mode. Provisc was then used to stabilize the capsular bag and a Edwin and Edwin intraocular lens model [id number] 22.5 diopter posterior chamber intraocular lens was then inserted into the capsular bag without difficulty. The lens was generally aligned with the tip of the irrigation aspiration instrument. Careful removal of viscoelastic from in and around the intraocular lens self was accomplished and then followed by removal of the Malyugin ring 1 last confirmation of the orientation of the lens with the previously placed akins on the anterior cornea with final aspiration of all remaining viscoelastic from within the anterior chamber. The eye was then infiltrated with balanced salt solution with hydration of both paracentesis as well as the temporal incision, bringing the intraocular pressure somewhat above normal to tamponade further any additional bleeding from within the eye. He then received 2 drops of 0.5% timolol followed by 2 drops of 0.5% moxifloxacin was then lightly patched and shielded in the usual manner. There were no complications from the procedure. He tolerated the procedure well and was returned to outpatient recovery in good condition. MMODL / IJN: [id number] /
== END 2024-10-17 10:16 | disposition home or self-care (01) ==
LOC: OR 07:58
PROVIDERS: ATTEND Ophthalmology
DX: H25.12 Age-related nuclear cataract, left eye (principal); H25.012 Cortical age-related cataract, left eye; H40.221 Chronic angle-closure glaucoma, right eye; H40.222 Chronic angle-closure glaucoma, left eye; H00.023 Hordeolum internum right eye, unspecified eyelid; H47.393 Other disorders of optic disc, bilateral; H25.11 Age-related nuclear cataract, right eye; H00.026 Hordeolum internum left eye, unspecified eyelid; H04.123 Dry eye syndrome of bilateral lacrimal glands; H52.4 Presbyopia; H52.13 Myopia, bilateral; H40.9 Unspecified glaucoma; E78.5 Hyperlipidemia, unspecified; I10 Essential (primary) hypertension; E07.9 Disorder of thyroid, unspecified; N28.9 Disorder of kidney and ureter, unspecified; M19.90 Unspecified osteoarthritis, unspecified site; Z79.82 Long term (current) use of aspirin; Z79.890 Hormone replacement therapy; Z79.899 Other long term (current) drug therapy
CPT/HCPCS: 84132; 66984; 65820; V2632; J2250; J3010; J2003; J1596; J0166

== ENCOUNTER 2024-10-31 08:01 | Day surgery (SDC) | payer MEDICARE ==
[2024-10-29 09:32] VITALS: BMI 27.0
[~2024-10-31 08:01] MED LIST changes: +MOXIFLOXACIN HCL 0.5% DROPS 3 ML BTL OP PRN; +TIMOLOL 0.5% OPHTH DROPS 5 ML BTL OP PRN
[2024-10-31] MEDS ORDERED: LACTATED RINGERS 1,000 ML IV SCH (08:43)
[2024-10-31] MEDS: CYCLOPENTOLATE 1% OPHTH SOLN 2 ML BTL OP PRN (09:47)
[2024-10-31] MEDS: PHENYLEPHRINE 2.5% OPHTH DRP 2ML OP PRN (09:50)
[2024-10-31 09:53] VITALS: TEMP 97.5
[2024-10-31] MEDS: IV FLUID CONTINUATION 1,000 ML IV ONE (10:02)
[2024-10-31] MEDS: SODIUM CHLORIDE 0.9% 1,000 ML IV STA (10:10)
[2024-10-31] MEDS ORDERED: MIDAZOLAM 2 MG/2 ML VIAL ONE (10:31)
[2024-10-31] MEDS: EPINEPHrine (PF) 0.3 ML in BALANCED SALT IRRIG SOLN COMB2 500 ML IRRIGATION ONE (10:33)
[2024-10-31] MEDS: DUOVISC KIT (GREEN BOX) INTRAOCULA ONE (10:39)
[2024-10-31] MEDS: LIDOCAINE 1% (PF) 10MG/ML VIAL MISCELLANE ONE (10:39)
[2024-10-31] MEDS: BALANCED SALT IRRIG SOLN COMB2 15 ML IRRIG.SOLN INTRAOCULA ONE (10:39)
[2024-10-31] MEDS: TRYPAN BLUE 0.06% SYRINGE 0.5 ML SYRINGE INTRAOCULA ONE (10:48)
--- NOTE | 2024-10-31 11:17 | P.OP ---
Date of Procedure: 10/31/24 Preoperative Diagnosis: NS & CS Postoperative Diagnosis: same Procedure(s) Performed: PIOL & goniotomy OD Implants: [id number] 20.50 Anesthesia: MAC Surgeon: Sidney Raman Pathology: none sent Condition: stable Disposition: same day Indications for Procedure: blurry vision Operative Findings: no complications
[2024-10-31 11:55] VITALS: BP 151/73; PULSE 55; RESP 16
--- NOTE | 2024-11-01 00:23 | OP ---
OPERATIVE REPORT DATE OF SERVICE : 10/31/2024 PREOPERATIVE DIAGNOSES: Nuclear sclerosis, cortical sclerosis, regular astigmatism and open-angle glaucoma, mild stage. POSTOPERATIVE DIAGNOSES: Nuclear sclerosis, cortical sclerosis, regular astigmatism and open-angle glaucoma, mild stage. OPERATION: Phacoemulsification of cataract and intraocular lens implant of the right eye with goniotomy of the right eye. ANESTHESIA: Topical. ESTIMATED BLOOD LOSS: Less than 5 mL. SPECIMEN TAKEN: None. NARRATIVE: After obtaining the appropriate consent, the patient was brought to the operating room. There, he was placed under cardiac monitoring and prepped and draped in the usual sterile manner. He was approached from his right temporal side using previously acquired corneal topography information. The axis of 154 degrees was identified and marked with a OLX axis marker. At the 11 o'clock position, an MVR blade was used to create a paracentesis. Through this opening, 1% Xylocaine MPF with epinephrine 1:1000 MPF and balanced salt solution in a ratio of 2:1. This was instilled into the anterior chamber of the eye. This was followed by installation of Trypan blue, which was allowed to stay in the eye for 90 seconds. This was irrigated away with balanced salt solution and the anterior chamber was then stabilized using Viscoat. At the 9 o'clock position, a 2.5 mm keratome was used to create a self-sealing corneal flap incision. Additional Viscoat was placed on the patient's cornea. The patient was asked to rotate his head to his left, maintaining a gaze in a straight-ahead fashion and a gonioprism was placed on the patient's cornea. The trabecular meshwork was easily outlined with the Trypan blue and using an inside-out method, a [place] dual blade was advanced across the anterior chamber and approximately 4-1/2 to 5 clock hours of trabecular meshwork was removed from the nasal area of the eye. Some bleeding was encountered as was expected. Additional Viscoat was used to displace the blood when the patient was rotated back to the normal supine position due. Due to difficulty maintaining proper pupillary dilation, a 7 mm Malyugin ring was inserted on the pupillary sphincter and this was followed by placement of a cystotome into the anterior chamber to begin a continuous tear capsulorrhexis, which was completed using the Utrata forceps. Hydrodissection and hydrodelineation of the lens were accomplished with balanced salt solution. Phacoemulsification of the lens utilizing phaco chop was accomplished at 11.45 seconds at 17.8% power. Additional med mixture was instilled into the anterior chamber. This was followed by removal of the remaining cortical material under irrigation and aspiration as well as careful polishing of the posterior capsule in the capsule vacuum mode. Provisc was then used to stabilize the capsular bag. A Edwin and Edwin model FPP382, 20.5 diopter posterior chamber intraocular lens was inserted into the capsular bag without difficulty. After removing viscoelastic from in and around the intraocular lens, the lens was aligned with the previously placed akins on the patient's cornea. A small amount of Provisc was used to separate the lens from the endothelium of the cornea and the Malyugin ring was disinserted from the nasal side and removed from the temporal incision. The remaining viscoelastic was then removed under irrigation and aspiration without difficulty. The eye was then brought to normal intraocular pressure through the paracentesis port. All wounds were confirmed watertight. He then received 2 drops of 0.5% timolol followed by 2 drops of 0.5% moxifloxacin and at the end of the case, the internal pressure of the eye was brought somewhat above normal intra-ocular pressure to maintain hemostasis from the trabecular meshwork in the early postoperative phase. The eye was then lightly patched and shielded in the usual manner and he was returned to recovery in good condition. VIKRAM / OLEGARIO: [id number] /
== END 2024-10-31 12:02 | disposition home or self-care (01) ==
LOC: OR 08:01
PROVIDERS: ATTEND Ophthalmology
DX: H25.11 Age-related nuclear cataract, right eye (principal); H40.221 Chronic angle-closure glaucoma, right eye; H52.221 Regular astigmatism, right eye; I10 Essential (primary) hypertension; E07.9 Disorder of thyroid, unspecified; N18.6 End stage renal disease; Z79.82 Long term (current) use of aspirin; Z79.890 Hormone replacement therapy; Z99.2 Dependence on renal dialysis
CPT/HCPCS: 84132; 65820; 66984; V2632; J2250; J2003; J0166